=== PATIENT | male | born 1960 | race Caucasian/White ===

== ENCOUNTER 2017-03-15 10:39 | Observation (INO) | payer BC ==
[~2017-03-15] VITALS: Ht 170.2 cm; Wt 80.4 kg
[2017-03-15] VITALS (13 sets, daily range): BP systolic 92–115; BP diastolic 44–72
[2017-03-15] MEDS ORDERED: NITROGLYCERIN SUBLINGUAL 0.4 MG BOTTLE OF 25. SL PRN ×2 (11:00→12:45)
[2017-03-15] MEDS ORDERED: RANI150T2 PO (11:09)
[2017-03-15] MEDS ORDERED: ASPI325T8 PO (11:09)
[2017-03-15] MEDS ORDERED: LISI1TAB7 PO (11:09)
[2017-03-15] MEDS ORDERED: TAMS0.4C2 PO (11:09)
[2017-03-15] MEDS ORDERED: CHOL10003 PO (11:09)
[2017-03-15] MEDS ORDERED: MULT-658 PO (11:09)
--- NOTE | 2017-03-15 11:17 | RAD ---
One view of the Chest 03/15/2017 12:58 PM Indication: CP, dizziness, since this morning. Comparison: Chest radiograph March 11, 2006. Findings: There is no focal consolidation or infiltrate identified. There is no effusion or pneumothorax. prior median sternotomy noted. Heart size appears to be within normal limits.. No osseous abnormality is identified. Impression: No evidence of acute cardiopulmonary process.
--- NOTE | 2017-03-15 11:27 | ED.ADGEN ---
Past Medical History Past Medical History: CAD, High Cholesterol, Heart Disease, Hypertension, Other Additional Past Medical Histor: BPH Past Surgical History: Tonsillectomy, Other Additional Past Surgical Histo: "removal of thymus", cardiac cath with stent, knee and shoulder surgery Additional Information: 1 ppd x 50 years Alcohol Use: None Drug Use: None Adult General Chief Complaint Chief Complaint: CHEST PAIN HPI HPI Patient is a 56 year old man, history of hypertension, hypercholesterolemia, BPH, CAD status post stent placement in 2005, who smokes a pack of cigarettes a day for the past 50 years, who presents the emergency department with a complaint of chest tightness radiating to his jaw that began this morning. Associated with nausea, no shortness of breath, is a tightness across the left and central portion of his chest. Patient states that he woke up and was feeling "off". He states that he was washing his motorcycle, and began experiencing some chest tightness, states he was basically "ignoring it", however later in the morning around 10:00, it became worse, which prompted him to come to the ED for evaluation. He states that he was evaluated less than a year ago for similar symptoms, at that time he was told that he might need a catheterization, but it was not performed. He states he has not had a catheterization performed since his stent was placed. He has a family history of heart disease in his mother, and in his father, and a personal history of placement of 1 stent 11 years ago as stated. He states that he does take a full dose aspirin daily, has been taking all his medications as directed by his primary care provider Dr. Chavez. Denies any vomiting, states he was feeling nauseous with chest pain, no belching, no weakness, numbness or tingling, no back pain, no abdominal pain, no headache, no injuries, no swelling of the extremities, no rashes, no recent travel or surgery, no history of DVT or PE in himself or family members. Review of Systems Review of Systems Constitutional: Denies fever or chills. [] Eyes: Denies change in visual acuity. [] HENT: Denies nasal congestion or sore throat. [] Respiratory: Denies cough or shortness of breath. [] Cardiovascular: Complaining of left and central chest pain and pressure since this morning. GI: Nausea, Denies abdominal pain, vomiting, bloody stools or diarrhea. [] : Denies dysuria. [] Musculoskeletal: Denies back pain or joint pain. [] Integument: Denies rash. [] Neurologic: Denies headache, focal weakness or sensory changes. [] Endocrine: Denies polyuria or polydipsia. [] Lymphatic: Denies swollen glands. [] Psychiatric: Denies depression or anxiety. [] Current Medications Current Medications Current Medications Medications (Trade) Dose Ordered Sig/Eddie Start Time Stop Time Status Last Admin Dose Admin Fentanyl Citrate (Fentanyl 2ml Vial) 25 mcg PRN Q15MIN PRN 03/15/17 11:00 03/16/17 10:59 03/15/17 13:28 25 MCG Nitroglycerin (Nitrostat) 0.4 mg PRN Q5MIN PRN 03/15/17 11:00 03/16/17 10:59 03/15/17 11:27 0.4 MG Allergies Allergies Allergies Coded Allergies Type Severity Reaction Last Updated Verified codeine Allergy Intermediate 03/15/17 Yes Physical Exam Physical Exam Constitutional: Well developed, well nourished, no acute distress, non-toxic appearance. [] HENT: Normocephalic, atraumatic, bilateral external ears normal, oropharynx moist, no oral exudates, nose normal. [] Eyes: PERRLA, EOMI, conjunctiva normal, no discharge. [] Neck: Normal range of motion, no tenderness, supple, no stridor. [] Cardiovascular:Heart rate regular rhythm, no murmur, S1, S2, no rubs or gallops. No chest wall crepitus or tenderness, unable to reproduce symptoms with palpation. [] Lungs & Thorax: Bilateral breath sounds clear to auscultation, no wheezing, rhonchi, rales. No lesions. Abdomen: Bowel sounds normal, soft, no tenderness, no rebound, rigidity, no guarding, no masses, no pulsatile masses. [] Skin: Warm, dry, no erythema, no rash. [] Back: No tenderness, no CVA tenderness. [] Extremities: No tenderness, no cyanosis, no clubbing, ROM intact, no edema. Negative Homans sign. [] Neurologic: Alert and oriented X 3, normal motor function, normal sensory function, no focal deficits noted. [] Psychologic: Affect normal, judgement normal, mood normal. [] Current Patient Data Vital Signs Vital Signs Date Time Temp Pulse Resp B/P (MAP) Pulse Ox O2 Delivery O2 Flow Rate FiO2 03/15/17 11:27 75 111/67 03/15/17 10:51 98.4 20 96 Room Air 98.4 Lab Values Laboratory Tests Test 03/15/17 11:20 White Blood Count 11.1 x10^3/uL (4.0-11.0) H Red Blood Count 4.74 x10^6/uL (4.30-5.70) Hemoglobin 14.9 g/dL (13.0-17.5) Hematocrit 43.3 % (39.0-53.0) Mean Corpuscular Volume 91 fL (79-100) Mean Corpuscular Hemoglobin 32 pg (25-35) Mean Corpuscular Hemoglobin Concent 35 g/dL (31-37) Red Cell Distribution Width 12.7 % (11.5-14.5) Platelet Count 191 x10^3/uL (140-400) Neutrophils (%) (Auto) 61 % (31-73) Lymphocytes (%) (Auto) 27 % (24-48) Monocytes (%) (Auto) 6 % (0-9) Eosinophils (%) (Auto) 5 % (0-3) H Basophils (%) (Auto) 1 % (0-3) Neutrophils # (Auto) 6.8 x10^3uL (1.8-7.7) Lymphocytes # (Auto) 3.0 x10^3/uL (1.0-4.8) Monocytes # (Auto) 0.7 x10^3/uL (0.0-1.1) Eosinophils # (Auto) 0.5 x10^3/uL (0.0-0.7) Basophils # (Auto) 0.1 x10^3/uL (0.0-0.2) Prothrombin Time 13.0 SEC (11.7-14.0) Prothrombin Time INR 1.0 (0.8-1.1) PTT 30 SEC (24-38) Urine Collection Type Void Urine Color Yellow Urine Clarity Clear Urine pH 6.0 Urine Specific [place] 1.015 Urine Protein Negative mg/dL (NEG-TRACE) Urine Glucose (UA) Negative mg/dL (NEG) Urine Ketones (Stick) Negative mg/dL (NEG) Urine Blood Negative (NEG) Urine Nitrite Negative (NEG) Urine Bilirubin Negative (NEG) Urine Urobilinogen Dipstick 0.2 mg/dL (0.2 mg/dL) Urine Leukocyte Esterase Negative (NEG) Urine RBC 1-2 /HPF (0-2) Urine WBC Occ /HPF (0-4) Urine Squamous Epithelial Cells Occ /LPF Urine Bacteria 0 /HPF (0-FEW) Urine Mucus Slight /LPF Sodium Level 141 mmol/L (136-145) Potassium Level 4.2 mmol/L (3.5-5.1) Chloride Level 106 mmol/L (98-107) Carbon Dioxide Level 25 mmol/L (21-32) Anion Gap 10 (6-14) Blood Urea Nitrogen 19 mg/dL (8-26) Creatinine 1.0 mg/dL (0.7-1.3) Estimated GFR (Cockcroft-Gault) 77.6 Glucose Level 104 mg/dL (70-99) H Calcium Level 8.7 mg/dL (8.5-10.1) Total Bilirubin 0.3 mg/dL (0.2-1.0) Direct Bilirubin 0.1 mg/dL (0.0-0.2) Aspartate Amino Transferase (AST) 21 U/L (15-37) Alanine Aminotransferase (ALT) 24 U/L (16-63) Alkaline Phosphatase 96 U/L (46-116) Troponin I Quantitative < 0.017 ng/mL (0.000-0.055) SI-Ljr-G-Type Natriuretic Peptide 12 pg/mL (0-124) Total Protein 6.8 g/dL (6.4-8.2) Albumin 4.4 g/dL (3.4-5.0) Lipase 342 U/L (73-393) Urine Opiates Screen Neg (NEG) Urine Methadone Screen Neg (NEG) Urine Barbiturates Neg (NEG) Urine Phencyclidine Screen Neg (NEG) Urine Amphetamine/Methamphetamine Neg (NEG) Urine Benzodiazepines Screen Neg (NEG) Urine Cocaine Screen Neg (NEG) Urine Cannabinoids Screen Neg (NEG) Urine Ethyl Alcohol Neg (NEG) Laboratory Tests 03/15/17 11:20 Laboratory Tests 03/15/17 11:20 EKG EKG EC: Sinus rhythm, heart rate 81 beats/minute, upright axis, QTC of 400, [place] 124, QRS of 76, contour abnormalities noted in the anterior septal leads, contour abnormalities also noted in lead 2, no prior for comparison. Abnormal ECG, does not meet STEMI criteria. As interpreted by me. [] Radiology/Procedures Radiology/Procedures [][facility] [address] [place] [address] IMAGING REPORT Signed PATIENT: CLIVE OTOOLE ACCOUNT: [id number] : 1960 LOCATION: ER AGE: 56 SEX: M EXAM STATUS: PRE ER ORD. PHYSICIAN: SARAH HARO DO REASON: CP, dizziness, since this morning. PROCEDURE: PORTABLE CHEST 1V One view of the Chest 03/15/2017 12:58 PM Indication: CP, dizziness, since this morning. Comparison: Chest radiograph March 11, 2006. Findings: There is no focal consolidation or infiltrate identified. There is no effusion or pneumothorax. prior median sternotomy noted. Heart size appears to be within normal limits.. No osseous abnormality is identified. Impression: No evidence of acute cardiopulmonary process. DICTATED and SIGNED BY: CHAD WILLIS MD DATE: 03/15/17 1113 CC: SARAH HARO DO ~ Course & Med Decision Making Course & Med Decision Making Pertinent Labs and Imaging studies reviewed. (See chart for details) Patient resting comfortably at this time, has taken a 325 mg aspirin at home, nitroglycerin and fentanyl available to him. X-ray was unremarkable, laboratory studies revealed a normal troponin, ECG reveals contour normality is in the anterior and septal leads, also in inferior leads, but no prior for available for comparison. I did discuss these findings with patient, he is agreeable with admission to the hospital for additional evaluation for his complaints, and is been some time since his last cardiac evaluation. Findings as above discussed with Dr. Chavez, the patient's primary care provider, patient accepted his service as a full admission to the cardiac telemetry floor. Patient was evaluated in the ED by Dr. Lemon of cardiology, patient at this time has begun to reexperience symptoms, chest pain, with radiation to the jaw, he also states additional information, that he had a cardiac arrest prior to his previous catheterization in 2005, which she did not initially relate to me, after discussion and evaluation, Dr. Lemon will take the patient to the [facility] for additional evaluation. Patient remained stable in the ED, prepared for the [employer] with Dr. Lemon. Bridge orders entered per discussion. Dragon Disclaimer Dragon Disclaimer This electronic medical record was generated, in whole or in part, using a voice recognition dictation system. Departure Impression: Primary Impression: Chest pain Disposition: ADMITTED INPATIENT Admitting Physician: Raleigh Chavez Condition: IMPROVED SARAH HARO DO Mar 15, 2017 11:27
[2017-03-15 11:31] LABS: BASO # 0.1 x10^3/uL (0.0-0.2); BASO % 1 % (0-3); EOS % 5 % (0-3); HEMATOCRIT 43.3 % (39.0-53.0); HEMOGLOBIN 14.9 g/dL (13.0-17.5); LYMPH % 27 % (24-48); MEAN CORPUSCULAR HEMOGLOBIN 32 pg (25-35); MEAN CORPUSCULAR HGB CONC 35 g/dL (31-37); MEAN CORPUSCULAR VOLUME 91 fL (79-100); MONO % 6 % (0-9); NEUT % 61 % (31-73); PLATELET COUNT 191 x10^3/uL (140-400); RED BLOOD COUNT 4.74 x10^6/uL (4.30-5.70); RED CELL DISTRIBUTION WIDTH 12.7 % (11.5-14.5); WHITE BLOOD COUNT 11.1 x10^3/uL (4.0-11.0)
[2017-03-15 11:32] LABS: BILIRUBIN,URINE NEGATIVE (NEG); GLUCOSE,URINE NEGATIVE (NEG); NITRITE,URINE NEGATIVE (NEG); PROTEIN,URINE NEGATIVE (NEG-TRACE); UROBILINOGEN,URINE 0.2 mg/dL (0.2 mg/dL)
--- NOTE | 2017-03-15 11:33 | EKG ---
[facility] [address] [place] [address] Test Date: 2017-03-15 Test Time: 10:45:14 Pat Name: CLIVE OTOOLE Department: Room: Gender: M Court Usher: : 1960 Requested By: SARAH HARO Order Number: [id number] Reading MD: Shyla Brewer Measurements Intervals [place] Rate: 81 P: 47 LA: 124 QRS: 26 QRSD: 76 T: 28 QT: 344 QTc: 400 Interpretive Statements SINUS RHYTHM ATRIAL PREMATURE COMPLEX(ES) LOW LIMB LEAD VOLTAGE QRS(T) CONTOUR ABNORMALITY CONSISTENT WITH ANTEROSEPTAL INFARCT PROBABLY OLD Electronically Signed On 03-18-2017 21:22:50 CDT by Shyla Brewer
[2017-03-15 11:36] LABS: BARBITURATES NEG (NEG); BENZODIAZEPINES NEG (NEG); CANNABINOIDS NEG (NEG); COCAINE NEG (NEG); METHADONE NEG (NEG); OPIATES NEG (NEG); PHENCYCLIDINE NEG (NEG)
[2017-03-15 11:43] LABS: BACTERIA,URINE 0 /HPF (0-FEW); CALCIUM 8.7 mg/dL (8.5-10.1); GFR 77.6; POTASSIUM 4.2 mmol/L (3.5-5.1); SQUAMOUS EPITHELIAL CELL,UR OCC /LPF; WBC,URINE OCC /HPF (0-4)
[2017-03-15 11:48] LABS: ALBUMIN 4.4 g/dL (3.4-5.0); DIRECT BILIRUBIN 0.1 mg/dL (0.0-0.2); TOTAL BILIRUBIN 0.3 mg/dL (0.2-1.0); TOTAL PROTEIN 6.8 g/dL (6.4-8.2)
[2017-03-15] MEDS: fentaNYL PF VIAL 100 MCG/2 ML VIAL IV PRN ×2 (12:04→13:28)
[2017-03-15] MEDS ORDERED: ACETAMINOPHEN 325 MG TABLET. PO PRN (12:45)
[2017-03-15] MEDS ORDERED: ONDANSETRON PF 4 MG/2 ML VIAL. IV PRN (12:45)
[2017-03-15] MEDS ORDERED: fentaNYL PF VIAL 100 MCG/2 ML VIAL IV PRN (12:45)
[2017-03-15] MEDS: IV 1/2 NORMAL SALINE 1,000 ML IV SCH (13:23)
--- NOTE | 2017-03-15 13:32 | ACF ---
Admit Criteria Forms Admit Criteria Forms Admit Criteria Forms CARDIOLOGY GRG Clinical Indications for Admission to Inpatient Care ( Place 'X' for any and all applicable criteria): Hospital admission is needed for appropriate care of the patient because of ANY ONE of the following (1): [ ] I. Hemodynamic instability as indicated by ALL of the following (1)(2)(3) (4)(5) [ ]a) Vital signs or other findings not as expected for chronic patient condition or baseline [ ]b) Instability indicated by ANY ONE of the following: [ ]i) Hypotension [ ]ii) Symptomatic Tachycardia unresponsive to treatment ( e.g., analgesia, fluids, sedation as indicated) [ ]iii) Inadequate perfusion indicated by ANY ONE of the following: [ ] 1) Lactic acidosis (> 2 mmol/L) [ ] 2) New abnormal capillary refill (> 3 seconds) [ ] 3) Reduced urine output [ ] 4) New altered mental status [ ]iv) Orthostatic vital sign changes unresponsive to treatment (e.g., fluids) [ ]v) IV inotropic or vasopressor medication required to maintain adequate blood pressure or perfusion [ ] II. Severe heart failure as indicated by ANY ONE of the following(17)(18) [ ]a) Respiratory distress [ ]b) Hypotension [ ]c) Anasarca (refractory to outpatient therapy) [ ]d) Cardiac arrhythmias of immediate concern [ ]e) Myocardial ischemia [ ] III. Cardiac arrhythmias or findings of immediate concern indicated by ANY ONE of the following (19)(20): [ ] a) Heart rhythms that are inherently dangerous or unstable indicated by ANY ONE of the following (21)(22)(23): [ ] i) Resuscitated ventricular fibrillation or cardiac arrest [ ] ii) Ventricular escape rhythm [ ] iii) Sustained ventricular tachycardia (30 seconds or more of ventricular rhythm at greater than 100 beats per minute) [ ] iv) Nonsustained ventricular tachycardia and ANY ONE of the following: [ ] 1) Suspected cardiac ischemia as cause or consequence of ventricular tachycardia [ ] 2) In setting of acute myocarditis [ ] b) Unstable cardiac conduction defects indicated by ANY ONE of the following(23)(24)(25) [ ] i) Type II second-degree atrioventricular block [ ]ii) Third-degree atrioventricular block [ ]iii) New-onset left bundle branch block with suspected myocardial ischemia [ ]c) Any heart rhythm and ANY ONE of the following (21)(22)(26)(27) (28) [ ] i) Continuous long-term ECG monitoring needed (e.g., initiation of drug requiring monitoring for more than 24 hours) [ ] ii) Patient has automatic implanted cardioverter defibrillator that is repeatedly firing, malfunctioning, or in need of immediate adjustment of settings beyond the scope of ambulatory or observation care [ ]d) Heart rhythms of concern due to ANY ONE of the following: [ ] i) Hypotension [ ] ii) Respiratory distress [ ] iii) Association with other significant symptoms (e.g., bradycardia with syncope or ongoing dizziness, supraventricular tachycardia with chest pain (14)(15)(17) [ ] IV. Monitoring for cardiac contusion beyond the scope of observation care needed [A](30)(31)(32) [ ] V. Surgical or device complication (e.g., valve replacement complication , pacemaker dysfunction) (35)(41)(44)(45)(46) [ ] . Inpatient palliative care needed. [B](49) Also use Inpatient Palliative Care Criteria [ ] VII. Nonbacterial thrombotic (marantic) endocarditis (36)(43)(47)(48) [X ] VIII. Cardiology condition, symptom, or finding for which emergency and observation care has failed or are not considered appropriate. [ ] IX. Acute valvular disease requiring inpatient as indicated by ANY ONE of the following (41) [ ]a) Acute valvular regurgitation (42) [ ]b) Noninfectious valvulitis (43) [ ]c) Obstructive valve thrombosis [ ]d) Paravalvular leak [ ]e) Other significant valvular disorder remaining after emergency or observation level of care (as appropriate) [ ]X. Pericardial disease requiring inpatient treatment as indicated by ANY ONE of the following (33)(34)(35)(36)(37) [ ]a) Suspected tamponade (38)(39)(40) [ ]b) Hemopericardium [ ]c) Other significant pericardial disorder remaining after emergency or observation level of care (as appropriate) [ ] XI. Cardiac ischemia beyond scope of emergency and observation care. [ ] XII. Hypertension requiring inpatient treatment as indicated by ANY ONE of the following (6)(7)(8) [ ]a) SBP greater than 220 mm Hg or DBP greater than 120 mmHg despite treatment [ ]b) SBP greater than 140 mm Hg or DBP greater than 100 mm Hg with evidence of acute end organ damage as indicated by ANY ONE of the following [ ] i) Encephalopathy [ ] ii) Acute renal failure as indicated by new onset of ANY ONE of the following (9)(10)(11)(12)(13) [ ]1) 3-fold rise in serum creatinine from baseline [ ]2) Serum creatinine greater than 4 mg/dL ( 354 micromoles/L) with acute rise greater than 0.5 mg/dL (44.2 micromoles/L) [ ]3) Reduction of more than 75% in estimated glomerular filtration rate from baseline [ ]4) Estimated glomerular filtration rate less than 35 mL/min/1.73m2 (0.59 mL/sec/1.73m2) in child up to 18 years of age [ ]5) Cessation of urine output indicated by ALL of the following [ ]A. Adequate volume status [ ]B. Inadequate urine output as indicated by ANY ONE of the following [ ]a. Urine output less than 0.3 mL/kg/hr for 24 hours [ ]b. Anuria (urine output less than 0.1 mL/kg/hr) for 12 hours [ ] iii) Aortic dissection [ ] iv) Myocardial Ischemia [ ] v) Left ventricular heart failure [ ]vi) Retinal Hemorrhage [ ]vii) Other significant finding [ ]c) Hypertension in child requiring inpatient treatment as indicated by ALL of the following(14)(15)(16) [ ] i) Outpatient treatment not effective, not available, or not appropriate [ ]ii) SBP or DBP greater than 95th percentile for age [ ]iii) Evidence of acute end organ damage as indicated by ANY ONE of the following [ ]1) Altered mental status [ ]2) Acute renal failure as indicated by new onset of ANY ONE of the following(9)(10)(11)(12)(13) [ ]A. 3-fold rise in serum creatinine from baseline [ ]B. Serum creatinine greater than 4 mg/dL (354 micromoles/L) with acute rise greater than 0.5 mg/dL (44.2 micromoles/L) [ ]C. Reduction of more than 75% in estimated glomerular filtration rate from baseline [ ]D. Estimated glomerular filtration rate less than 35 mL/min/1.73m2 (0.59 mL/sec/1.73m2) in child up to 18 years of age [ ]E. Cessation of urine output indicated by ALL of the following [ ]a. Adequate volume status [ ]b. Inadequate urine output as indicated by ANY ONE of the following [ ]i) Urine output less than 0.3 mL/kg/hr for 24 hours [ ]ii) Anuria ( urine output less than 0.1 mL/kg/hr) for 12 hours [ ]3) Severe headache [ ]4) Visual disturbance [ ]5) Retinal hemorrhage [ ]6) Other significant finding [ ]XIII. Complications of transplanted heart indicated by ANY ONE of the following(61): [ ]a) Acute graft rejection requiring inpatient management (eg, intravenous immunosuppression)(62)(63) [ ]b) Acute graft heart failure indicated by ANY ONE of the following(64): [ ]i) Hemodynamic instability [ ]ii) Cardiac arrhythmias of immediate concern [ ]iii) Pulmonary edema that is very severe (eg, mechanical ventilation needed, imminent or likely, need for 100% oxygen to keep oxygen saturation above 90%) [ ]iv) Pulmonary edema that is persistent as indicated by ALL of the following: [ ]1) New need for oxygen therapy to keep oxygen saturation above 90% (or increased FiO2 need from baseline) [ ]2) Has not improved sufficiently with emergency department or observation care IV diuretics or other heart failure treatments[E] [ ]v) Altered mental status that is severe or persistent [ ]vi) Increased creatinine (new on laboratory test) with reduction of more than 50% in estimated glomerular filtration rate from baseline [ ]vii) Progressively (ongoing) rising creatinine (known from past laboratory test) with reduction of more than 25% in estimated glomerular filtration rate from baseline [ ]viii) Acute renal failure [ ]ix) Acute peripheral ischemia (eg, examination shows pulseless, cool, mottled, or cyanotic extremity) [ ]x) Pulmonary artery catheter monitoring needed [ ]xi) Other sign or symptom of heart failure requiring inpatient treatment (ie, too severe or not responsive to outpatient and observation care treatment) [ ]c) Infection requiring inpatient management (eg, Hemodynamic instability, need for intravenous antimicrobial treatment)(66)(67)(68)(69)(70) [ ]d) Cardiac allograft vasculopathy requiring inpatient management ( eg evidence of cardiac ischemia)(71) [ ]e) Other complication of transplanted heart (eg, stroke, severe pulmonary hypertension, severe valvular dysfunction) requiring inpatient management(72) The original [facility] content created by [facility] has been revised. The portions of the content which have been revised are identified through the use of italic text or in bold, and [facility] has neither reviewed nor approved the modified material. All other unmodified content is copyright [facility]. Please see references footnoted in the original [facility] edition 2016 OLIVERIO HEREDIA Mar 15, 2017 13:32
[2017-03-15] MEDS ORDERED: IOHEXOL 350 MG/ML 100 ML VIAL. ONE ×2 (13:59→14:36)
[2017-03-15] MEDS ORDERED: LIDOCAINE 2% 20 ML VIAL. ONE (13:59)
[2017-03-15] MEDS ORDERED: fentaNYL PF VIAL 100 MCG/2 ML VIAL ONE (14:27)
[2017-03-15] MEDS ORDERED: MIDAZOLAM HCL/PF 2 MG/2 ML VIAL. ONE (14:28)
[2017-03-15] MEDS ORDERED: fentaNYL PF VIAL 100 MCG/2 ML VIAL IV ONE (14:45)
[2017-03-15] MEDS ORDERED: MIDAZOLAM HCL/PF 2 MG/2 ML VIAL. IV ONE (14:45)
[2017-03-15] MEDS ORDERED: LIDOCAINE 2% 20 ML VIAL. IJ ONE (14:45)
[2017-03-15] MEDS ORDERED: IOHEXOL 350 MG/ML 100 ML VIAL. IART ONE (14:45)
[2017-03-15] MEDS ORDERED: CONTRAST GIVEN MC PRN (15:00)
[2017-03-15] MEDS ORDERED: NICOTINE 21MG PATCH. TD PRN (18:45)
--- NOTE | 2017-03-15 19:11 | CARD ---
APPROVED REPORT Procedure(s) performed: Left Heart Catheterization MODERATE SEDATION: 31 MINUTES HISTORY previous AK: coronary artery disease, tobacco history() : The patient is a current smoker, previous P CI (The PCI date was 09/06/2011), hypertension, dyslipidemia, family history of premature CAD. INDICATION The indication(s) include : unstable angina . CASE TECHNIQUE The patient was brought emergently into the cardiac catheterization lab. A timeout was performed conf irming the patient's name, date of , procedure, and site of procedure. All necessary parties wer e wearing the appropriate personal protective equipment and radiation monitoring devices. After expla ining the risks and benefits of the procedure, informed consent was obtained.(See nursing notes for m edications administered). The right groin was sterilely prepped and draped. The right femoral groin w as infiltrated with 2% Lidocaine subcutaneous anesthesia. During this case, Fluoroscopy and Iso-osmol ar contrast were used for imaging. A sheath was inserted into the right femoral artery without diffic ulty. Coronary angiography was performed using coronary diagnostic catheters. The left coronary syste m was accessed and visualized with a Diagnostic catheter. The right coronary system was accessed and visualized with a Diagnostic catheter. The left ventricle was accessed and visualized with a Diagnost ic catheter. Left ventricular/Aortic Valve gradient assessed on pullback. Left ventriculogram was per formed in VERDUGO projection. Pre-demployment femoral angiogram was performed . Closure device was deploy ed with a Angioseal without any complications. The patient tolerated the procedure well and there wer e no complications associated with the procedure. Coronary Angiography The patient's coronary anatomy is co-dominant. The left main coronary artery is a large size vessel free of disease. The left main bifurcates to the left anterior descending and circumflex. The left anterior descending artery is a large size vessel with stenosis. There is a 40% stenosis in the mid segment. proximal to the stent, the stent is open The first diagonal branch is a small size v essel free of disease. The second diagonal branch is a small size vessel free of disease. The third d iagonal branch is a small size vessel free of disease. The circumflex artery is a large size vessel free of disease. The first obtuse marginal branch is a m edium size vessel free of disease. The second obtuse marginal branch is a small size vessel free of d isease. The third obtuse marginal branch is a small size vessel free of disease. The left posterior d escending artery is a medium size vessel free of disease. The right coronary artery is a large size vessel with intimal irregularities. There is a 40% stenosis in the mid segment. The right posterolateral branch is a small size vessel free of disease. Left Ventriculography The left ventricle is normal in size with normal contractility. The left ventricular ejection fractio n is estimated to be 60%. The left ventricular end diastolic pressure is 20 mmHg. There was no gradie nt across the aortic valve upon pullback. Conclusion This pt does not have any significant obstructive coronary artery disease and the stent is open. Consider GI work up.
--- NOTE | 2017-03-15 19:31 | PDOC2 ---
CONSULT Date of Consult Date of Consult DATE: 03/15/17 TIME: 19:18 Reason for Consult Reason for Consult: Chest pain Identification/Chief Complaint Chief Complaint Chest pain Problems: History of Present Illness Reason for Visit: Pt is a 56 y o gentleman that has a Hx of CAD and a stent to the LAD that is a smoker. The pt refers that he has had 2 episodes of cardiac arrest in the past, evaluated and treated in the Hospital but he does not know a lot about the situation. He comes in after an episode of chest pain with neck tightness and he feels like his teeth are "floating". No palpitations, no significant dyspnea. EKG: RSR, no acute ST abnormality Enzymes: first set negative Pt was still having ongoing chest pains at the time that I saw him in the ER. Past Medical History Cardiovascular: CAD, HTN Pulmonary: COPD Current Problem List Problem List Problems Medical Problems: (1) Chest pain Status: Acute Current Medications Current Medications Current Medications Nitroglycerin (Nitrostat) 0.4 mg PRN Q5MIN PRN SL CP RATING > 1/10 Last administered on 03/15/17 11:27; Start 03/15/17 at 11:00; Stop 03/16/17 at 10:59 Fentanyl Citrate (Fentanyl 2ml Vial) 25 mcg PRN Q15MIN PRN IV PAIN GREATER THAN 3/10 Last administered on 03/15/17 13:28; Start 03/15/17 at 11:00; Stop at 10:59 Ondansetron HCl (Zofran) 4 mg PRN Q8HRS PRN IV NAUSEA/VOMITING; Start 03/15/17 at 12:45; Stop 03/16/17 at 12:44 Fentanyl Citrate (Fentanyl 2ml Vial) 50 mcg PRN Q2HR PRN IV PAIN; Start at 12:45; Stop 03/16/17 at 12:44 Acetaminophen (Tylenol) 650 mg PRN Q4HRS PRN PO FEVER; Start 03/15/17 at 12:45 ; Stop 03/16/17 at 12:44 Nitroglycerin (Nitrostat) 0.4 mg PRN Q5MIN PRN SL CHEST PAIN; Start 03/15/17 at 12:45; Stop 03/16/17 at 12:44 Sodium Chloride 1,000 ml @ 80 mls/hr [id number] IV Last administered on 13:23; Start 03/15/17 at 13:15 Iohexol (Omnipaque 350 Mg/ml) 100 ml STK-MED ONCE .ROUTE ; Start 03/15/17 at 13: 59; Stop 03/15/17 at 14:00; Status DC Heparin Sodium/ Sodium Chloride 500 ml @ As Directed STK-MED ONCE .ROUTE ; Start 03/15/17 at 13:59; Stop 03/15/17 at 14:00; Status DC Lidocaine HCl 20 ml STK-MED ONCE .ROUTE ; Start 03/15/17 at 13:59; Stop at 14:00; Status DC Fentanyl Citrate (Fentanyl 2ml Vial) 100 mcg STK-MED ONCE .ROUTE ; Start at 14:27; Stop 03/15/17 at 14:28; Status DC Midazolam HCl (Versed) 2 mg STK-MED ONCE .ROUTE ; Start 03/15/17 at 14:28; Stop 03/15/17 at 14:29; Status DC Heparin Sodium/ Sodium Chloride 1,000 unit 1X ONCE IART Last administered on 14:53; Start 03/15/17 at 14:45; Stop 03/15/17 at 14:46; Status DC Midazolam HCl (Versed) 2 mg 1X ONCE IV Last administered on 03/15/17 14:54; Start 03/15/17 at 14:45; Stop 03/15/17 at 14:46; Status DC Fentanyl Citrate (Fentanyl 2ml Vial) 100 mcg 1X ONCE IV Last administered on 14:54; Start 03/15/17 at 14:45; Stop 03/15/17 at 14:46; Status DC Iohexol (Omnipaque 350 Mg/ml) 100 ml 1X ONCE IART Last administered on 14:53; Start 03/15/17 at 14:45; Stop 03/15/17 at 14:46; Status DC Lidocaine HCl 20 ml 1X ONCE IJ Last administered on 03/15/17 14:53; Start 06/22 at 14:45; Stop 03/15/17 at 14:46; Status DC Iohexol (Omnipaque 350 Mg/ml) 100 ml STK-MED ONCE .ROUTE ; Start 03/15/17 at 14: 36; Stop 03/15/17 at 14:37; Status DC Info (Do NOT chart on this entry -- for MONITORING) 1 each PRN DAILY PRN MC SEE COMMENTS; Start 03/15/17 at 15:00; Stop 03/17/17 at 14:59 Nicotine (Nicoderm Cq 21mg) 1 patch PRN DAILY PRN TD SMOKING CESSATION; Start 03/15/17 at 18:45 Aspirin (Dung Aspirin) 325 mg DAILYWBKFT PO ; Start 03/16/17 at 08:00 Vitamin D (Vitamin D3) 1,000 unit DAILY PO ; Start 03/16/17 at 09:00 Tamsulosin HCl (Flomax) 0.4 mg DAILY PO ; Start 03/16/17 at 09:00 Lisinopril (Prinivil) 20 mg DAILY PO ; Start 03/16/17 at 09:00 Multivitamins (Thera M Plus) 1 tab DAILY PO ; Start 03/16/17 at 09:00 Famotidine (Pepcid) 20 mg BID PO ; Start 03/15/17 at 21:00 Multi-Ingredient Mouthwash/Gargle (Gi Cocktail Single Dose) 15 ml PRN Q4HRS PRN SWSW CHEST PAIN; Start 03/15/17 at 19:15 Active Scripts Active Reported Ranitidine Hcl 150 Mg Tablet 1 Tab PO BID Lisinopril-Hctz 20-25 Mg Tab (Lisinopril/Hydrochlorothiazide) 1 Each Tablet 1 Tab PO DAILY Tamsulosin Hcl 0.4 Mg Cap.er.24h 1 Cap PO DAILY Aspirin 325 Mg Tablet 1 Tab PO DAILY Centrum Silver Tablet (Multivits-Min/Fa/Lycopene/Lut) 1 Each Tablet 1 Each PO DAILY Vitamin D3 (Cholecalciferol (Vitamin D3)) 1,000 Unit Tablet 1 Tab PO DAILY Allergies Allergies: Coded Allergies: codeine (Verified Allergy, Intermediate, 03/15/17) Physical Exam General: Alert, Oriented X3, Cooperative HEENT: Atraumatic, PERRLA Lungs: Clear to auscultation Heart: Regular rate, Normal S1, Normal S2 Abdomen: Normal bowel sounds, Soft Extremities: No edema Psych/Mental Status: Mental status NL Vitals VITALS Vital Signs Date Time Temp Pulse Resp B/P (MAP) Pulse Ox O2 Delivery O2 Flow Rate FiO2 7/10/17 17:13 58 102/66 (78) 03/15/17 15:37 98 Room Air 03/15/17 15:15 97.4 20 97.4 Labs Labs Laboratory Tests Test 03/15/17 11:20 03/15/17 17:20 White Blood Count 11.1 x10^3/uL (4.0-11.0) Red Blood Count 4.74 x10^6/uL (4.30-5.70) Hemoglobin 14.9 g/dL (13.0-17.5) Hematocrit 43.3 % (39.0-53.0) Mean Corpuscular Volume 91 fL (79-100) Mean Corpuscular Hemoglobin 32 pg (25-35) Mean Corpuscular Hemoglobin Concent 35 g/dL (31-37) Red Cell Distribution Width 12.7 % (11.5-14.5) Platelet Count 191 x10^3/uL (140-400) Neutrophils (%) (Auto) 61 % (31-73) Lymphocytes (%) (Auto) 27 % (24-48) Monocytes (%) (Auto) 6 % (0-9) Eosinophils (%) (Auto) 5 % (0-3) Basophils (%) (Auto) 1 % (0-3) Neutrophils # (Auto) 6.8 x10^3uL (1.8-7.7) Lymphocytes # (Auto) 3.0 x10^3/uL (1.0-4.8) Monocytes # (Auto) 0.7 x10^3/uL (0.0-1.1) Eosinophils # (Auto) 0.5 x10^3/uL (0.0-0.7) Basophils # (Auto) 0.1 x10^3/uL (0.0-0.2) Prothrombin Time 13.0 SEC (11.7-14.0) Prothromb Time International Ratio 1.0 (0.8-1.1) Activated Partial Thromboplast Time 30 SEC (24-38) Urine Collection Type Void Urine Color Yellow Urine Clarity Clear Urine pH 6.0 Urine Specific [place] 1.015 Urine Protein Negative mg/dL (NEG-TRACE) Urine Glucose (UA) Negative mg/dL (NEG) Urine Ketones (Stick) Negative mg/dL (NEG) Urine Blood Negative (NEG) Urine Nitrite Negative (NEG) Urine Bilirubin Negative (NEG) Urine Urobilinogen Dipstick 0.2 mg/dL (0.2 mg/dL) Urine Leukocyte Esterase Negative (NEG) Urine RBC 1-2 /HPF (0-2) Urine WBC Occ /HPF (0-4) Urine Squamous Epithelial Cells Occ /LPF Urine Bacteria 0 /HPF (0-FEW) Urine Mucus Slight /LPF Sodium Level 141 mmol/L (136-145) Potassium Level 4.2 mmol/L (3.5-5.1) Chloride Level 106 mmol/L (98-107) Carbon Dioxide Level 25 mmol/L (21-32) Anion Gap 10 (6-14) Blood Urea Nitrogen 19 mg/dL (8-26) Creatinine 1.0 mg/dL (0.7-1.3) Estimated GFR (Cockcroft-Gault) 77.6 Glucose Level 104 mg/dL (70-99) Calcium Level 8.7 mg/dL (8.5-10.1) Total Bilirubin 0.3 mg/dL (0.2-1.0) Direct Bilirubin 0.1 mg/dL (0.0-0.2) Aspartate Amino Transf (AST/SGOT) 21 U/L (15-37) Alanine Aminotransferase (ALT/SGPT) 24 U/L (16-63) Alkaline Phosphatase 96 U/L (46-116) Troponin I Quantitative < 0.017 ng/mL (0.000-0.055) < 0.017 ng/mL (0.000-0.055) KB-Czc-Y-Type Natriuretic Peptide 12 pg/mL (0-124) Total Protein 6.8 g/dL (6.4-8.2) Albumin 4.4 g/dL (3.4-5.0) Lipase 342 U/L (73-393) Urine Opiates Screen Neg (NEG) Urine Methadone Screen Neg (NEG) Urine Barbiturates Neg (NEG) Urine Phencyclidine Screen Neg (NEG) Urine Amphetamine/Methamphetamine Neg (NEG) Urine Benzodiazepines Screen Neg (NEG) Urine Cocaine Screen Neg (NEG) Urine Cannabinoids Screen Neg (NEG) Urine Ethyl Alcohol Neg (NEG) Laboratory Tests Test 03/15/17 11:20 03/15/17 17:20 White Blood Count 11.1 x10^3/uL (4.0-11.0) Red Blood Count 4.74 x10^6/uL (4.30-5.70) Hemoglobin 14.9 g/dL (13.0-17.5) Hematocrit 43.3 % (39.0-53.0) Mean Corpuscular Volume 91 fL (79-100) Mean Corpuscular Hemoglobin 32 pg (25-35) Mean Corpuscular Hemoglobin Concent 35 g/dL (31-37) Red Cell Distribution Width 12.7 % (11.5-14.5) Platelet Count 191 x10^3/uL (140-400) Neutrophils (%) (Auto) 61 % (31-73) Lymphocytes (%) (Auto) 27 % (24-48) Monocytes (%) (Auto) 6 % (0-9) Eosinophils (%) (Auto) 5 % (0-3) Basophils (%) (Auto) 1 % (0-3) Neutrophils # (Auto) 6.8 x10^3uL (1.8-7.7) Lymphocytes # (Auto) 3.0 x10^3/uL (1.0-4.8) Monocytes # (Auto) 0.7 x10^3/uL (0.0-1.1) Eosinophils # (Auto) 0.5 x10^3/uL (0.0-0.7) Basophils # (Auto) 0.1 x10^3/uL (0.0-0.2) Prothrombin Time 13.0 SEC (11.7-14.0) Prothromb Time International Ratio 1.0 (0.8-1.1) Activated Partial Thromboplast Time 30 SEC (24-38) Urine Collection Type Void Urine Color Yellow Urine Clarity Clear Urine pH 6.0 Urine Specific [place] 1.015 Urine Protein Negative mg/dL (NEG-TRACE) Urine Glucose (UA) Negative mg/dL (NEG) Urine Ketones (Stick) Negative mg/dL (NEG) Urine Blood Negative (NEG) Urine Nitrite Negative (NEG) Urine Bilirubin Negative (NEG) Urine Urobilinogen Dipstick 0.2 mg/dL (0.2 mg/dL) Urine Leukocyte Esterase Negative (NEG) Urine RBC 1-2 /HPF (0-2) Urine WBC Occ /HPF (0-4) Urine Squamous Epithelial Cells Occ /LPF Urine Bacteria 0 /HPF (0-FEW) Urine Mucus Slight /LPF Sodium Level 141 mmol/L (136-145) Potassium Level 4.2 mmol/L (3.5-5.1) Chloride Level 106 mmol/L (98-107) Carbon Dioxide Level 25 mmol/L (21-32) Anion Gap 10 (6-14) Blood Urea Nitrogen 19 mg/dL (8-26) Creatinine 1.0 mg/dL (0.7-1.3) Estimated GFR (Cockcroft-Gault) 77.6 Glucose Level 104 mg/dL (70-99) Calcium Level 8.7 mg/dL (8.5-10.1) Total Bilirubin 0.3 mg/dL (0.2-1.0) Direct Bilirubin 0.1 mg/dL (0.0-0.2) Aspartate Amino Transf (AST/SGOT) 21 U/L (15-37) Alanine Aminotransferase (ALT/SGPT) 24 U/L (16-63) Alkaline Phosphatase 96 U/L (46-116) Troponin I Quantitative < 0.017 ng/mL (0.000-0.055) < 0.017 ng/mL (0.000-0.055) ZV-Dol-L-Type Natriuretic Peptide 12 pg/mL (0-124) Total Protein 6.8 g/dL (6.4-8.2) Albumin 4.4 g/dL (3.4-5.0) Lipase 342 U/L (73-393) Urine Opiates Screen Neg (NEG) Urine Methadone Screen Neg (NEG) Urine Barbiturates Neg (NEG) Urine Phencyclidine Screen Neg (NEG) Urine Amphetamine/Methamphetamine Neg (NEG) Urine Benzodiazepines Screen Neg (NEG) Urine Cocaine Screen Neg (NEG) Urine Cannabinoids Screen Neg (NEG) Urine Ethyl Alcohol Neg (NEG) Assessment/Plan Assessment/Plan This pt with the Hx of CAD and a stent to the LAD is having ongoing chest pain. EKG and enzymes are normal. In view of his history, risk factors and symptoms this is suspicious for unstable angina. I discussed the situation, options, risks and the pt chose to go to the laboratory chemist for an emergency cath-poss. Agree with this approach. Will take to the laboratory chemist now Thank you for asking me to participate in the care of this pt. MENA MCINTOSH MD Mar 15, 2017 19:30
--- NOTE | 2017-03-15 19:31 | PDOC ---
MODERATE SEDATION ASSESSMENT RISKS/ALTERNATIVES Risks/Alternatives Risks and alternatives of this type of sedation and procedure discussed with: RISK/ALTERNATIVES: Patient H & P ON CHART H & P H & P on chart and reviewed for co-morbid conditions and appropriate labs. H&P ON CHART: Yes STATUS PREG STATUS ASSESSED: Yes MEDS/ALLERGIES REVIEWED Meds/Allergies Reviewed Medications and Allergies including time and route of recently administered narcotics and sedatives. MEDS/ALLERGIES REVIEWED: Yes ASA RATING ASA RATING: II AIRWAY ASSESSMENT Airway Assessment Airway patency, oral function limitations, presence of caps, crowns, dentures, partials, and ability to extend neck assessed. AIRWAY ASSESSMENT: Yes MALLAMPATI SCORE MALLAMPATI SCORE: II PRE-SEDATION ASSESSMENT PRE-SEDATION ASSESSMENT: Yes MENA MCINTOSH MD Mar 15, 2017 19:31
[2017-03-15] MEDS: LIDO:MAALOX:DONNATAL 1:1:1 15 ML SINGLE DOSE SWSW PRN ×2 (19:34→23:52)
[2017-03-15] MEDS: FAMOTIDINE 20 MG TABLET. PO SCH (20:49)
[2017-03-16] MEDS: IV 1/2 NORMAL SALINE 1,000 ML IV SCH (01:45)
[2017-03-16 02:50] VITALS: BP 104/65
[2017-03-16 05:16] LABS: BASO % 0 % (0-3); EOS % 6 % (0-3); HEMATOCRIT 40.9 % (39.0-53.0); HEMOGLOBIN 14.3 g/dL (13.0-17.5); LYMPH # 2.7 x10^3/uL (1.0-4.8); LYMPH % 35 % (24-48); MEAN CORPUSCULAR HEMOGLOBIN 32 pg (25-35); MEAN CORPUSCULAR HGB CONC 35 g/dL (31-37); MEAN CORPUSCULAR VOLUME 90 fL (79-100); MONO % 8 % (0-9); NEUT % 51 % (31-73); PLATELET COUNT 170 x10^3/uL (140-400); RED BLOOD COUNT 4.53 x10^6/uL (4.30-5.70); WHITE BLOOD COUNT 7.6 x10^3/uL (4.0-11.0)
[2017-03-16 05:59] LABS: ALBUMIN 3.6 g/dL (3.4-5.0); ALBUMIN/GLOBULIN RATIO 1.6 (1.0-1.7); CALCIUM 8.6 mg/dL (8.5-10.1); GFR 77.6; POTASSIUM 4.1 mmol/L (3.5-5.1); TOTAL BILIRUBIN 0.3 mg/dL (0.2-1.0); TOTAL PROTEIN 5.9 g/dL (6.4-8.2)
[2017-03-16 07:45] VITALS: BP 108/68
[2017-03-16] MEDS ORDERED: ASPIRIN 325 MG TABLET PO SCH (08:00)
[2017-03-16] MEDS ORDERED: LISINOPRIL 20 MG TABLET PO SCH (09:00)
[2017-03-16] MEDS ORDERED: CHOLECALCIFEROL (VITAMIN D3) 1,000 UNIT TABLET PO SCH (09:00)
[2017-03-16] MEDS ORDERED: MULTIVITAMIN with MINERAL TABLET. PO SCH (09:00)
[2017-03-16] MEDS ORDERED: TAMSULOSIN 0.4 MG CAP.ER.24H. PO SCH (09:00)
--- NOTE | 2017-03-16 09:43 | PDOC ---
PROGRESS NOTES Subjective Subjective Mr Dumont did well overnight. He still complains of chest tightness. He can breathe with ease. He has a sinus rhythm. Overnight the patient received 2 GI cocktails which helped with his pain. Objective Objective Vital Signs Date Time Temp Pulse Resp B/P (MAP) Pulse Ox O2 Delivery O2 Flow Rate FiO2 03/16/17 07:45 97.5 68 18 108/68 (81) 98 Room Air 97.5 Intake and Output 03/16/17 07:00 Intake Total 720 ml Output Total 100 ml Balance 620 ml Intake Oral 720 ml Output Urine Total 100 ml # Voids 1 Physical Exam Heart: Regular rate (and rhythm), Normal S1, Normal S2 Extremities: No edema, Normal pulses (2/4 b/l radial) General: Alert, No acute distress Lungs: Clear to auscultation (b/l), Normal air movement Assessment Assessment Mr Dumont had a negative heart cath, likely his chest pain is GI related. GI has been consulted on patient Problems Medical Problems: (1) Chest pain Status: Acute Comment Review of Relevant I have reviewed the following items emeli (where applicable) has been applied. Labs Laboratory Tests Test 03/15/17 11:20 03/15/17 17:20 03/15/17 23:10 03/16/17 04:30 White Blood Count 11.1 x10^3/uL (4.0-11.0) 7.6 x10^3/uL (4.0-11.0) Red Blood Count 4.74 x10^6/uL (4.30-5.70) 4.53 x10^6/uL (4.30-5.70) Hemoglobin 14.9 g/dL (13.0-17.5) 14.3 g/dL (13.0-17.5) Hematocrit 43.3 % (39.0-53.0) 40.9 % (39.0-53.0) Mean Corpuscular Volume 91 fL (79-100) 90 fL (79-100) Mean Corpuscular Hemoglobin 32 pg (25-35) 32 pg (25-35) Mean Corpuscular Hemoglobin Concent 35 g/dL (31-37) 35 g/dL (31-37) Red Cell Distribution Width 12.7 % (11.5-14.5) 13.0 % (11.5-14.5) Platelet Count 191 x10^3/uL (140-400) 170 x10^3/uL (140-400) Neutrophils (%) (Auto) 61 % (31-73) 51 % (31-73) Lymphocytes (%) (Auto) 27 % (24-48) 35 % (24-48) Monocytes (%) (Auto) 6 % (0-9) 8 % (0-9) Eosinophils (%) (Auto) 5 % (0-3) 6 % (0-3) Basophils (%) (Auto) 1 % (0-3) 0 % (0-3) Neutrophils # (Auto) 6.8 x10^3uL (1.8-7.7) 3.9 x10^3uL (1.8-7.7) Lymphocytes # (Auto) 3.0 x10^3/uL (1.0-4.8) 2.7 x10^3/uL (1.0-4.8) Monocytes # (Auto) 0.7 x10^3/uL (0.0-1.1) 0.6 x10^3/uL (0.0-1.1) Eosinophils # (Auto) 0.5 x10^3/uL (0.0-0.7) 0.4 x10^3/uL (0.0-0.7) Basophils # (Auto) 0.1 x10^3/uL (0.0-0.2) 0.0 x10^3/uL (0.0-0.2) Prothrombin Time 13.0 SEC (11.7-14.0) Prothromb Time International Ratio 1.0 (0.8-1.1) Activated Partial Thromboplast Time 30 SEC (24-38) Urine Collection Type Void Urine Color Yellow Urine Clarity Clear Urine pH 6.0 Urine Specific Gregory 1.015 Urine Protein Negative mg/dL (NEG-TRACE) Urine Glucose (UA) Negative mg/dL (NEG) Urine Ketones (Stick) Negative mg/dL (NEG) Urine Blood Negative (NEG) Urine Nitrite Negative (NEG) Urine Bilirubin Negative (NEG) Urine Urobilinogen Dipstick 0.2 mg/dL (0.2 mg/dL) Urine Leukocyte Esterase Negative (NEG) Urine RBC 1-2 /HPF (0-2) Urine WBC Occ /HPF (0-4) Urine Squamous Epithelial Cells Occ /LPF Urine Bacteria 0 /HPF (0-FEW) Urine Mucus Slight /LPF Sodium Level 141 mmol/L (136-145) 141 mmol/L (136-145) Potassium Level 4.2 mmol/L (3.5-5.1) 4.1 mmol/L (3.5-5.1) Chloride Level 106 mmol/L (98-107) 104 mmol/L (98-107) Carbon Dioxide Level 25 mmol/L (21-32) 27 mmol/L (21-32) Anion Gap 10 (6-14) 10 (6-14) Blood Urea Nitrogen 19 mg/dL (8-26) 14 mg/dL (8-26) Creatinine 1.0 mg/dL (0.7-1.3) 1.0 mg/dL (0.7-1.3) Estimated GFR (Cockcroft-Gault) 77.6 77.6 Glucose Level 104 mg/dL (70-99) 87 mg/dL (70-99) Calcium Level 8.7 mg/dL (8.5-10.1) 8.6 mg/dL (8.5-10.1) Total Bilirubin 0.3 mg/dL (0.2-1.0) 0.3 mg/dL (0.2-1.0) Direct Bilirubin 0.1 mg/dL (0.0-0.2) Aspartate Amino Transf (AST/SGOT) 21 U/L (15-37) 17 U/L (15-37) Alanine Aminotransferase (ALT/SGPT) 24 U/L (16-63) 19 U/L (16-63) Alkaline Phosphatase 96 U/L (46-116) 79 U/L (46-116) Troponin I Quantitative < 0.017 ng/mL (0.000-0.055) < 0.017 ng/mL (0.000-0.055) < 0.017 ng/mL (0.000-0.055) OY-Tmw-W-Type Natriuretic Peptide 12 pg/mL (0-124) Total Protein 6.8 g/dL (6.4-8.2) 5.9 g/dL (6.4-8.2) Albumin 4.4 g/dL (3.4-5.0) 3.6 g/dL (3.4-5.0) Lipase 342 U/L (73-393) Urine Opiates Screen Neg (NEG) Urine Methadone Screen Neg (NEG) Urine Barbiturates Neg (NEG) Urine Phencyclidine Screen Neg (NEG) Urine Amphetamine/Methamphetamine Neg (NEG) Urine Benzodiazepines Screen Neg (NEG) Urine Cocaine Screen Neg (NEG) Urine Cannabinoids Screen Neg (NEG) Urine Ethyl Alcohol Neg (NEG) BUN/Creatinine Ratio 14 (6-20) Albumin/Globulin Ratio 1.6 (1.0-1.7) Thyroid Stimulating Hormone (TSH) 2.177 uIU/mL (0.358-3.74) Laboratory Tests Test 03/15/17 11:20 03/15/17 17:20 03/15/17 23:10 03/16/17 04:30 White Blood Count 11.1 x10^3/uL (4.0-11.0) 7.6 x10^3/uL (4.0-11.0) Red Blood Count 4.74 x10^6/uL (4.30-5.70) 4.53 x10^6/uL (4.30-5.70) Hemoglobin 14.9 g/dL (13.0-17.5) 14.3 g/dL (13.0-17.5) Hematocrit 43.3 % (39.0-53.0) 40.9 % (39.0-53.0) Mean Corpuscular Volume 91 fL (79-100) 90 fL (79-100) Mean Corpuscular Hemoglobin 32 pg (25-35) 32 pg (25-35) Mean Corpuscular Hemoglobin Concent 35 g/dL (31-37) 35 g/dL (31-37) Red Cell Distribution Width 12.7 % (11.5-14.5) 13.0 % (11.5-14.5) Platelet Count 191 x10^3/uL (140-400) 170 x10^3/uL (140-400) Neutrophils (%) (Auto) 61 % (31-73) 51 % (31-73) Lymphocytes (%) (Auto) 27 % (24-48) 35 % (24-48) Monocytes (%) (Auto) 6 % (0-9) 8 % (0-9) Eosinophils (%) (Auto) 5 % (0-3) 6 % (0-3) Basophils (%) (Auto) 1 % (0-3) 0 % (0-3) Neutrophils # (Auto) 6.8 x10^3uL (1.8-7.7) 3.9 x10^3uL (1.8-7.7) Lymphocytes # (Auto) 3.0 x10^3/uL (1.0-4.8) 2.7 x10^3/uL (1.0-4.8) Monocytes # (Auto) 0.7 x10^3/uL (0.0-1.1) 0.6 x10^3/uL (0.0-1.1) Eosinophils # (Auto) 0.5 x10^3/uL (0.0-0.7) 0.4 x10^3/uL (0.0-0.7) Basophils # (Auto) 0.1 x10^3/uL (0.0-0.2) 0.0 x10^3/uL (0.0-0.2) Prothrombin Time 13.0 SEC (11.7-14.0) Prothromb Time International Ratio 1.0 (0.8-1.1) Activated Partial Thromboplast Time 30 SEC (24-38) Urine Collection Type Void Urine Color Yellow Urine Clarity Clear Urine pH 6.0 Urine Specific [place] 1.015 Urine Protein Negative mg/dL (NEG-TRACE) Urine Glucose (UA) Negative mg/dL (NEG) Urine Ketones (Stick) Negative mg/dL (NEG) Urine Blood Negative (NEG) Urine Nitrite Negative (NEG) Urine Bilirubin Negative (NEG) Urine Urobilinogen Dipstick 0.2 mg/dL (0.2 mg/dL) Urine Leukocyte Esterase Negative (NEG) Urine RBC 1-2 /HPF (0-2) Urine WBC Occ /HPF (0-4) Urine Squamous Epithelial Cells Occ /LPF Urine Bacteria 0 /HPF (0-FEW) Urine Mucus Slight /LPF Sodium Level 141 mmol/L (136-145) 141 mmol/L (136-145) Potassium Level 4.2 mmol/L (3.5-5.1) 4.1 mmol/L (3.5-5.1) Chloride Level 106 mmol/L (98-107) 104 mmol/L (98-107) Carbon Dioxide Level 25 mmol/L (21-32) 27 mmol/L (21-32) Anion Gap 10 (6-14) 10 (6-14) Blood Urea Nitrogen 19 mg/dL (8-26) 14 mg/dL (8-26) Creatinine 1.0 mg/dL (0.7-1.3) 1.0 mg/dL (0.7-1.3) Estimated GFR (Cockcroft-Gault) 77.6 77.6 Glucose Level 104 mg/dL (70-99) 87 mg/dL (70-99) Calcium Level 8.7 mg/dL (8.5-10.1) 8.6 mg/dL (8.5-10.1) Total Bilirubin 0.3 mg/dL (0.2-1.0) 0.3 mg/dL (0.2-1.0) Direct Bilirubin 0.1 mg/dL (0.0-0.2) Aspartate Amino Transf (AST/SGOT) 21 U/L (15-37) 17 U/L (15-37) Alanine Aminotransferase (ALT/SGPT) 24 U/L (16-63) 19 U/L (16-63) Alkaline Phosphatase 96 U/L (46-116) 79 U/L (46-116) Troponin I Quantitative < 0.017 ng/mL (0.000-0.055) < 0.017 ng/mL (0.000-0.055) < 0.017 ng/mL (0.000-0.055) SB-Mmi-H-Type Natriuretic Peptide 12 pg/mL (0-124) Total Protein 6.8 g/dL (6.4-8.2) 5.9 g/dL (6.4-8.2) Albumin 4.4 g/dL (3.4-5.0) 3.6 g/dL (3.4-5.0) Lipase 342 U/L (73-393) Urine Opiates Screen Neg (NEG) Urine Methadone Screen Neg (NEG) Urine Barbiturates Neg (NEG) Urine Phencyclidine Screen Neg (NEG) Urine Amphetamine/Methamphetamine Neg (NEG) Urine Benzodiazepines Screen Neg (NEG) Urine Cocaine Screen Neg (NEG) Urine Cannabinoids Screen Neg (NEG) Urine Ethyl Alcohol Neg (NEG) BUN/Creatinine Ratio 14 (6-20) Albumin/Globulin Ratio 1.6 (1.0-1.7) Thyroid Stimulating Hormone (TSH) 2.177 uIU/mL (0.358-3.74) Medications Current Medications Nitroglycerin (Nitrostat) 0.4 mg PRN Q5MIN PRN SL CP RATING > 1/10 Last administered on 03/15/17 11:27; Start 03/15/17 at 11:00; Stop 03/16/17 at 10:59 Fentanyl Citrate (Fentanyl 2ml Vial) 25 mcg PRN Q15MIN PRN IV PAIN GREATER THAN 3/10 Last administered on 03/15/17 13:28; Start 03/15/17 at 11:00; Stop at 10:59 Ondansetron HCl (Zofran) 4 mg PRN Q8HRS PRN IV NAUSEA/VOMITING; Start 03/15/17 at 12:45; Stop 03/16/17 at 12:44 Fentanyl Citrate (Fentanyl 2ml Vial) 50 mcg PRN Q2HR PRN IV PAIN; Start at 12:45; Stop 03/16/17 at 12:44 Acetaminophen (Tylenol) 650 mg PRN Q4HRS PRN PO FEVER; Start 03/15/17 at 12:45 ; Stop 03/16/17 at 12:44 Nitroglycerin (Nitrostat) 0.4 mg PRN Q5MIN PRN SL CHEST PAIN; Start 03/15/17 at 12:45; Stop 03/16/17 at 12:44 Sodium Chloride 1,000 ml @ 80 mls/hr [id number] IV Last administered on 13:23; Start 03/15/17 at 13:15 Iohexol (Omnipaque 350 Mg/ml) 100 ml STK-MED ONCE .ROUTE ; Start 03/15/17 at 13: 59; Stop 03/15/17 at 14:00; Status DC Heparin Sodium/ Sodium Chloride 500 ml @ As Directed STK-MED ONCE .ROUTE ; Start 03/15/17 at 13:59; Stop 03/15/17 at 14:00; Status DC Lidocaine HCl 20 ml STK-MED ONCE .ROUTE ; Start 03/15/17 at 13:59; Stop at 14:00; Status DC Fentanyl Citrate (Fentanyl 2ml Vial) 100 mcg STK-MED ONCE .ROUTE ; Start at 14:27; Stop 03/15/17 at 14:28; Status DC Midazolam HCl (Versed) 2 mg STK-MED ONCE .ROUTE ; Start 03/15/17 at 14:28; Stop 03/15/17 at 14:29; Status DC Heparin Sodium/ Sodium Chloride 1,000 unit 1X ONCE IART Last administered on 14:53; Start 03/15/17 at 14:45; Stop 03/15/17 at 14:46; Status DC Midazolam HCl (Versed) 2 mg 1X ONCE IV Last administered on 03/15/17 14:54; Start 03/15/17 at 14:45; Stop 03/15/17 at 14:46; Status DC Fentanyl Citrate (Fentanyl 2ml Vial) 100 mcg 1X ONCE IV Last administered on 14:54; Start 03/15/17 at 14:45; Stop 03/15/17 at 14:46; Status DC Iohexol (Omnipaque 350 Mg/ml) 100 ml 1X ONCE IART Last administered on 14:53; Start 03/15/17 at 14:45; Stop 03/15/17 at 14:46; Status DC Lidocaine HCl 20 ml 1X ONCE IJ Last administered on 03/15/17 14:53; Start 06/22 at 14:45; Stop 03/15/17 at 14:46; Status DC Iohexol (Omnipaque 350 Mg/ml) 100 ml STK-MED ONCE .ROUTE ; Start 03/15/17 at 14: 36; Stop 03/15/17 at 14:37; Status DC Info (Do NOT chart on this entry -- for MONITORING) 1 each PRN DAILY PRN MC SEE COMMENTS; Start 03/15/17 at 15:00; Stop 03/17/17 at 14:59 Nicotine (Nicoderm Cq 21mg) 1 patch PRN DAILY PRN TD SMOKING CESSATION Last administered on 03/15/17 20:59; Start 03/15/17 at 18:45 Aspirin (Dung Aspirin) 325 mg DAILYWBKFT PO ; Start 03/16/17 at 08:00 Vitamin D (Vitamin D3) 1,000 unit DAILY PO ; Start 03/16/17 at 09:00 Tamsulosin HCl (Flomax) 0.4 mg DAILY PO ; Start 03/16/17 at 09:00 Lisinopril (Prinivil) 20 mg DAILY PO ; Start 03/16/17 at 09:00 Multivitamins (Thera M Plus) 1 tab DAILY PO ; Start 03/16/17 at 09:00 Famotidine (Pepcid) 20 mg BID PO Last administered on 03/15/17 20:49; Start at 21:00 Multi-Ingredient Mouthwash/Gargle (Gi Cocktail Single Dose) 15 ml PRN Q4HRS PRN SWSW CHEST PAIN Last administered on 03/15/17 23:52; Start 03/15/17 at 19: 15 Active Scripts Active Reported Ranitidine Hcl 150 Mg Tablet 1 Tab PO BID Lisinopril-Hctz 20-25 Mg Tab (Lisinopril/Hydrochlorothiazide) 1 Each Tablet 1 Tab PO DAILY Tamsulosin Hcl 0.4 Mg Cap.er.24h 1 Cap PO DAILY Aspirin 325 Mg Tablet 1 Tab PO DAILY Centrum Silver Tablet (Multivits-Min/Fa/Lycopene/Lut) 1 Each Tablet 1 Each PO DAILY Vitamin D3 (Cholecalciferol (Vitamin D3)) 1,000 Unit Tablet 1 Tab PO DAILY Vitals/I & O Vital Sign - Last 24 Hours 03/15/17 03/15/17 03/15/17 03/15/17 10:51 11:27 12:04 12:08 Temp 98.4 98.4 Pulse 92 75 96 Resp 20 26 21 B/P (MAP) 133/83 (100) 111/67 110/76 (87) Pulse Ox 96 97 96 O2 Delivery Room Air Room Air Room Air 03/15/17 03/15/17 03/15/17 03/15/17 12:56 13:28 13:30 14:02 Pulse 83 73 62 Resp 27 17 30 21 B/P (MAP) 93/65 (74) 98/65 (76) 112/62 (79) Pulse Ox 96 98 97 96 O2 Delivery Room Air Room Air 03/15/17 03/15/17 03/15/17 03/15/17 14:03 14:46 14:54 15:13 Pulse 68 54 Resp 32 16 16 B/P (MAP) 105/65 (78) Pulse Ox 97 96 98 O2 Delivery Room Air 03/15/17 03/15/17 03/15/17 03/15/17 15:15 15:28 15:37 15:43 Temp 97.4 97.4 Pulse 60 58 62 Resp 20 B/P (MAP) 105/65 (78) 109/69 (82) 92/44 (60) Pulse Ox 98 98 O2 Delivery Room Air Room Air 03/15/17 03/15/17 03/15/17 03/15/17 15:58 16:13 16:43 17:13 Pulse 71 64 74 58 B/P (MAP) 101/65 (77) 108/72 (84) 94/64 (74) 102/66 (78) 03/15/17 03/15/17 03/15/17 03/15/17 19:15 19:25 20:15 21:15 Temp 97.9 97.9 Pulse 83 70 64 Resp 18 B/P (MAP) 108/66 (80) 98/56 (70) 109/66 (80) Pulse Ox 97 O2 Delivery Room Air Room Air 03/15/17 03/16/17 03/16/17 23:00 02:50 07:45 Temp 98.5 97.6 97.5 98.5 97.6 97.5 Pulse 61 59 68 Resp 18 18 18 B/P (MAP) 115/63 (80) 104/65 (78) 108/68 (81) Pulse Ox 98 97 98 O2 Delivery Room Air Room Air Room Air Intake and Output 03/15/17 03/15/17 03/16/17 15:00 23:00 07:00 Intake Total 120 ml 600 ml Output Total 100 ml Balance -100 ml 120 ml 600 ml MENA MCINTOSH MD Mar 16, 2017 09:43
--- NOTE | 2017-03-16 09:45 | PDOC2 ---
GI CONSULT Reason For Consult: Chest discomfort, GERD HPI: HPI: 56 y/o male admitted w/ chest pain radiating to his neck/teeth and h/o CAD, had cardiac cath that was unrevealing. Had some nausea as well. Additional h/o acid reflux for >20 years, currently on ranitidine BID (has taken this x 5 years ). Tried Prilosec briefly in the past, ineffective, also has used Maalox and Pepcid previously. Perhaps had EGD years ago. Usually only eats 1 meal daily; if he eats more than this, has significant reflux. Also, if he lays down fewer than 4 hours after eating, will also have significant reflux/choking. Note takes Meloxicam QD + ASA 325mg QD. No dysphagia, diarrhea, constipation, hematemesis, hematochezia, melena. Did have some lower abd discomfort yesterday that is resolved. No previous colonoscopy. Some relief from GI cocktail. Kept NPO this morning for possible EGD. PMH: PMH: CAD w/ stent, HTN, COPD, tonsillectomy, thymectomy, bilateral shoulder arthroscopies, left knee arthroscopy FH: Family History: Other (mother possibly had "ulcers") Social History: Smoke: 1 pack per day ALCOHOL: none Drugs: None ROS: GEN: Denies fevers, chills, sweats HEENT: Denies blurred vision, sore throat CV: +chest pain RESP: Denies shortness of air, cough GI: Per HPI : Denies hematuria, dysuria ENDO: Denies weight changes NEURO: Denies confusion, dizziness MSK: +joint pains SKIN: Denies jaundice, pruritus Vitals: Vitals: Vital Signs Date Time Temp Pulse Resp B/P (MAP) Pulse Ox O2 Delivery O2 Flow Rate FiO2 03/16/17 08:00 Room Air 03/16/17 07:45 97.5 68 18 108/68 (81) 98 97.5 Labs: Labs: Laboratory Tests Test 03/15/17 11:20 03/15/17 17:20 03/15/17 23:10 03/16/17 04:30 White Blood Count 11.1 x10^3/uL (4.0-11.0) 7.6 x10^3/uL (4.0-11.0) Red Blood Count 4.74 x10^6/uL (4.30-5.70) 4.53 x10^6/uL (4.30-5.70) Hemoglobin 14.9 g/dL (13.0-17.5) 14.3 g/dL (13.0-17.5) Hematocrit 43.3 % (39.0-53.0) 40.9 % (39.0-53.0) Mean Corpuscular Volume 91 fL (79-100) 90 fL (79-100) Mean Corpuscular Hemoglobin 32 pg (25-35) 32 pg (25-35) Mean Corpuscular Hemoglobin Concent 35 g/dL (31-37) 35 g/dL (31-37) Red Cell Distribution Width 12.7 % (11.5-14.5) 13.0 % (11.5-14.5) Platelet Count 191 x10^3/uL (140-400) 170 x10^3/uL (140-400) Neutrophils (%) (Auto) 61 % (31-73) 51 % (31-73) Lymphocytes (%) (Auto) 27 % (24-48) 35 % (24-48) Monocytes (%) (Auto) 6 % (0-9) 8 % (0-9) Eosinophils (%) (Auto) 5 % (0-3) 6 % (0-3) Basophils (%) (Auto) 1 % (0-3) 0 % (0-3) Neutrophils # (Auto) 6.8 x10^3uL (1.8-7.7) 3.9 x10^3uL (1.8-7.7) Lymphocytes # (Auto) 3.0 x10^3/uL (1.0-4.8) 2.7 x10^3/uL (1.0-4.8) Monocytes # (Auto) 0.7 x10^3/uL (0.0-1.1) 0.6 x10^3/uL (0.0-1.1) Eosinophils # (Auto) 0.5 x10^3/uL (0.0-0.7) 0.4 x10^3/uL (0.0-0.7) Basophils # (Auto) 0.1 x10^3/uL (0.0-0.2) 0.0 x10^3/uL (0.0-0.2) Prothrombin Time 13.0 SEC (11.7-14.0) Prothromb Time International Ratio 1.0 (0.8-1.1) Activated Partial Thromboplast Time 30 SEC (24-38) Urine Collection Type Void Urine Color Yellow Urine Clarity Clear Urine pH 6.0 Urine Specific [place] 1.015 Urine Protein Negative mg/dL (NEG-TRACE) Urine Glucose (UA) Negative mg/dL (NEG) Urine Ketones (Stick) Negative mg/dL (NEG) Urine Blood Negative (NEG) Urine Nitrite Negative (NEG) Urine Bilirubin Negative (NEG) Urine Urobilinogen Dipstick 0.2 mg/dL (0.2 mg/dL) Urine Leukocyte Esterase Negative (NEG) Urine RBC 1-2 /HPF (0-2) Urine WBC Occ /HPF (0-4) Urine Squamous Epithelial Cells Occ /LPF Urine Bacteria 0 /HPF (0-FEW) Urine Mucus Slight /LPF Sodium Level 141 mmol/L (136-145) 141 mmol/L (136-145) Potassium Level 4.2 mmol/L (3.5-5.1) 4.1 mmol/L (3.5-5.1) Chloride Level 106 mmol/L (98-107) 104 mmol/L (98-107) Carbon Dioxide Level 25 mmol/L (21-32) 27 mmol/L (21-32) Anion Gap 10 (6-14) 10 (6-14) Blood Urea Nitrogen 19 mg/dL (8-26) 14 mg/dL (8-26) Creatinine 1.0 mg/dL (0.7-1.3) 1.0 mg/dL (0.7-1.3) Estimated GFR (Cockcroft-Gault) 77.6 77.6 Glucose Level 104 mg/dL (70-99) 87 mg/dL (70-99) Calcium Level 8.7 mg/dL (8.5-10.1) 8.6 mg/dL (8.5-10.1) Total Bilirubin 0.3 mg/dL (0.2-1.0) 0.3 mg/dL (0.2-1.0) Direct Bilirubin 0.1 mg/dL (0.0-0.2) Aspartate Amino Transf (AST/SGOT) 21 U/L (15-37) 17 U/L (15-37) Alanine Aminotransferase (ALT/SGPT) 24 U/L (16-63) 19 U/L (16-63) Alkaline Phosphatase 96 U/L (46-116) 79 U/L (46-116) Troponin I Quantitative < 0.017 ng/mL (0.000-0.055) < 0.017 ng/mL (0.000-0.055) < 0.017 ng/mL (0.000-0.055) WM-Bjk-W-Type Natriuretic Peptide 12 pg/mL (0-124) Total Protein 6.8 g/dL (6.4-8.2) 5.9 g/dL (6.4-8.2) Albumin 4.4 g/dL (3.4-5.0) 3.6 g/dL (3.4-5.0) Lipase 342 U/L (73-393) Urine Opiates Screen Neg (NEG) Urine Methadone Screen Neg (NEG) Urine Barbiturates Neg (NEG) Urine Phencyclidine Screen Neg (NEG) Urine Amphetamine/Methamphetamine Neg (NEG) Urine Benzodiazepines Screen Neg (NEG) Urine Cocaine Screen Neg (NEG) Urine Cannabinoids Screen Neg (NEG) Urine Ethyl Alcohol Neg (NEG) BUN/Creatinine Ratio 14 (6-20) Albumin/Globulin Ratio 1.6 (1.0-1.7) Thyroid Stimulating Hormone (TSH) 2.177 uIU/mL (0.358-3.74) Allergies: Coded Allergies: codeine (Verified Allergy, Intermediate, 03/15/17) Medications: Current Medications Medications (Trade) Dose Ordered Sig/Eddie Route PRN Reason Start Time Stop Time Status Last Admin Dose Admin Nitroglycerin (Nitrostat) 0.4 mg PRN Q5MIN PRN SL CP RATING > 1/10 03/15/17 11:00 03/16/17 10:59 03/15/17 11:27 Fentanyl Citrate (Fentanyl 2ml Vial) 25 mcg PRN Q15MIN PRN IV PAIN GREATER THAN 3/10 03/15/17 11:00 03/16/17 10:59 03/15/17 13:28 Sodium Chloride 1,000 ml @ 80 mls/hr [id number] IV 03/15/17 13:15 03/15/17 13:23 Heparin Sodium/ Sodium Chloride 1,000 unit 1X ONCE IART 03/15/17 14:45 03/15/17 14:46 DC 03/15/17 14:53 Midazolam HCl (Versed) 2 mg 1X ONCE IV 03/15/17 14:45 03/15/17 14:46 DC 03/15/17 14:54 Fentanyl Citrate (Fentanyl 2ml Vial) 100 mcg 1X ONCE IV 03/15/17 14:45 03/15/17 14:46 DC 03/15/17 14:54 Iohexol (Omnipaque 350 Mg/ml) 100 ml 1X ONCE IART 03/15/17 14:45 03/15/17 14:46 DC 03/15/17 14:53 Lidocaine HCl 20 ml 1X ONCE IJ 03/15/17 14:45 03/15/17 14:46 DC 03/15/17 14:53 Nicotine (Nicoderm Cq 21mg) 1 patch PRN DAILY PRN TD SMOKING CESSATION 03/15/17 18:45 03/15/17 20:59 Famotidine (Pepcid) 20 mg BID PO 03/15/17 21:00 03/15/17 20:49 Multi-Ingredient Mouthwash/Gargle (Gi Cocktail Single Dose) 15 ml PRN Q4HRS PRN SWSW CHEST PAIN 03/15/17 19:15 03/15/17 23:52 Imaging: Imaging: CXR Impression: No evidence of acute cardiopulmonary process. Cardiac Cath Conclusion This pt does not have any significant obstructive coronary artery disease and the stent is open. Consider GI work up. PE: GEN: NAD HEENT: Atraumatic, PERRLA LUNGS: CTAB HEART: RRR, no murmurs ABD: NABS, S/ND/NT, no masses EXTREMITY: No edema SKIN: No rashes, no jaundice NEURO/PSYCH: A & O 3 A/P: A/P: Non-cardiac chest pain Acid reflux -20 year history -symptoms significant, limits diet and lifestyle -currently H2 lori BID NSAID use CRC screen -no previous colonoscopy -- Outpt EGD recommended, along w/ screening colonoscopy. Start PPI, ADAT. DEANNA JARAMILLO Mar 16, 2017 09:45
[2017-03-16] MEDS: FAMOTIDINE 20 MG TABLET. PO SCH (10:14)
[2017-03-16] MEDS ORDERED: IBUPROFEN 400 MG TABLET. PO PRN (11:00)
[2017-03-16 11:20] VITALS: BP 121/86
[2017-03-16] MEDS ORDERED: PANT40TA5 PO (12:58)
[2017-03-16] MEDS ORDERED: BENZONATATE 100 MG CAPSULE. PO SCH (14:00)
[2017-03-16] MEDS ORDERED: PANTOPRAZOLE 40 MG TABLET.DR. PO SCH (16:30)
--- NOTE | 2017-03-22 17:00 | PDOC3 ---
DATE OF ADMISSION Date of Admission 03/15/17 DATE OF DISCHARGE Discharge Date 03/16/17 PROBLEM LIST Problems: (1) Chest pain CONSULTS Consults Dr. Lemon MEDICATIONS Medications Medications reviewed and reconciled for discharge. PAST MEDICAL HISTORY PMH Past Medical History: CAD, High Cholesterol, Heart Disease, Hypertension, Other Additional Past Medical Histor: BPH Past Surgical History: Tonsillectomy, Other Additional Past Surgical Histo: "removal of thymus", cardiac cath with stent, knee and shoulder surgery Additional Information: 1 ppd x 50 years Alcohol Use: None Drug Use: None SOCIAL HISTORY 1 ppd x 50 years Alcohol Use: None Drug Use: None ALLERGIES Allergies Allergies Coded Allergies Type Severity Reaction Last Updated Verified codeine Allergy Intermediate 03/15/17 Yes MEDICATIONS Meds Medications reviewed. REVIEW OF SYSTEMS ROS A 14 point ROS was completed with the following noted as positive: Other systems reviewed and negative. PHYSICAL EXAM Objective Alert and oriented x 3 Card RRR lungs clear abd soft + BS ext w/o edema Neuro intact [facility] NOTE [facility] Note Patient is a 56 year old man, history of hypertension, hypercholesterolemia, BPH, CAD status post stent placement in 2005, who smokes a pack of cigarettes a day for the past 50 years, who presents the emergency department with a complaint of chest tightness radiating to his jaw that began this morning. Associated with nausea, no shortness of breath, is a tightness across the left and central portion of his chest. Patient states that he woke up and was feeling "off". He states that he was washing his motorcycle, and began experiencing some chest tightness, states he was basically "ignoring it", however later in the morning around 10:00, it became worse, which prompted him to come to the ED for evaluation. He states that he was evaluated less than a year ago for similar symptoms, at that time he was told that he might need a catheterization, but it was not performed. He states he has not had a catheterization performed since his stent was placed. He has a family history of heart disease in his mother, and in his father, and a personal history of placement of 1 stent 11 years ago as stated. He states that he does take a full dose aspirin daily, has been taking all his medications as directed by his primary care provider Dr. Chavez. Denies any vomiting, states he was feeling nauseous with chest pain, no belching, no weakness, numbness or tingling, no back pain, no abdominal pain, no headache, no injuries, no swelling of the extremities, no rashes, no recent travel or surgery, no history of DVT or PE in himself or family members.Patient underwent cardiac cath without complication no new finding or significant CAD was seen. Patient returned to baseline and was d/c'd to home. recc to F/U with PCP 1-2 weeks FOLLOW UP F/U 1-2 weeks DISPOSITION Dispo home with self care Problem Qualifiers (1) Chest pain: Chest pain type: precordial pain Qualified Codes: R07.2 - Precordial pain SIERRA CHAVEZ MD Mar 22, 2017 17:00
== END 2017-03-16 13:49 | disposition home or self-care (01) ==
LOC: ER 10:39 → INTOOBSV 11:50 → ED HOLD 11:50 → 2 SOUTH 15:04
PROVIDERS: ADMIT Family Medicine; ATTEND Family Medicine
DX: I25.119 Atherosclerotic heart disease of native coronary artery with unspecified angina pectoris (principal); E78.00 Pure hypercholesterolemia, unspecified; I10 Essential (primary) hypertension; E78.5 Hyperlipidemia, unspecified; N40.0 Benign prostatic hyperplasia without lower urinary tract symptoms; K21.9 Gastro-esophageal reflux disease without esophagitis; I25.2 Old myocardial infarction; J44.9 Chronic obstructive pulmonary disease, unspecified; F17.210 Nicotine dependence, cigarettes, uncomplicated; Z95.5 Presence of coronary angioplasty implant and graft; Z79.899 Other long term (current) drug therapy; Z82.49 Family history of ischemic heart disease and other diseases of the circulatory system
CPT/HCPCS: 36415; 71010; 80048; 80053; 80076; 81001; 83690; 83880; 84443; 84484; 85027; 85610; 85730; 93005; 93458; 96374; 96375; 96376; 99285; A6539; C1769; C1771; C1892; G0269; G0378; G0481; J1644; J2001; J2250; J3010; Q9967; 99152; 99153; G0379

== ENCOUNTER → 2017-04-09 | Day surgery (SDC) | payer BC ==
[~2017-04-09] MED LIST: ASPI325T8 PO; CHOL10003 PO; IV RINGERS,LACTATED 1000ML 1,000 ML IV SCH; LIDOCAINE 1% 1 ML SYRINGE. ID PRN; LIDOCAINE 2% PF Vial for OR 5 ML VIAL. ONE; LISI1TAB7 PO; MELO15TA23 PO; MORPHINE SULFATE 2 MG/ML DISP.SYRIN. IV PRN; MULT-658 PO; ONDANSETRON PF 4 MG/2 ML VIAL. IV PRN; PANT40TA5 PO; PROCHLORPERAZINE 10 MG/2 ML VIAL. IV PRN; PROPOFOL 40 ML IV ONE; RANI150T2 PO; TAMS0.4C2 PO; fentaNYL PF VIAL 100 MCG/2 ML VIAL IV PRN
[2017-04-09 10:33] VITALS: BP 115/77
--- NOTE | 2017-04-12 13:52 | PATHOLOGY ---
PATHOLOGY REPORT * * * * * * * * FINAL DIAGNOSIS: A. Esophageal biopsies, distal esophagus: - Segments of hyperplastic squamous esophageal mucosa consistent with reflux esophagitis. B. Colorectal biopsies, rectal polyp: - Hyperplastic polyp. (JPM:donna; 04/12/2017) COMMENT: Sections of the distal esophageal biopsy reveal segments of focally tangentially oriented, hyperplastic squamous esophageal mucosa. The findings are consistent with reflux esophagitis. There is no evidence of Bosch's change, dysplasia or malignancy. Sections of the rectal biopsy reveal a hyperplastic polyp. There are no adenomatous changes or evidence of malignancy. (JPM:donna; 04/12/2017) REPORT ELECTRONICALLY SIGNED BY: Homer Roa M.D. DATE/TIME: 04/12/2017 13:51 * * * * * * * * GROSS PATHOLOGY: A. Received in formalin labeled "Jaxson Dumont, distal esophageal biopsies," are multiple segments of klein soft tissue measuring from 0.1 up to 0.3 cm in maximum dimension. The specimen is submitted entirely in cassette A1. B. Received in formalin labeled "Jaxson Dumont, rectal polyp," are two segments of klein soft tissue measuring 0.2 and 0.3 cm in maximum dimension. The specimen is submitted entirely in cassette B1. (JPM; 04/09/17) INITIAL CPT CODE(S): A; 11369 B; 23000 Professional services performed [place] [address] Technical services performed by [facility] at [address] [place] [address], [facility] [address] [address]. SPECIMEN(S) RECEIVED: A.Distal esophagus biopsy B.Rectal polyp CLINICAL HISTORY: Abdominal pain PATIENT: JAXSON DUMONT /AGE: 11 1960 (Age: 56) PATIENT #: [id number] ALT CASE #: SPECIMEN COLLECTION DATE: 04/09/2017 SPECIMEN RECEIVED DATE: 04/09/2017 [facility] - [address] [place] [address] - PHONE: [phone] * * * END OF REPORT * * *
== END | disposition home or self-care (01) ==
LOC: ENDOS 07:47
PROVIDERS: ATTEND Internal Medicine Gastroenterology
DX: Z12.11 Encounter for screening for malignant neoplasm of colon (principal); K62.1 Rectal polyp; K64.0 First degree hemorrhoids; K21.0 Gastro-esophageal reflux disease with esophagitis; E78.00 Pure hypercholesterolemia, unspecified; I25.10 Atherosclerotic heart disease of native coronary artery without angina pectoris; I10 Essential (primary) hypertension; K21.9 Gastro-esophageal reflux disease without esophagitis; M19.90 Unspecified osteoarthritis, unspecified site; Z87.39 Personal history of other diseases of the musculoskeletal system and connective tissue; Z86.39 Personal history of other endocrine, nutritional and metabolic disease; Z72.0 Tobacco use; Z88.6 Allergy status to analgesic agent
CPT/HCPCS: 43239; 45380; 88305; J2001; J2704

== ENCOUNTER → 2017-04-23 | Outpatient (CLI) | payer BC ==
[2017-04-09 10:33] VITALS: BP 115/77
[~2017-04-23] VITALS: Ht 170.2 cm; Wt 77.1 kg
[~2017-04-23] MED LIST changes: -IV RINGERS,LACTATED 1000ML 1,000 ML IV SCH; -LIDOCAINE 1% 1 ML SYRINGE. ID PRN; -LIDOCAINE 2% PF Vial for OR 5 ML VIAL. ONE; -MORPHINE SULFATE 2 MG/ML DISP.SYRIN. IV PRN; -ONDANSETRON PF 4 MG/2 ML VIAL. IV PRN; -PROCHLORPERAZINE 10 MG/2 ML VIAL. IV PRN; -PROPOFOL 40 ML IV ONE; +SINCALIDE 1.54 MCG in IV NORMAL SALINE 50ML 30 ML IV ONE; -fentaNYL PF VIAL 100 MCG/2 ML VIAL IV PRN
--- NOTE | 2017-04-23 08:56 | RAD ---
Limited ultrasound abdomen 04/23/2017 at 0828 hours Indication: Epigastric pain Comparison: None available Technique: Sonographic imaging of the abdomen was performed utilizing grayscale and color Doppler. Findings: The liver is homogenous in echotexture without evidence for a focal mass lesion. Liver measures 13.9 cm in length, within normal limits. There is hepatopedal flow in the portal venous system. There is no intrahepatic or extra hepatic biliary ductal dilatation. The common bile duct measures 3 mm, within normal limits. Gallbladder is normal without evidence for gallstones, gallbladder wall thickening or pericholecystic fluid. No free fluid is identified in the right upper quadrant. IVC is normal. Right kidney measures 11.2 x 4.4 x 4.2 cm. No renal calculi, hydronephrosis or contour deforming renal mass. Pancreas is poorly visualized and obscured by bowel gas. Impression: 1. No evidence for cholelithiasis. 2. No significant sonographic abnormality identified.
--- NOTE | 2017-04-23 12:29 | RAD ---
Radionuclide hepatobiliary scan with gallbladder ejection fraction, 04/23/2017: History: Abdominal pain Following IV injection of 5.5 mCi of technetium 99m Choletec there was prompt uptake of the radionuclide from the blood stream by the liver. Activity is present in the gallbladder and bile ducts at 20 minutes. Small bowel activity develops at 30 minutes. Additional images the gallbladder was performed following IV injection of 1.5 mcg of cholecystokinin. The gallbladder ejection fraction was calculated at 25%. 30-50% is considered to be the borderline low range. IMPRESSION: 1. No evidence of cystic duct or common bile duct obstruction. 2. Decreased gallbladder ejection fraction of 25%.
== END | disposition home or self-care (01) ==
LOC: US 07:57
PROVIDERS: ATTEND Internal Medicine Gastroenterology
DX: R10.13 Epigastric pain (principal)
CPT/HCPCS: 76705; 78226; 96374; 96375; A9537; J2805

== ENCOUNTER → 2017-05-07 | Outpatient (CLI) | payer BC ==
[2017-04-09 10:33] VITALS: BP 115/77
[~2017-05-07] MED LIST changes: +IOHEXOL 240 MG/ML 50ML VIAL. PO ONE; +IOHEXOL 300 MG/ML 75 ML VIAL IV ONE; -SINCALIDE 1.54 MCG in IV NORMAL SALINE 50ML 30 ML IV ONE
--- NOTE | 2017-05-07 09:52 | RAD ---
Exam performed: CT scan of the abdomen and pelvis with contrast Clinical Indication:Lower abdominal pain for 2 months Date of Service:05/07/17 comparison: None available Technique: Contiguous helical acquisitions are obtained from the lung bases to the pelvis during intravenous administration of [75 cc of Omnipaque 300]. In addition oral contrast was also given. Sagittal and coronal reformatted images were obtained and reviewed. CT abdomen findings: The lung bases appear essentially clear. Calcified nodules in the right lung base Visualized heart is normal. The liver, spleen ,gall bladder and pancreas appears unremarkable. Both adrenal glands and bilateral kidneys appear normal with symmetric excretion of contrast via both kidneys. The small bowel loops appear nondilated and unremarkable. There is no retroperitoneal lymphadenopathy or mass lesions. No bowel related inflammatory stranding is noted. No obvious stranding is seen in the pericecal region. CT pelvis findings: The pelvic bowel loops are nondilated and unremarkable. There is scattered stool throughout the colon. Sigmoid diverticulosis. No inflammatory changes. The urinary bladder is partially decompressed and normal . No free or focal fluid collections or pelvic lymphadenopathy Interrogation of bone windows demonstrates no obvious bony abnormality. Sagittal and coronal reformatted images were obtained and reviewed which demonstrate no additional findings. Impression abdomen and pelvis : 1. No acute intra-abdominal or pelvic process is detected. 2. Scattered stool throughout the colon. Correlate clinically for constipation. 3. Sigmoid diverticulosis PQRS Compliance Statement: One or more of the following individualized dose reduction techniques were utilized for this examination: 1. Automated exposure control 2. Adjustment of the mA and/or kV according to patient size 3. Use of iterative reconstruction technique
== END | disposition home or self-care (01) ==
LOC: CT 07:58
PROVIDERS: ATTEND Internal Medicine Gastroenterology
DX: K57.30 Diverticulosis of large intestine without perforation or abscess without bleeding (principal); K59.00 Constipation, unspecified
CPT/HCPCS: 74177; Q9966; Q9967

== ENCOUNTER → 2017-05-21 | Outpatient (CLI) | payer BC ==
[2017-04-09 10:33] VITALS: BP 115/77
[~2017-05-21] MED LIST changes: +CRAN500C6 PO; -IOHEXOL 240 MG/ML 50ML VIAL. PO ONE; -IOHEXOL 300 MG/ML 75 ML VIAL IV ONE; +OXYC-323 PO; +SENN1TAB70 PO
[2017-05-21 14:10] LABS: BASO # 0.1 x10^3/uL (0.0-0.2); BASO % 1 % (0-3); EOS % 4 % (0-3); HEMATOCRIT 41.5 % (39.0-53.0); HEMOGLOBIN 14.2 g/dL (13.0-17.5); LYMPH # 3.3 x10^3/uL (1.0-4.8); LYMPH % 31 % (24-48); MEAN CORPUSCULAR HEMOGLOBIN 32 pg (25-35); MEAN CORPUSCULAR HGB CONC 34 g/dL (31-37); MEAN CORPUSCULAR VOLUME 92 fL (79-100); MONO % 6 % (0-9); NEUT % 58 % (31-73); PLATELET COUNT 221 x10^3/uL (140-400); RED BLOOD COUNT 4.49 x10^6/uL (4.30-5.70); RED CELL DISTRIBUTION WIDTH 13.4 % (11.5-14.5); WHITE BLOOD COUNT 10.8 x10^3/uL (4.0-11.0)
[2017-05-21 14:36] LABS: ALBUMIN 4.3 g/dL (3.4-5.0); CALCIUM 9.4 mg/dL (8.5-10.1); CREATININE 1.1 mg/dL (0.7-1.3); GFR 69.5; POTASSIUM 3.7 mmol/L (3.5-5.1); TOTAL BILIRUBIN 0.4 mg/dL (0.2-1.0)
== END | disposition home or self-care (01) ==
LOC: SURGPAT 13:30
PROVIDERS: ATTEND Surgery
DX: Z01.818 Encounter for other preprocedural examination (principal); Z90.49 Acquired absence of other specified parts of digestive tract
CPT/HCPCS: 36415; 80048; 82040; 82247; 85025

== ENCOUNTER 2017-05-28 08:59 | Day surgery (SDC) | payer BC ==
[~2017-05-28] VITALS: Ht 170.2 cm; Wt 78.9 kg
[~2017-05-28 08:59] MED LIST changes: +HYDROmorphone 2 MG/ML VIAL IV PRN; +IV RINGERS,LACTATED 1000ML 1,000 ML IV SCH; +LIDOCAINE 1% PF 2 ML VIAL. ID PRN; +MORPHINE SULFATE 4 MG/ML DISP.SYRIN. IV PRN; +ONDANSETRON PF 4 MG/2 ML VIAL. IV PRN; -OXYC-323 PO; -SENN1TAB70 PO; +fentaNYL PF VIAL 100 MCG/2 ML VIAL IV PRN
[2017-05-28] MEDS ORDERED: PROPOFOL 20 ML IV ONE (10:08)
[2017-05-28] MEDS ORDERED: LIDOCAINE 2% PF Vial for OR 5 ML VIAL. ONE (10:08)
[2017-05-28] MEDS ORDERED: DEXAMETHASONE SOD PHOS 20 MG/5 ML VIAL. ONE (10:09)
[2017-05-28] MEDS ORDERED: fentaNYL PF VIAL 250 MCG/5 ML VIAL ONE (10:09)
[2017-05-28] MEDS ORDERED: ONDANSETRON PF 4 MG/2 ML VIAL. ONE (10:09)
[2017-05-28] MEDS ORDERED: IOHEXOL 300 MG/ML 50 ML VIAL. ONE (10:11)
[2017-05-28] MEDS ORDERED: SURGICEL HEMOSTAT 4X8 EACH. ONE (10:11)
[2017-05-28] MEDS ORDERED: BUPIVACAINE-EPI 0.5%-1:200000 50 ML VIAL. ONE (10:11)
[2017-05-28] MEDS ORDERED: GLUCAGON,HUMAN RECOMBINANT 1 MG/ML VIAL. ONE (10:11)
[2017-05-28] MEDS ORDERED: NEOSTIGMINE METHYLSULFATE 5 MG/5 ML SYRINGE. ONE (11:18)
[2017-05-28] MEDS ORDERED: GLYCOPYRROLATE 1 MG/5 ML VIAL. ONE (11:18)
--- NOTE | 2017-05-28 11:40 | RAD ---
Intraoperative cholangiogram, 05/28/2017: History: Cholecystectomy 3 spot films from surgery are presented for review. Contrast has been injected into the cystic duct remnant. 13 seconds of fluoroscopy time was utilized. There is good flow of contrast into the duodenum at the ampulla. No filling defect is seen in the common duct to suggest a retained calculus. The visualized intrahepatic ducts are unremarkable. No contrast extravasation is seen. IMPRESSION: No significant abnormality is detected.
--- NOTE | 2017-05-28 11:45 | PDOC ---
BRIEF OPERATIVE NOTE Date: May 28, 2017 Pre-Op Diagnosis biliary dyskinesia Post-Op Diagnosis same Procedure Performed l/s aravind with carlos Surgeon Rodolfo Production Engineer Savannah OLGUIN Anesthesia Type: General Blood Loss 5cc IV Fluid 900cc Specimens Obtained GB Findings supple GB with omental adhesions, normal grams Complications none CHYNA LAMBERT MD May 28, 2017 11:45
--- NOTE | 2017-05-28 11:48 | DISCH ---
DISCHARGE INSTRUCTIONS Condition on Discharge Condition on Discharge: Stable Activity After Discharge Activity Instructions for Disc: Resume previous activity, Activity as tolerated , Avoid exertion Lifting Instructions after Dis: No heavy lifting Driving Instructions after Dis: Do not drive (3-4 days) Diet after Discharge Diet after Discharge: Regular Wound Incision Care Wound/Incision Care: Ice to area for comfort Other wound/incision instructi: charis shower Wednesday Follow-Up Follow up with: Rodolfo next week CHYNA LAMBERT MD May 28, 2017 11:48
[2017-05-28] MEDS ORDERED: fentaNYL PF VIAL 100 MCG/2 ML VIAL ONE (12:11)
[2017-05-28] MEDS ORDERED: PROCHLORPERAZINE 10 MG/2 ML VIAL. ONE (12:12)
[2017-05-28] MEDS: fentaNYL PF VIAL 100 MCG/2 ML VIAL IV PRN ×2 (12:15→12:32)
[2017-05-28] MEDS: PROCHLORPERAZINE 10 MG/2 ML VIAL. IV PRN ×2 (12:16→12:32)
[2017-05-28] MEDS ORDERED: SENN1TAB70 PO (12:56)
[2017-05-28] MEDS ORDERED: OXYC-323 PO (12:56)
[2017-05-28] MEDS ORDERED: oxyCODONE/APAP 5/325 1 TAB TABLET PO PRN (13:00)
[2017-05-28] MEDS ORDERED: KETOROLAC 30 MG/ML INJ. IV PRN (13:00)
[2017-05-28 13:55] VITALS: BP 135/88
--- NOTE | 2017-05-31 11:05 | PATHOLOGY ---
PATHOLOGY REPORT * * * * * * * * FINAL DIAGNOSIS: Gallbladder, "gallbladder and contents": - Chronic cholecystitis. (SHA:donna; 05/31/2017) REPORT ELECTRONICALLY SIGNED BY: Jac Zuniga M.D. DATE/TIME: 05/31/2017 11:05 * * * * * * * * GROSS PATHOLOGY: Received in formalin labeled "Jaxson Dumont, gallbladder sac with contents," is a 5.1 x 1.2 x 1.0 cm, intact gallbladder with yellow red serosal surfaces. Opening the gallbladder reveals dark yellow red, velvety mucosa and an average wall thickness of 0.4 cm. Calculi are not present and no masses are noted grossly. Siphoner sections from the body and fundus are submitted along with the proximal margin in cassette A1. (JPM; 05/28/17) INITIAL CPT CODE(S): A; 20041 Professional services performed [place] [facility] [place] [address] Technical services performed by [facility] at [address] [place] [address]. SPECIMEN(S) RECEIVED: A.Gallbladder sac with contents CLINICAL HISTORY: Biliary dyskinesia PATIENT: JAXSON DUMONT /AGE: 11 1960 (Age: 56) PATIENT #: [id number] ALT CASE #: SPECIMEN COLLECTION DATE: 05/28/2017 SPECIMEN RECEIVED DATE: 05/28/2017 [facility] - [address] [place] [address] - PHONE: [phone] * * * END OF REPORT * * *
--- NOTE | 2017-05-31 14:09 | OP ---
DATE OF SURGERY: 05/28/2017 PREOPERATIVE DIAGNOSIS: Biliary dyskinesia. POSTOPERATIVE DIAGNOSIS: Biliary dyskinesia. PROCEDURE: Laparoscopic cholecystectomy with cholangiogram. SURGEON: Chyna Lambert MD CELLO TEACHER: SHARIF Farmer. ANESTHESIA: General endotracheal. BLOOD LOSS: 5 mL. INTRAVENOUS FLUIDS: 900 mL. INDICATIONS: The patient is a 56-year-old with epigastric and right upper quadrant postprandial pain. He has a low ejection fraction on his PIPIDA scan. He is brought for cholecystectomy. OPERATIVE FINDINGS: The gallbladder was supple with some omental adhesions. Cholangiograms were normal. Visual inspection of the remainder of the abdomen failed to reveal obvious abnormalities. DESCRIPTION OF PROCEDURE: The patient brought to the operating suite, given a general endotracheal anesthetic and the abdomen prepped and draped in usual sterile fashion. An infraumbilical incision was infiltrated with local anesthetic, sharply incised and a 5 mm Visiport used to gain access into the abdominal cavity. Pneumoperitoneum was established. Camera inserted and inspection carried out with results as noted above. With the table in reverse Trendelenburg rolled to the left, the epigastric, midclavicular, and lateral ports were placed under direct vision. The gallbladder was retracted superolaterally and omental adhesions were carefully taken down from the gallbladder using blunt and cautery dissection, taking care to avoid injury to the adjacent bowel. The cystic duct and cystic artery were exposed. The duct was clipped on the gallbladder side. Cholangiograms were made. These were normal. In light of this, the catheter was removed. The cystic duct was clipped and divided, taking care to avoid injury or compromise the common duct. The cystic artery was clipped and divided and the gallbladder freed from the bed with cautery dissection and placed in an EndoCatch bag. Good hemostasis was present. Table returned to level. Gallbladder delivered through the epigastric incision. Epigastric incision closed with interrupted 0 Vicryl suture. Intra-abdominal pressure decreased to 6 cm of water. No bleeding from the epigastric closure or from the midclavicular or lateral port sites after their removal. Abdomen decompressed, camera slowly removed, no bleeding seen. Skin incisions closed with subcuticular 4-0 Monocryl. Steri-Strips and sterile dressings applied. The patient was awakened from his anesthetic and taken to the recovery room in satisfactory condition. CHYNA LAMBERT MD DR: Adri JOB#: [id number] / [id number]
== END 2017-05-28 14:11 | disposition home or self-care (01) ==
LOC: SURG 08:59
PROVIDERS: ATTEND Surgery
DX: K82.8 Other specified diseases of gallbladder (principal); I25.10 Atherosclerotic heart disease of native coronary artery without angina pectoris; E78.00 Pure hypercholesterolemia, unspecified; I10 Essential (primary) hypertension; K21.9 Gastro-esophageal reflux disease without esophagitis; M19.012 Primary osteoarthritis, left shoulder; M19.011 Primary osteoarthritis, right shoulder; M17.0 Bilateral primary osteoarthritis of knee; M19.042 Primary osteoarthritis, left hand; M19.041 Primary osteoarthritis, right hand; Z86.39 Personal history of other endocrine, nutritional and metabolic disease; Z87.39 Personal history of other diseases of the musculoskeletal system and connective tissue; Z72.0 Tobacco use; Z88.6 Allergy status to analgesic agent
CPT/HCPCS: 47563; 74300; J0690; J0780; J1100; J1885; J2405; J2704; J2710; J3010; J3490; J7030; Q9967; J1610; J2001

== ENCOUNTER → 2018-04-25 | Outpatient (CLI) | payer BC ==
[~2018-04-25] MED LIST changes: -HYDROmorphone 2 MG/ML VIAL IV PRN; -IV RINGERS,LACTATED 1000ML 1,000 ML IV SCH; -LIDOCAINE 1% PF 2 ML VIAL. ID PRN; -MORPHINE SULFATE 4 MG/ML DISP.SYRIN. IV PRN; -ONDANSETRON PF 4 MG/2 ML VIAL. IV PRN; +OXYC-323 PO; +SENN1TAB70 PO; -fentaNYL PF VIAL 100 MCG/2 ML VIAL IV PRN
[2018-04-25 17:03] LABS: CALCIUM 9.1 mg/dL (8.5-10.1); CREATININE 1.1 mg/dL (0.7-1.3); GFR 69.2; MAGNESIUM 2.1 mg/dL (1.8-2.4); POTASSIUM 3.9 mmol/L (3.5-5.1)
[2018-04-25 17:18] LABS: THYROID STIM HORMONE (TSH) 1.511 uIU/mL (0.358-3.74)
== END | disposition home or self-care (01) ==
LOC: LAB 16:17
PROVIDERS: ATTEND Nurse Practitioner Gerontology
DX: R42 Dizziness and giddiness (principal)
CPT/HCPCS: 36415; 80048; 83735; 84439; 84443

== ENCOUNTER → 2018-04-27 | Outpatient (CLI) | payer BC ==
--- NOTE | 2018-04-27 09:53 | RAD ---
EXAM: Carotid Doppler sonogram. HISTORY: Subclavian steal syndrome. TECHNIQUE: Ewing scale and color Doppler sonographic evaluation of the neck with spectral waveform analysis was performed and static images are submitted for review. FINDINGS: There is mild intimal thickening involving the common carotid arteries and carotid bulbs. The peak systolic velocity within the right common carotid artery is 88 cm/sec. The peak systolic velocity within the right internal carotid artery is 81 cm/sec and the end diastolic velocity within the right internal carotid artery is 30 cm/sec. The right ICA/CCA ratio is 0.91. The peak systolic velocity within the left common carotid artery is 87 cm/sec. The peak systolic velocity within the left internal carotid artery is 88 cm/sec and the end diastolic velocity within the left internal carotid artery is 33 cm/sec. The left ICA/CCA ratio is 1.15. There is normal antegrade flow within both vertebral arteries. The peak systolic velocities within the subclavian arteries measure 83 cm/s on the right and 65 cm/s on the left. IMPRESSION: No Doppler evidence of hemodynamically significant stenosis within the carotid or vertebral arteries. Specifically, no evidence of subclavian steal. PQRS Compliance Statement - Stenosis calculations for CT, MR and conventional angiography are based upon measurement of the distal ICA diameter in accordance with the NASCET methodology. Stenosis calculations for carotid ultrasound studies are derived from validated velocity criteria which are known to correlate with the NASCET methodology. Electronically signed by: Moriah Lawrence MD (04/27/2018 9:50 AM) [place] [id number]
== END | disposition home or self-care (01) ==
LOC: US 09:53
PROVIDERS: ATTEND Nurse Practitioner Gerontology
DX: R42 Dizziness and giddiness (principal); K21.9 Gastro-esophageal reflux disease without esophagitis; I25.10 Atherosclerotic heart disease of native coronary artery without angina pectoris; J44.9 Chronic obstructive pulmonary disease, unspecified; E78.5 Hyperlipidemia, unspecified; E78.00 Pure hypercholesterolemia, unspecified; M17.0 Bilateral primary osteoarthritis of knee; M19.012 Primary osteoarthritis, left shoulder; M19.011 Primary osteoarthritis, right shoulder; M19.041 Primary osteoarthritis, right hand; M19.042 Primary osteoarthritis, left hand; F17.200 Nicotine dependence, unspecified, uncomplicated; Z90.49 Acquired absence of other specified parts of digestive tract; Z87.39 Personal history of other diseases of the musculoskeletal system and connective tissue; Z86.39 Personal history of other endocrine, nutritional and metabolic disease; Z88.6 Allergy status to analgesic agent; Z82.49 Family history of ischemic heart disease and other diseases of the circulatory system; Z86.69 Personal history of other diseases of the nervous system and sense organs
CPT/HCPCS: 93880

== ENCOUNTER → 2018-06-20 | Outpatient (CLI) | payer BC ==
--- NOTE | 2018-06-20 09:30 | RAD ---
MRI Brain without contrast History: Nearly daily syncopal episodes for 2 months Technique: Multiplanar, multisequential noncontrast MR imaging was performed of the brain. Contrast: None Comparison: None Findings: There is no evidence of recent infarct or cytotoxic edema. The ventricles, sulci, and cisterns are within normal limits in size and configuration. There is no significant midline shift, intraaxial mass effect, or focal abnormal extra-axial fluid collection. There is a small 4 to 5 mm focus of signal abnormality of the posterior left parietal lobe centered in the subcortical white matter adjacent to the cortical surface, overall features of a small cavernous malformation. There are couple of tiny foci of T2 and FLAIR hyperintense signal of the periatrial white matter. There is preservation of the major intracranial flow-voids at the skull base. The mastoid air cells are aerated. The cerebellar tonsils are normal in location. There is no significant abnormality of the pineal gland or pituitary gland. There is mild bilateral ethmoid air cell and negligible left frontal sinus mucosal thickening. There is preserved marrow signal of the clivus. Impression: 1. There is no evidence of recent infarct or intracranial mass effect. 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 There are couple of other small foci of likely nonspecific gliosis of the periatrial white matter. Electronically signed by: Regan Amanda MD (06/20/2018 9:27 AM) [id number]
== END | disposition home or self-care (01) ==
LOC: MRI 07:32
PROVIDERS: ATTEND Family Medicine
DX: R42 Dizziness and giddiness (principal)
CPT/HCPCS: 70551

== ENCOUNTER → 2018-07-21 | Outpatient (CLI) | payer BC ==
[2018-07-21 12:33] LABS: BASO # 0.1 x10^3/uL (0.0-0.2); BASO % 1 % (0-3); EOS # 0.4 x10^3/uL (0.0-0.7); EOS % 4 % (0-3); HEMATOCRIT 45.4 % (39.0-53.0); HEMOGLOBIN 15.9 g/dL (13.0-17.5); LYMPH % 35 % (24-48); MEAN CORPUSCULAR HEMOGLOBIN 33 pg (25-35); MEAN CORPUSCULAR HGB CONC 35 g/dL (31-37); MEAN CORPUSCULAR VOLUME 93 fL (79-100); MONO # 0.7 x10^3/uL (0.0-1.1); MONO % 9 % (0-9); NEUT # 4.3 x10^3uL (1.8-7.7); NEUT % 51 % (31-73); PLATELET COUNT 209 x10^3/uL (140-400); RED BLOOD COUNT 4.88 x10^6/uL (4.30-5.70); RED CELL DISTRIBUTION WIDTH 13.8 % (11.5-14.5); WHITE BLOOD COUNT 8.5 x10^3/uL (4.0-11.0)
[2018-07-21 12:48] LABS: ALBUMIN 4.2 g/dL (3.4-5.0); ALBUMIN/GLOBULIN RATIO 1.3 (1.0-1.7); CALCIUM 9.2 mg/dL (8.5-10.1); CREATININE 1.2 mg/dL (0.7-1.3); GFR 62.6; POTASSIUM 4.6 mmol/L (3.5-5.1); TOTAL BILIRUBIN 0.3 mg/dL (0.2-1.0); TOTAL PROTEIN 7.4 g/dL (6.4-8.2)
[2018-07-21 12:49] LABS: BARBITURATES NEG (NEG); BENZODIAZEPINES NEG (NEG); CANNABINOIDS NEG (NEG); COCAINE NEG (NEG); METHADONE NEG (NEG); OPIATES NEG (NEG); PHENCYCLIDINE NEG (NEG)
[2018-07-21 12:54] LABS: AMPHETAMINE/METHAMPHETAMINE NEG (NEG)
--- NOTE | 2018-07-21 12:58 | EKG ---
[facility] [address] [place] [address] Test Date: 2018-07-21 Test Time: 12:56:27 Pat Name: CLIVE OTOOLE Department: Room: Gender: M Cna Instructor: ROCK : 1960 Requested By: LUCIUS HEAD Order Number: [id number] Reading MD: Rocky Gordillo Measurements Intervals Kaiser Rate: 67 P: 53 OK: 126 QRS: 44 QRSD: 72 T: 27 QT: 376 QTc: 400 Interpretive Statements SINUS RHYTHM LOW LIMB LEAD VOLTAGE QRS(T) CONTOUR ABNORMALITY CONSISTENT WITH ANTEROSEPTAL INFARCT PROBABLY OLD ABNORMAL ECG Electronically Signed On 07-22-2018 14:28:18 MANAGER LAN by Rocky Gordillo
== END | disposition home or self-care (01) ==
LOC: LAB 12:09
PROVIDERS: ATTEND Psychiatry & Neurology Neurology
DX: R51 Headache (principal); R55 Syncope and collapse
CPT/HCPCS: 36415; 80053; 80307; 85025; 85651; 93005

== ENCOUNTER → 2018-07-29 | Outpatient (CLI) | payer BC ==
[~2018-07-29] MED LIST changes: -OXYC-323 PO; +OXYC1TAB15 PO
--- NOTE | 2018-10-19 13:02 | EEG ---
DATE OF SERVICE: 07/29/2018 ELECTROENCEPHALOGRAM NUMBER: [id number]. OBJECTIVE: This is a 57-year-old male patient with history of seizure or syncopal like episodes. EEG was requested to help rule out seizure. METHODS: Twenty electrodes were applied according to the international 10-20 electrode placement system. EKG monitoring, hyperventilation, intermittent photic stimulation, monopolar and bipolar montages are routinely utilized. The record was obtained on a digital system with video monitoring. FINDINGS: 1. Background: The patient was recorded in the awake and drowsy states. No actual sleep state was recorded. The overall background amplitude is 10-20 microvolts. A posterior dominant rhythm of 8-9 Hz is observed. 2. Abnormalities: No specific epileptiform discharge or electrographic seizure is seen. No focal or diffuse slowing. 3. Activation: Hyperventilation was performed with fair efforts and normal response. Intermittent photic stimulation was performed with photic driving. No specific epileptiform discharge or electrographic seizure induced by hyperventilation or intermittent photic stimulation. IMPRESSION: This electroencephalogram is a normal study for the awake and drowsy states. No actual sleep state was recorded. No focal, lateralizing, specific epileptiform discharge, or electrographic seizure is seen. LUCIUS HEAD MD DR: LEO/velasquez JOB#: [id number] / [id number]
== END | disposition home or self-care (01) ==
LOC: RT 10:00
PROVIDERS: ATTEND Psychiatry & Neurology Neurology
DX: R56.9 Unspecified convulsions (principal)
CPT/HCPCS: 95816

== ENCOUNTER → 2018-08-16 | Outpatient (CLI) | payer BC ==
[2018-08-16 13:46] LABS: CREATININE 1.3 mg/dL (0.7-1.3); GFR 56.9
== END | disposition home or self-care (01) ==
LOC: LAB 13:09
PROVIDERS: ATTEND Psychiatry & Neurology Neurology
DX: D18.01 Hemangioma of skin and subcutaneous tissue (principal)
CPT/HCPCS: 36415; 82565; 84520; 85651

== ENCOUNTER → 2018-08-17 | Outpatient (CLI) | payer BC ==
[~2018-08-17] MED LIST changes: +IOHEXOL 300 MG/ML 100ML VIAL. IV ONE
--- NOTE | 2018-08-17 16:46 | RAD ---
PQRS Compliance Statement: One or more of the following individualized dose reduction techniques were utilized for this examination: 1. Automated exposure control 2. Adjustment of the mA and/or kV according to patient size 3. Use of iterative reconstruction technique CT ANGIOGRAPHY HEAD Clinical Indication: DIZZY FALL CAVERNOUS MALFORMATION Comparison: MR brain without contrast, June 20, 2018. Technique: Helical CT imaging from the skull base to the skull vertex is performed before and after 60 cc of Omnipaque [address] angiogram protocol. 3-D MIP reconstructions of the cervical carotid arteries and venetie ira of [place] are performed. PQRS Compliance Statement - Stenosis calculations for CT, MR and conventional angiography are based upon measurement of the distal ICA diameter in accordance with the NASCET methodology. Stenosis calculations for carotid ultrasound studies are derived from validated velocity criteria which are known to correlate with the NASCET methodology. Findings: Noncontrast CT head is negative other than redemonstrated congenital or old posttraumatic medial deviation of the right lamina papyracea. There is no CT correlate for the tiny cavernous malformation noted on MR. The vertebral arteries are relatively codominant. The basilar artery is patent. There is persistent origin of the right posterior cerebral artery. The left posterior cerebral artery is intact. There is a small caliber left posterior communicating artery. Mild atherosclerotic calcification of the cavernous internal carotid arteries without significant stenosis. The right A1 segment is very small caliber. The right anterior cerebral artery fills from anterior communicating artery. The left PINA is patent. The middle cerebral arteries are patent. No intracranial aneurysm or vascular malformation is identified. IMPRESSION: Normal variant CTA head findings. Electronically signed by: Justice Pedersen MD (08/17/2018 4:42 PM) [id number]
== END | disposition home or self-care (01) ==
LOC: CT 09:01
PROVIDERS: ATTEND Psychiatry & Neurology Neurology
DX: D18.01 Hemangioma of skin and subcutaneous tissue (principal); Q28.3 Other malformations of cerebral vessels
CPT/HCPCS: 70496; Q9967

== ENCOUNTER → 2019-06-19 | Outpatient (CLI) | payer BC ==
[~2019-06-19] MED LIST changes: -IOHEXOL 300 MG/ML 100ML VIAL. IV ONE; +LISI1TAB20 PO; -LISI1TAB7 PO; -PANT40TA5 PO; +PANT40TA77 PO
--- NOTE | 2019-06-19 17:31 | RAD ---
LUMBAR SPINE 2-3V History: Acute left-sided low back pain Comparison: None. Findings: 3 views of the lumbar spine are submitted. There is very minimal grade 1 anterior spondylolisthesis L5-S1, bilateral L5 spondylolysis. Lumbar vertebral body stature is overall maintained. There is mild degenerative disc disease L2-3 and L3-4, minimal spondylosis. There is moderate degenerative disc disease greater posteriorly L5-S1. Impression: 1. There is minimal grade 1 anterior spondylolisthesis L5-S1 due to L5 spondylolysis. 2. There is degenerative disc disease greatest at L5-S1 and to lesser degree at L3-4 and L2-3. Electronically signed by: Regan Amanda MD (06/19/2019 5:28 PM) [id number]
== END | disposition home or self-care (01) ==
LOC: RAD 10:53
PROVIDERS: ATTEND Family Medicine
DX: M43.17 Spondylolisthesis, lumbosacral region (principal); M51.37 Other intervertebral disc degeneration, lumbosacral region; M47.816 Spondylosis without myelopathy or radiculopathy, lumbar region
CPT/HCPCS: 72100

== ENCOUNTER → 2019-07-12 | Outpatient (CLI) | payer BC ==
--- NOTE | 2019-07-12 15:15 | KCIC ---
MRI of the lumbar spine without contrast 07/12/2019 CLINICAL HISTORY: Acute low back pain with left leg numbness since early June. TECHNIQUE: Unenhanced T1-weighted and T2-weighted sagittal and axial and inversion recovery sagittal images of the lumbar spine were obtained. FINDINGS: Comparison is made to radiographs of the lumbar spine dated 06/19/2019. Minimal S-shaped curvature of the thoracolumbar spine is seen. Degenerative signal changes are seen involving the L2-3, L3-4 and L5-S1 discs. Degenerative signal changes are seen within the marrow surrounding these discs. The conus medullaris is within normal limits in morphology, position, and signal characteristics. At the L1-2 disc space there is a mild generalized disc bulge. Degenerative changes are seen involving the facet joints bilaterally. These findings do not result in significant central spinal canal or neural foraminal stenosis. At the L2-3 disc space there is a mild to moderate generalized disc bulge. Superimposed on this disc bulge is a left paracentral/lateral disc protrusion. This measures 4 mm in AP diameter. Degenerative changes are seen involving the facet joints bilaterally. There is mild ligamentum flavum hypertrophy bilaterally. There is prominence of the posterior epidural fat. These findings do not result in significant central spinal canal stenosis. No neural foraminal stenosis is seen. At the L3-4 disc space there is a mild generalized disc bulge. Degenerative changes are seen involving the facet joints bilaterally. There are small facet joint effusions bilaterally. There is mild ligamentum flavum hypertrophy bilaterally. Superimposed on the disc bulge is a left lateral focal disc protrusion. This measures 3 mm in AP diameter. These findings when combined do not result in significant central spinal canal stenosis. Mild left neural foraminal stenosis is seen. The right neural foramen is patent. At the L4-5 disc space there is a minimal generalized disc bulge. Degenerative changes are seen involving the facet joints bilaterally. There is mild ligamentum flavum hypertrophy bilaterally. Small facet joint effusions are seen bilaterally. These findings when combined do not result in significant central spinal canal or neural foraminal stenosis. At the L5-S1 disc space there is a mild to moderate generalized disc bulge. This is eccentric to the right. Degenerative changes are seen involving the facet joints bilaterally. These findings do not result in significant central spinal canal or neural foraminal stenosis. IMPRESSION: The changes of degenerative disc disease are seen involving the lumbar spine. These findings do not result in significant central spinal canal stenosis at any level. Mild left neural foraminal stenosis is seen at L3-4. Electronically signed by: Kev Anand MD (07/12/2019 3:12 PM) [id number]
== END | disposition home or self-care (01) ==
LOC: KCIC MRI 12:41
PROVIDERS: ATTEND Family Medicine
DX: M51.36 Other intervertebral disc degeneration, lumbar region (principal); M51.26 Other intervertebral disc displacement, lumbar region; M48.061 Spinal stenosis, lumbar region without neurogenic claudication; M89.38 Hypertrophy of bone, other site
CPT/HCPCS: 72148

== ENCOUNTER → 2019-07-19 | Outpatient (CLI) | payer BC ==
[2019-07-19 11:05] LABS: BASO # 0.1 x10^3/uL (0.0-0.2); BASO % 1 % (0-3); EOS # 0.3 x10^3/uL (0.0-0.7); EOS % 3 % (0-3); HEMATOCRIT 49.8 % (39.0-53.0); LYMPH # 3.3 x10^3/uL (1.0-4.8); LYMPH % 28 % (24-48); MEAN CORPUSCULAR HEMOGLOBIN 32 pg (25-35); MEAN CORPUSCULAR HGB CONC 34 g/dL (31-37); MEAN CORPUSCULAR VOLUME 93 fL (79-100); MONO # 0.8 x10^3/uL (0.0-1.1); MONO % 7 % (0-9); NEUT % 61 % (31-73); PLATELET COUNT 281 x10^3/uL (140-400); RED BLOOD COUNT 5.34 x10^6/uL (4.30-5.70); RED CELL DISTRIBUTION WIDTH 13.4 % (11.5-14.5); WHITE BLOOD COUNT 11.5 x10^3/uL (4.0-11.0)
[2019-07-19 11:38] LABS: ALBUMIN 4.6 g/dL (3.4-5.0); ALBUMIN/GLOBULIN RATIO 1.3 (1.0-1.7); CALCIUM 9.9 mg/dL (8.5-10.1); CREATININE 1.2 mg/dL (0.7-1.3); GFR 62.4; POTASSIUM 4.2 mmol/L (3.5-5.1); TOTAL BILIRUBIN 0.5 mg/dL (0.2-1.0); TOTAL PROTEIN 8.1 g/dL (6.4-8.2)
[2019-07-19 11:44] LABS: CHOLESTEROL/HDL RATIO 4.1
== END | disposition home or self-care (01) ==
LOC: LAB 10:47
PROVIDERS: ATTEND Family Medicine
DX: Z13.9 Encounter for screening, unspecified (principal); M54.5 Low back pain; N40.0 Benign prostatic hyperplasia without lower urinary tract symptoms; I10 Essential (primary) hypertension
CPT/HCPCS: 36415; 80053; 80061; 84153; 85025; G0103

== ENCOUNTER → 2019-08-02 | Outpatient (CLI) | payer BC ==
[~2019-08-02] MED LIST changes: +IOHEXOL 180 MG/ML 10 ML VIAL. ONE; +methylPREDNISolone ACETATE 40 MG/ML VIAL. ONE; +methylPREDNISolone ACETATE 80 MG/ML VIAL. ONE
--- NOTE | 2019-08-02 12:20 | PAIN ---
DATE OF SERVICE: 08/02/2019 INITIAL CONSULTATION FOR PAIN CLINIC CHIEF COMPLAINT: Low back and left lower extremity pain. HISTORY OF PRESENT ILLNESS: This is a 59-year-old male who presents with history of pain for about 2 months now. We came on without any specific injury or accident. Woke up one morning, the pain was in the low back radiating to the left posterior gluteus, lateral thigh, lateral anterior thigh, anterior medial thigh, medial knee on the left side in the groin occasionally. The patient reports he take a lot of fairly long car ride to the [facility] and back several weeks before this and he did have some pain in the same region, but it resolved when he got back home and then on 06/07, the pain began when he was awoken from sleep and has not gone away. The patient did try physical therapy earlier this month, which was not helpful and has actually made the numbness go down into his lower leg medially as well. The patient reports it is now tingling and numb described as constant, sharp in the back, stabbing, throbbing, shooting into the left lower extremity. No pain on the right side, also burning quality in the back itself. The patient reports a disability rating from 0-10, 10 being the worst, as a 7 with family home responsibilities, 8 with recreation and social activity, 9 with occupation, 1 with sexual behavior, 7 with self-care and 9 with life support activities, especially sleeping. It wakes him from sleep at least 4-6 times a night. Reports it did not affect his bowel or bladder control, but does affect his ability to walk. His left leg is fatiguing very significantly. He has noticed he has been standing more and putting more weight on his right side, which is causing his knee and his hip to hurt on the right side as well. The patient has been taking hydrocodone, which has not decreased the pain. He described as recently 2 days ago. PAST MEDICAL HISTORY: Significant for hearing loss, hypertension, cigarette smoking for 52 years, 1 pack a day, arthritis. PREVIOUS SURGERY: Includes a left knee surgery, cardiac stents, bilateral shoulder surgeries, laparoscopic cholecystectomy and tonsillectomy. The patient did have MRI scan of the lumbar spine showing degenerative disk disease throughout the lumbar spine with mild left neural foraminal stenosis at L3-L4 with a superimposed left lateral focal disk protrusion measuring 3 mm with mild left neural foraminal stenosis. CURRENT MEDICATIONS: Include methocarbamol, Lortab, Prilosec, cranberry, vitamin D, multivitamins daily, baby aspirin, Mobic, Tegretol, lisinopril, and metoprolol. ALLERGIES: THE PATIENT IS ALLERGIC TO CODEINE. FAMILY HISTORY: Significant for no major medical problems or conditions that he lists. SOCIAL HISTORY: The patient does not drink alcohol. Smokes 1 pack a day, continues to smoke. He is and lives with his spouse, does not use any illegal, illicit or recreational drugs. Lives locally in [place]. REVIEW OF SYSTEMS: The patient's review of systems is positive for those items mentioned in history of present illness. All systems reviewed and otherwise negative. It is complete, full and well documented on the patient's chart. PHYSICAL EXAMINATION: VITAL SIGNS: The patient's blood pressure 132/95, pulse 83, respirations 16, temperature 98.4 degrees Fahrenheit, height is 5 feet 7 inches and weight is 169 pounds. GENERAL: The patient is awake, alert, oriented, appropriate, very pleasant demeanor. HEENT: Shows normocephalic, atraumatic. Extraocular movements are intact and symmetrical. Oral cavity shows mucous membranes moist and pink. Dentition is intact. NECK: Shows anterior throat supple without palpable lymphadenopathy noted. Swallow reflex is symmetrical. CHEST: Shows normal on inspection. Breath sounds clear bilaterally. HEART: Shows S1, S2 clear. No murmurs auscultated. ABDOMEN: Soft, nontender, nondistended. No palpable organomegaly is noted. No rebound or guarding demonstrated. BACK: Shows spine grossly in the midline. Normal appearing thoracic kyphosis and minor flattening of lumbar lordotic curvature. Lumbar paraspinous muscle shows symmetrical on inspection, on palpation shows some moderate tenderness diffusely bilaterally going diffusely without radiation. EXTREMITIES: The patient's lower extremities show deep tendon reflexes at 2+ in the patellar, 1+ tendo-calcaneus tendons. Motor exam is strong with 5/5 dorsiflexion, extension, quadriceps and hamstring flexion. Straight leg raise noted to be mildly positive on the left at about 35-40 degrees with pain in the lateral and anterior thigh, decreased with knee flexion, right side is negative. Gaenslen's and Angel's maneuvers are negative bilaterally as well. Lower extremities are warm and dry to touch, equal in color and appearance. The patient is able to walk without significant difficulty. Does appear to favor the left lower extremity mildly, not using any assistive devices to ambulate. SKIN: Shows warm and dry, good turgor. No edema. No sores, rashes or bruising throughout. IMPRESSION: 1. This is a 59-year-old male with approximate 2-month history of increasing pain, low back, left lower extremity in a radicular fashion. 2. MRI scan of lumbar spine as noted 3. Hypertension. 4. Arthritis. 5. Cigarette smoking. PLAN: Options were discussed with the patient including conservative medical managements, physical therapies and interventional techniques. He would like to pursue interventional techniques. We discussed a lumbar epidural steroid injection using description as well as anatomical models to describe the procedure. Risks were then discussed including, but not limited to bleeding, infection, possibility of epidural hematoma, subsequent neurological compromise, dural puncture, headaches, spinal cord and/or nerve damage, side effects of steroid medication and poor results regarding pain control. The patient understands and wished to proceed. The patient will return to clinic in approximately 2 weeks for followup. He was counseled on return appointment, activity level and side effects to be aware of. DIAGNOSES: Lumbar radiculopathy with lumbar degenerative disk disease. PROCEDURE: Lumbar epidural steroid injection, translaminar approach at L3-L4 level using C-arm fluoroscopic guidance under sterile prep and drape using local anesthetic. MEDICATION INJECTED: A total of 120 mg Depo-Medrol plus 10 mL of preservative-free normal saline and 2 mL of contrast. CONDITION AT DISCHARGE: Stable. The patient tolerated the procedure well, had no complications. CHARLIE DAVALOS MD DR: REBECCA/velasquez JOB#: [id number] / [id number]
== END | disposition home or self-care (01) ==
LOC: PNCL 10:33
PROVIDERS: ATTEND Anesthesiology
DX: M51.16 Intervertebral disc disorders with radiculopathy, lumbar region (principal); M19.90 Unspecified osteoarthritis, unspecified site; I10 Essential (primary) hypertension; F17.210 Nicotine dependence, cigarettes, uncomplicated; Z98.890 Other specified postprocedural states; Z95.5 Presence of coronary angioplasty implant and graft; Z90.49 Acquired absence of other specified parts of digestive tract; Z79.899 Other long term (current) drug therapy
CPT/HCPCS: 62323; J1030; J1040; Q9965

== ENCOUNTER → 2019-08-16 | Outpatient (CLI) | payer BC ==
--- NOTE | 2019-08-16 13:33 | PAIN ---
DATE OF SERVICE: 08/16/2019 PROGRESS NOTE FOR PAIN CLINIC DIAGNOSES: Lumbar radiculopathy with lumbar degenerative disk disease. HISTORY OF PRESENT ILLNESS: The patient is a 59-year-old male who returns for followup, status post lumbar epidural steroid injection x 1. The patient reports about 50% improvement, but only for a few days following the injection. The patient reports the pain returned fairly quickly in the low back, left lower extremity, posterior gluteus, posterolateral thigh, anterior thigh, medial thigh, medial groin and medial knee on the left side. The patient reports some numbness in the legs as well. Describes it as aching, sharp, dull, shooting with tingling, burning, stabbing somewhat constant over the last few days. He reports it is a 9 on a scale of 10 at its worst in the past week, 7 on average, 5 at its least and is a 7 today. The patient reports no new motor or sensory deficits, no new bowel or bladder incontinence. For the first few days, he was increasing his sleep much greater, doing distance walking, greater distances, able to do work and household activities with much greater ease and comfort, but again the pain returning close to baseline. PHYSICAL EXAMINATION: VITAL SIGNS: The patient's blood pressure is 141/90, pulse 75, respirations 16, temperature 98.3 degrees Fahrenheit, weight is 166 pounds. GENERAL: The patient is awake, alert, oriented, appropriate, very pleasant demeanor. HEENT: Shows normocephalic, atraumatic. Extraocular movements are intact and symmetrical. Oral cavity: Mucous membranes moist and pink. Dentition is intact. NECK: Shows anterior throat supple without palpable lymphadenopathy noted. Swallow reflex symmetrical. CHEST: Shows normal on inspection. Breath sounds clear to auscultation bilaterally. HEART: Shows S1, S2 clear. No murmurs auscultated. ABDOMEN: Soft, nontender, nondistended. BACK: Shows spine grossly in the midline. Normal appearing thoracic kyphosis and lumbar lordotic curvature. Lumbar paraspinous muscle shows symmetrical on inspection, on palpation shows some moderate tenderness diffusely, but only diffusely without significant radiation. EXTREMITIES: The patient's lower extremities show deep tendon reflexes 2+ in the patellar, 1+ tendo-calcaneus tendons. Motor exam is strong with 5/5 dorsiflexion, extension, quadriceps and hamstring flexion symmetrical. Peripheral pulses are 1+ posterior tibia. No peripheral edema is noted. Options were discussed with the patient. The patient's old chart was reviewed as his current medication regimen updated and review of systems updated today as well. We will proceed with a second in the series of lumbar epidural steroid injection today with fluoroscopic guidance. Risks were again discussed including, but not limited to bleeding, infection, possibility of epidural hematoma, subsequent neurological compromise, dural puncture, headaches, spinal cord and/or nerve damage, side effects of steroid medication and poor results regarding pain control. The patient understands and wished to proceed. The patient will return to clinic in approximately 2 weeks for followup. He was counseled on return appointment, activity level and side effects to be aware of. DIAGNOSES: Lumbar radiculopathy with lumbar degenerative disk disease. PROCEDURE: Lumbar epidural steroid injection, translaminar approach at L3-L4 level using C-arm fluoroscopic guidance under sterile prep and drape using local anesthetic. MEDICATION INJECTED: A total of 120 mg of Depo-Medrol plus 10 mL of preservative-free normal saline and 2 mL of contrast. CONDITION AT DISCHARGE: Stable. The patient tolerated the procedure well, had no complications. CHARLIE DAVALOS MD DR: REBECCA/velasquez JOB#: [id number] / [id number]
== END ==
LOC: PNCL 11:09
PROVIDERS: ATTEND Anesthesiology
DX: M51.16 Intervertebral disc disorders with radiculopathy, lumbar region (principal)
CPT/HCPCS: 62323; J1030; J1040; Q9965

== ENCOUNTER → 2019-08-31 | Outpatient (CLI) | payer BC ==
[~2019-08-31] MED LIST changes: +ASPI-630 PO
--- NOTE | 2019-08-31 15:08 | PAIN ---
DATE OF SERVICE: 08/31/2019 PROGRESS NOTE FOR PAIN CLINIC DIAGNOSIS: Lumbar radiculopathy with lumbar degenerative disk disease. HISTORY OF PRESENT ILLNESS: The patient is a 51-year-old male who returns for followup status post lumbar epidural steroid injection x 2, most recently 08/16/2019. The patient reports he did fairly well, but only about 20% improvement after the second injection. First injection, he did very well with about 50% improvement with pain returning now in the low back, left lower extremity, mostly in the lateral anterior thigh, anterior medial thigh, medial lower leg, medial knee and calf on the left side only. The patient reports it is aching, sharp, dull, tight, shooting in the leg, aching in the back, tingling and burning in the legs, stabbing in the back, radiating in the leg, constant, becoming more severe and more unbearable at times, on and off in intensity, worse with walking, standing, better with sitting or lying down. The patient reports it is getting back to baseline now. The patient reports his pain is a 9 on a scale of 10 at its worst in the past week, 8 on average, 8 at its least and is an 8 today. The patient reports there are spasms in the back too which were not significantly painful, but is noticing some muscle contraction in the low back with walking or standing or sitting in a car, driving more than about 10 minutes. The patient reports it awakens him from sleep about every 2 hours over the past week or so. Prior to that was not having as many nights with difficulty sleeping, but still significant pain reported. The patient reports no new motor or sensory deficits, no new bowel or bladder incontinence or other complaints. PHYSICAL EXAMINATION: VITAL SIGNS: The patient's blood pressure is 136/91, pulse 77, respirations 16, temperature 98.4 degrees Fahrenheit, height is 5 feet 7 inches and weight is 171 pounds. GENERAL: The patient is awake, alert, oriented, appropriate, very pleasant demeanor. HEENT: Head shows normocephalic, atraumatic. Extraocular movements are intact and symmetrical. Oral cavity shows mucous membranes moist and pink. Dentition is intact. NECK: Shows anterior throat supple without palpable lymphadenopathy noted. Swallow reflex symmetrical. CHEST: Shows normal on inspection. Breath sounds are clear bilaterally. HEART: Shows S1, S2 clear. No murmurs auscultated. ABDOMEN: Soft, nontender, nondistended. BACK: Shows spine grossly in the midline. Normal appearing thoracic kyphosis and minor flattening of lumbar lordotic curvature. Lumbar paraspinous muscle shows symmetrical on inspection, with palpation is firm bilaterally, but only diffusely without significant radiation. EXTREMITIES: The patient's lower extremities show deep tendon reflexes at 2+ in the patellar, 1+ tendo-calcaneus tendons. Motor exam is strong with 5/5 dorsiflexion, extension, quadriceps and hamstring flexion symmetrical. Peripheral pulses are 1+ posterior tibia. No peripheral edema is noted bilaterally. Options were discussed with the patient. The patient's old chart was reviewed as his current medication regimen updated. Current review of systems updated today as well. We will proceed with a third in the series of lumbar epidural steroid injection today with fluoroscopic guidance. Risks were again discussed including, but not limited to bleeding, infection, possibility of epidural hematoma, subsequent neurological compromise, dural puncture, headaches, spinal cord and/or nerve damage, side effects of steroid medication and poor results regarding pain control. The patient understands and wished to proceed. The patient will return to clinic in approximately 2 weeks for followup. He was counseled on return appointment, activity level and side effects to be aware of. DIAGNOSIS: Lumbar radiculopathy with lumbar degenerative disk disease. PROCEDURE: Lumbar epidural steroid injection, translaminar approach L3-L4 level using C-arm fluoroscopic guidance under sterile prep and drape using local anesthetic. MEDICATION INJECTED: A total of 120 mg Depo-Medrol plus 10 mL of preservative-free normal saline and 2 mL of contrast. CONDITION AT DISCHARGE: Stable. The patient tolerated procedure well, had no complications. CHARLIE DAVALOS MD DR: REBECCA/velasquez JOB#: [id number] / [id number]
== END ==
LOC: PNCL 09:33
PROVIDERS: ATTEND Anesthesiology
DX: M51.16 Intervertebral disc disorders with radiculopathy, lumbar region (principal)
CPT/HCPCS: 62323; J1030; J1040; Q9965

== ENCOUNTER → 2019-10-16 | Outpatient (CLI) | payer BC ==
[~2019-10-16] MED LIST changes: +IOHEXOL 180 MG/ML 10 ML VIAL. IT ONE; -IOHEXOL 180 MG/ML 10 ML VIAL. ONE; +LIDOCAINE 1% Multi-Dose 20 ML VIAL. ID ONE; -methylPREDNISolone ACETATE 40 MG/ML VIAL. ONE; -methylPREDNISolone ACETATE 80 MG/ML VIAL. ONE
--- NOTE | 2019-10-16 15:52 | KCIC ---
Lumbar Myelogram History: Lumbar radiculopathy, left leg pain for 4 months Technique: Patient was informed of the risks of the procedure to include pain, infection, bleeding, seizures, nerve root injury, and allergic reaction to the contrast. All questions were answered. Patient signed a written consent form for a lumbar myelogram. The patient was placed in a prone oblique position on the fluoroscopy table. External site of the lower back was prepped and draped in the usual sterile fashion. Betadine was utilized for cleansing solution. 1% lidocaine was utilized for local anesthesia at the anticipated site of puncture right L3-4 interlaminar space. A 19-gauge guiding needle was advanced into the soft tissues. Through the guiding needle, a 25 gauge Laura needle was advanced until there was return of cerebral spinal fluid. Approximately 15 cc Omnipaque 180 were then injected during fluoroscopic visualization. The needles were removed. Fluoroscopic spot images including standing images were acquired of the lumbar spine. The patient was then transferred to the CT department for CT examination of the lumbar spine. There were no immediate complications. Fluoroscopy time: 57 seconds, 12 images Findings: There is no evidence of myelographic block. There is grade 1 anterior spondylolisthesis L5-S1 very slightly decreased with extension. There is bilateral L5 spondylolysis. There are small anterior extradural defects at L3-4 and L2-3. There is scattered atherosclerotic calcification of the abdominal aorta. There is spondylosis greatest at L2-3 and L3-4. There is moderate to severe L5-S1 degenerative disc disease, minimally at L2-3 and L3-4. Impression: 1. There is grade 1 anterior spondylolisthesis at L5-S1, very slightly decreased with extension. There is L5 spondylolysis. 2. There is degenerative disc disease greatest at L5-S1. Electronically signed by: Regan Amanda MD (10/16/2019 3:20 PM) [facility]
--- NOTE | 2019-10-16 15:52 | KCIC ---
CT lumbar spine exam History: Lumbar radiculopathy, left lateral leg pain for 4 months Technique: CT imaging was performed of the lumbar spine after injection for lumbar myelogram. Multiplanar reconstruction images are submitted. Exposure: One or more of the following individualized dose reduction techniques were utilized for this examination: 1. Automated exposure control 2. Adjustment of the mA and/or kV according to patient size 3. Use of iterative reconstruction technique. Comparison: July 12, 2019 MRI lumbar spine exam Findings: Lumbar vertebral body stature is maintained. Conus terminates at the mid aspect of L1. There is moderate to severe degenerative disc disease greater posteriorly at L5-S1, minimally at L2-3 and L3-4. There is grade 1 anterior spondylolisthesis at L5-S1 due to bilateral L5 spondylolysis. There is mild scattered plaque of the abdominal aorta and iliac arteries. There is mild sclerosis adjacent to superior T12 Schmorl's node not fully included. There is very mild dextroscoliosis centered near L3-4. T12-L1: Spinal canal and neural foramina are adequate. There is moderate facet degenerative change. L1-L2: There is moderate facet hypertrophic change. Neural foramina and spinal canal are adequate. L2-L3: There is moderate facet hypertrophic change. There is minimal bulge slightly indenting the ventral thecal sac greater in the far left lateral recess, spinal canal not significantly narrowed. Neural foramina are adequate. L3-L4: There is moderate facet hypertrophic change. There is minimal disc osteophyte complex greater in the inferior left neural foramen. Spinal canal and right neural foramen are adequate. There is mild narrowing of the inferior left neural foramen, disc osteophyte complex near the undersurface of exiting left L3 nerve root extending to the proximal extraforaminal region without significant displacement. L4-L5: There is moderate facet hypertrophic change bilaterally. Spinal canal is adequate. Neural foramina are adequate. L5-S1: There is prominence of epidural fat in the lateral recesses bilaterally, preserved central subarachnoid space. There is partial uncovering of the posterior aspect of the disc due to spondylolisthesis with minimal superimposed bulge. Spinal canal is adequate, there is fairly severe narrowing of the right neural foramen greater distally in part by disc osteophyte complex contacting the exiting right L5 nerve root in the distal neural foramen and proximal extraforaminal region. There is mild to moderate narrowing of the left neural foramen, light contact of the undersurface exiting left L5 nerve root. Impression: 1. There is no significant lumbar spinal stenosis. There is fairly severe narrowing of the right L5-S1 neural foramen with contact of the exiting right L5 nerve root, mild to moderate narrowing on the left at L5-S1 and to a lesser degree at L3-4 as described. 2. There is grade 1 anterior spondylolisthesis at L5-S1 due to bilateral L5 spondylolysis. 3. There is degenerative disc disease greatest at L5-S1 and to lesser degree L3-4 and L2-3. There is mild spondylosis. Electronically signed by: Regan Amanda MD (10/16/2019 3:20 PM) [facility]
== END | disposition home or self-care (01) ==
LOC: KCIC 08:57
PROVIDERS: ATTEND Neurological Surgery
DX: M43.17 Spondylolisthesis, lumbosacral region (principal); M47.26 Other spondylosis with radiculopathy, lumbar region; M51.17 Intervertebral disc disorders with radiculopathy, lumbosacral region; M43.15 Spondylolisthesis, thoracolumbar region; M48.07 Spinal stenosis, lumbosacral region; M25.78 Osteophyte, vertebrae; I70.0 Atherosclerosis of aorta
CPT/HCPCS: 72132; 72265; Q9965

== ENCOUNTER → 2019-11-06 | Outpatient (CLI) | payer BC ==
[~2019-11-06] MED LIST changes: +ALBU2.5V8 INH; +AMLO5TAB10 PO; +ATOR20TA58 PO; +HYDR-2765 PO; -IOHEXOL 180 MG/ML 10 ML VIAL. IT ONE; -LIDOCAINE 1% Multi-Dose 20 ML VIAL. ID ONE; +OMEP20TA8 PO
[2019-11-06 15:14] LABS: BASO % 0 % (0-3); EOS # 0.3 x10^3/uL (0.0-0.7); EOS % 3 % (0-3); HEMATOCRIT 45.2 % (39.0-53.0); HEMOGLOBIN 15.4 g/dL (13.0-17.5); LYMPH # 2.7 x10^3/uL (1.0-4.8); LYMPH % 23 % (24-48); MEAN CORPUSCULAR HEMOGLOBIN 32 pg (25-35); MEAN CORPUSCULAR HGB CONC 34 g/dL (31-37); MEAN CORPUSCULAR VOLUME 93 fL (79-100); MONO # 0.7 x10^3/uL (0.0-1.1); MONO % 6 % (0-9); NEUT # 7.9 x10^3/uL (1.8-7.7); NEUT % 68 % (31-73); PLATELET COUNT 244 x10^3/uL (140-400); RED BLOOD COUNT 4.87 x10^6/uL (4.30-5.70); RED CELL DISTRIBUTION WIDTH 13.6 % (11.5-14.5); WHITE BLOOD COUNT 11.7 x10^3/uL (4.0-11.0)
[2019-11-06 15:37] LABS: ALBUMIN 4.6 g/dL (3.4-5.0); ALBUMIN/GLOBULIN RATIO 1.6 (1.0-1.7); CALCIUM 9.7 mg/dL (8.5-10.1); CREATININE 1.2 mg/dL (0.7-1.3); GFR 62.2; POTASSIUM 3.8 mmol/L (3.5-5.1); TOTAL BILIRUBIN 0.7 mg/dL (0.2-1.0); TOTAL PROTEIN 7.4 g/dL (6.4-8.2)
== END | disposition home or self-care (01) ==
LOC: SURGPAT 14:00
PROVIDERS: ATTEND Neurological Surgery
DX: Z01.818 Encounter for other preprocedural examination (principal); M43.16 Spondylolisthesis, lumbar region; M54.16 Radiculopathy, lumbar region
CPT/HCPCS: 36415; 80053; 82306; 85025; 85610; 85730; 87641

== ENCOUNTER 2019-11-13 07:45 | Inpatient (IN) | payer BC ==
--- NOTE | 2019-11-10 15:34 | HP ---
ADMIT DATE: 11/13/2019 PREOPERATIVE HISTORY AND PHYSICAL HISTORY OF PRESENT ILLNESS: The patient is a pleasant 59-year-old who has difficulty with left-sided back pain, left hip pain and buttock pain as well as lateral thigh and leg pain. The problem started in 06/2019. He rates his pain as a 9/10. Standing and sitting increased his pain. He has tried physical therapy without help. He underwent epidural steroid injections. He said the first injection helped him. I studied him with lumbar flexion-extension myelogram. PAST MEDICAL HISTORY: Arthritis, chest pain, heart trouble/disease, hypertension and tonsillitis. PAST SURGICAL HISTORY: Cardiac stent in 2006, left knee surgery in 2013, left and right shoulder surgery in 2016. FAMILY HISTORY: Heart problems and disease, hypertension, [place] at an early age, migraine. SOCIAL HISTORY: Employed by [employer]. . Denies exercise. Denies substance abuse. He smokes 1-pack per day and has for 52 years. He drinks alcohol 1-2 times per year. He drinks greater than 10 cups of coffee per day. ALLERGIES: TO CODEINE. CURRENT MEDICATIONS: Ranitidine, meloxicam, lisinopril, aspirin, Men's One daily, cranberry, vitamin D3 and Lortab. REVIEW OF SYSTEMS: A 12-point review of systems was obtained and is noncontributory except for that mentioned above. PHYSICAL EXAMINATION: NEUROSURGERY EXAMINATION: GENERAL APPEARANCE: Alert, pleasant, no acute distress. HEAD: Normocephalic and atraumatic. SKIN: Warm and dry. MUSCULOSKELETAL: Lumbar paraspinal muscle bulk is normal, restricted range of motion of the lumbar spine, [id number] tenderness of the lower lumbar spine with palpation, normal range of motion of the lower extremities bilaterally. EXTREMITIES: No clubbing, cyanosis or edema. NEUROLOGIC: Alert and oriented x 3, normal recent and remote memory, strength 5/5 in bilateral lower extremities. Sensory is intact to light touch with the lower extremities bilaterally except for decrease in the left lateral thigh. Reflexes are present and symmetric in the bilateral lower extremities. Positive straight leg raising on the left, relieved by Lasegue maneuver. Negative straight leg raising on the right. Normal gait. IMAGING: I reviewed a lumbar myelogram and post-myelogram CT scan. On that study, the principal abnormality is at L5-S1 where there is a grade 1 anterolisthesis with impression on flexion and extension films. There is bilateral neural foraminal narrowing. On the left side, there is disk bulging and contacts with the left L5 root. Then, right side appears to be foraminal disk osteophyte complex at L2-L3 far left lateral. There is a disk bulging, but I did not see any neural foraminal narrowing and significance. At L3-L4, there is mild narrowing of the left neural foramen. ASSESSMENT/ PLAN: I believe the problems at L5-S1 are responsible for his radiculopathy, which is an L5 pattern. I believe the L5 root is being compressed on the left-sided neural foramen and this is being exacerbated by spondylolisthesis and motion related to spondylosis. To addresses problems would require a wide foraminal decompression at L5-S1 on the left, which would destabilize the spine. He will require in addition to the decompression, posterior instrumentation and posterolateral fusion. I did discuss this with him including the technique, risks, and expected postoperative course. He understands. He would like to go ahead. We will make the arrangements. DARRYN COLLINS MD DR: DAYDAY/velasquez JOB#: [id number] / [id number]
[~2019-11-13] VITALS: Ht 170.2 cm; Wt 81.2 kg
[2019-11-13] VITALS (10 sets, daily range): BP systolic 101–128; BP diastolic 54–82
[~2019-11-13 07:45] MED LIST changes: +BUPIVACAINE-EPI 0.5%-1:200000 MPF 30 ML VIAL. ONE; +GELATIN SPONGE SIZE 100. ONE; +IV RINGERS,LACTATED 1000ML 1,000 ML IV SCH; +KETOROLAC 60 MG/2 ML VIAL. ONE; +LIDOCAINE 1% PF 2 ML VIAL. ID PRN; +ONDANSETRON PF 4 MG/2 ML VIAL. IV PRN; +PROCHLORPERAZINE 10 MG/2 ML VIAL. IV PRN; +THROMBIN TOPICAL 20,000 UNIT SPRAY.SYRN KIT TP ONE; +fentaNYL PF VIAL 100 MCG/2 ML VIAL IV PRN
[2019-11-13] MEDS ORDERED: BACITRACIN 50,000 UNIT in IV NORMAL SALINE 1000ML BAG 1,000 ML IRR ONE (08:00)
[2019-11-13] MEDS ORDERED: VANCOMYCIN 1GM IVPB FOR OMNI 250 ML IV PRN (08:00)
--- NOTE | 2019-11-13 08:57 | NUR ---
PT WAS TX AND COMPLETED 5 DAY ABX PROTOCOL FOR MRSA.
--- NOTE | 2019-11-13 09:34 | RAD ---
EXAM: Lumbar spine CT without contrast. HISTORY: Herniated disc. Radiculopathy. TECHNIQUE: Computed tomographic images of the lumbar spine were obtained without contrast. Multiplanar reformatting was performed. *One or more of the following individualized dose reduction techniques were utilized for this examination: 1. Automated exposure control. 2. Adjustment of the mA and/or kV according to patient size. 3. Use of iterative reconstruction technique. COMPARISON: 10/16/2019. FINDINGS: There is grade 1 anterolisthesis of L5 on S1 measuring 5 mm. There are associated pars in particular is defects at this level. There is 2 mm retrolisthesis of L4 on L5. There is mild anterior predominant endplate remodeling throughout the lumbar spine. There is no fracture. There is no suspicious lytic or sclerotic osseous lesion. There is degenerative spurring and subchondral sclerosis involving the left greater than right sacroiliac joints. There is calcified atherosclerotic plaque within the aorta and iliac bifurcation. At L1-L2, there is anterior predominant endplate remodeling. There is no stenosis. At L2-L3, there is a disc bulge and anterior predominant endplate remodeling. There is no stenosis. At L3-L4, there is a left foraminal disc protrusion and osteophyte complex superimposed on a disc bulge and endplate remodeling. There is mild left foraminal stenosis with abutment of the exiting left L3 nerve root. At L4-L5, there is a disc bulge and anterior predominant endplate remodeling. There is no stenosis. At L5-S1, there is a shallow right foraminal to extra foraminal disc protrusion and osteophyte complex superimposed on a disc bulge. There is grade 1 anterolisthesis with pars defects. There is moderate to severe right and mild left foraminal stenosis with abutment of the exiting right greater than left L5 nerve roots. IMPRESSION: 1. Degenerative change involving the lumbar spine, described in detail above. This is associated with mild left foraminal stenosis and abutment of the exiting left L3 nerve root at L3-L4 and moderate to severe right and mild left foraminal stenosis with abutment of the exiting right greater than left L5 nerve roots at L5-S1. This is not significantly changed compared to the prior study dated 10/16/2019. 2. Grade 1 anterolisthesis with pars defects at L5-S1, also stable in appearance. Electronically signed by: Moriah Lawrence MD (11/13/2019 9:32 AM) [id number]
[2019-11-13] MEDS ORDERED: ROCURONIUM 50 MG/5 ML VIAL. ONE (09:57)
[2019-11-13] MEDS ORDERED: PROPOFOL 50 ML IV ONE ×3 (10:00→13:32)
[2019-11-13] MEDS ORDERED: REMIFENTANIL 2 MG VIAL. IV ONE ×2 (10:00→13:25)
[2019-11-13] MEDS ORDERED: LIDOCAINE 2% PF 5 ML VIAL. ONE (10:06)
[2019-11-13] MEDS ORDERED: PHENYLEPHRINE 10 MG/ML VIAL. ONE ×2 (10:06→10:10)
[2019-11-13] MEDS ORDERED: PROPOFOL 20 ML IV ONE (10:06)
[2019-11-13] MEDS ORDERED: ONDANSETRON PF 4 MG/2 ML VIAL. ONE (10:07)
[2019-11-13] MEDS ORDERED: DEXAMETHASONE SOD PHOS 20 MG/5 ML VIAL. ONE (10:07)
[2019-11-13] MEDS ORDERED: DESFLURANE > 120 MINUTES IH ONE (10:24)
[2019-11-13] MEDS ORDERED: GLYCOPYRROLATE 1 MG/5 ML VIAL. ONE (10:56)
[2019-11-13] MEDS ORDERED: ePHEDrine PF IN SALINE 50 MG/10 ML SYRINGE. IV ONE (11:20)
[2019-11-13] MEDS ORDERED: 0.9 % SODIUM CHLORIDE 20 ML VIAL. IJ ONE ×2 (13:26→13:27)
[2019-11-13] MEDS ORDERED: CALCIUM CARBONATE 500 MG TAB.CHEW PO PRN (13:45)
[2019-11-13] MEDS ORDERED: 0.9 % SODIUM CHLORIDE 10 ML DISP.SYRIN. IV PRN (13:45)
[2019-11-13] MEDS ORDERED: ONDANSETRON PF 4 MG/2 ML VIAL. IVP PRN (13:45)
[2019-11-13] MEDS ORDERED: ACETAMINOPHEN 325 MG TABLET. PO PRN (13:45)
[2019-11-13] MEDS ORDERED: MAG HYDROX/ALUMINUM HYD/SIMETH 30 ML ORAL.SUSP PO PRN (13:45)
[2019-11-13] MEDS ORDERED: MAGNESIUM HYDROXIDE 2,400 MG/30 ML ORAL.SUSP. PO PRN (13:45)
[2019-11-13] MEDS ORDERED: diphenhydrAMINE HCL 25 MG CAPSULE PO PRN (13:45)
[2019-11-13] MEDS ORDERED: oxyCODONE/APAP 5/325 1 TAB TABLET PO PRN (13:45)
[2019-11-13] MEDS ORDERED: ALBUTEROL SULFATE 2.5 MG/3 ML NEBU. NEB PRN (13:45)
[2019-11-13] MEDS ORDERED: KETOROLAC 30 MG/ML VIAL. ONE (14:57)
[2019-11-13] MEDS ORDERED: fentaNYL PF VIAL 100 MCG/2 ML VIAL ONE (14:58)
[2019-11-13] MEDS ORDERED: ceFAZolin SODIUM IV Push 1 GM VIAL. IVP SCH (15:00)
[2019-11-13] MEDS ORDERED: IPRATRPIUM/ALBUTEROL 0.5/2.5MG 3 ML NEBU. ONE (15:31)
[2019-11-13] MEDS ORDERED: IPRATRPIUM/ALBUTEROL 0.5/2.5MG 3 ML NEBU. NEB ONE (15:45)
[2019-11-13] MEDS ORDERED: DEXAMETHASONE SOD PHOS 20 MG/5 ML VIAL. IV ONE (16:15)
[2019-11-13] MEDS: oxyCODONE/APAP 5/325 1 TAB TABLET PO PRN (17:56)
[2019-11-13] MEDS: POTASSIUM CL 20MEQ D5-0.45NACL 1,000 ML IV SCH ×2 (17:57→22:33)
--- NOTE | 2019-11-13 18:19 | NUR ---
Patient arrived around 1700 from PACU in a bed. Family at bedside. He was on oxygen at 2L upon admission but shortly after got up and went to the restroom and got dressed. When rechecked he was 98% on room air and kept on room air. IV infusing properly in right hand. Dressings to lower back with small amount of bloody drainage present. Pain rated at a 7 but patient states a 7-8 is comfortable to him. He reports numbness in his left upper thigh which was there prior and the doctor is aware. LSO order faxed to [facility] and called to notify as well. Will continue to monitor.
[2019-11-13] MEDS: ceFAZolin SODIUM IV Push 1 GM VIAL. IVP SCH (19:00)
[2019-11-13] MEDS: fentaNYL PF VIAL 100 MCG/2 ML VIAL IVP PRN (20:11)
[2019-11-13] MEDS: METHOCARBAMOL 750 MG TABLET PO SCH (21:19)
[2019-11-13] MEDS: DOCUSATE SODIUM 100 MG CAPSULE. PO SCH (21:19)
[2019-11-14] MEDS: fentaNYL PF VIAL 100 MCG/2 ML VIAL IVP PRN ×2 (00:45→11:53)
[2019-11-14] MEDS: oxyCODONE/APAP 5/325 1 TAB TABLET PO PRN ×2 (02:05→06:23)
[2019-11-14 03:00] VITALS: BP 157/58
[2019-11-14] MEDS: ceFAZolin SODIUM IV Push 1 GM VIAL. IVP SCH ×2 (03:38→11:50)
[2019-11-14 07:00] VITALS: BP 124/67
[2019-11-14] MEDS ORDERED: PANTOPRAZOLE 40 MG TABLET.DR. PO SCH (07:30)
[2019-11-14] MEDS: DOCUSATE SODIUM 100 MG CAPSULE. PO SCH (08:36)
[2019-11-14 08:38] VITALS: BP 124/67
[2019-11-14] MEDS: METHOCARBAMOL 750 MG TABLET PO SCH (08:38)
[2019-11-14] MEDS ORDERED: ASPIRIN CHEWABLE 81 MG TABLET. PO SCH (09:00)
[2019-11-14] MEDS ORDERED: MULTIVITAMIN with MINERAL TABLET. PO SCH (09:00)
[2019-11-14] MEDS ORDERED: CRANBERRY EXTRACT 4200 MG PO SCH (09:00)
[2019-11-14] MEDS ORDERED: CHOLECALCIFEROL (VITAMIN D3) 1,000 UNIT TABLET PO SCH (09:00)
[2019-11-14] MEDS ORDERED: hydroCHLOROthiazide 25 MG TABLET PO SCH (09:00)
[2019-11-14] MEDS ORDERED: ATORVASTATIN CALCIUM 20 MG TABLET PO SCH (09:00)
[2019-11-14] MEDS ORDERED: LISINOPRIL 20 MG TABLET PO SCH (09:00)
[2019-11-14] MEDS ORDERED: amLODIPine BESYLATE 5 MG TABLET PO SCH (09:00)
--- NOTE | 2019-11-14 09:14 | NUR ---
SW following. Discussed with RN, pt is from home with . RN advised no SW needs at this time. SW will continue to follow.
[2019-11-14] MEDS ORDERED: DOCU-153 PO (12:20)
[2019-11-14] MEDS ORDERED: OXYC1TAB15 PO (12:20)
[2019-11-14] MEDS ORDERED: METH750T2 PO (12:20)
--- NOTE | 2019-11-14 12:21 | DISCH ---
DISCHARGE INSTRUCTIONS Condition on Discharge Condition on Discharge: Stable Activity After Discharge Activity Instructions for Disc: Activity as tolerated, Avoid exertion Other activity instructions: no driving for a week Bathing Instructions: Shower-keep dressing dry Lifting Instructions after Dis: No heavy lifting, No pulling or pushing, Do not lift >10 pounds Driving Instructions after Dis: Do not drive Diet after Discharge Diet after Discharge: Regular Additional Diet Restrictions: resume home diet Wound Incision Care Wound/Incision Care: Ice to area for comfort Other wound/incision instructi: may remove dressing in 48 hours if dry, leave steri strips on, no soaking Contacting the DRDavid after DC Call your doctor for: Concerns you may have Follow-Up Follow up with: Dr. Collins's nurse in 2 weeks [phone] DARRYN COLLINS MD Nov 14, 2019 12:21
--- NOTE | 2019-11-14 12:23 | PDOC ---
PROGRESS NOTES Subjective Subjective pod #1 Ambulating in [place] and room left lateral thigh pain Objective Objective Vital Signs Date Time Temp Pulse Resp B/P (MAP) Pulse Ox O2 Delivery O2 Flow Rate FiO2 11/14/19 11:53 Room Air 11/14/19 08:38 63 124/67 11/14/19 07:30 100 11/14/19 07:00 98.4 18 98.4 11/13/19 17:00 2.0 Intake and Output 11/14/19 07:00 Intake Total 1000 ml Output Total 500 ml Balance 500 ml IV Total 1000 ml Output Urine Total 400 ml Estimated Blood Loss 100 ml # Voids 2 Physical Exam General: Alert, Oriented X3, Cooperative, No acute distress MUSCULOSKELETAL: Other (VAZQUEZ) Neuro: Normal speech, Other Skin: Other (dressing dry , inact, flat. has been reinforced) Plan Plan of Care dc home f/u 2 weeks d/w RN Comment Review of Relevant I have reviewed the following items emeli (where applicable) has been applied. Medications Current Medications Ondansetron HCl (Zofran) 4 mg PRN Q6HRS PRN IV NAUSEA/VOMITING; Start 11/13/19 at 07:00; Stop 11/13/19 at 18:00; Status DC Fentanyl Citrate (Fentanyl 2ml Vial) 25 mcg PRN Q5MIN PRN IV MILD PAIN 1-3; Start 11/13/19 at 07:00; Stop 11/13/19 at 18:00; Status DC Fentanyl Citrate (Fentanyl 2ml Vial) 50 mcg PRN Q5MIN PRN IV MODERATE TO SEVERE PAIN; Start 11/13/19 at 07:00; Stop 11/13/19 at 18:00; Status DC Ringer's Solution 1,000 ml @ 30 mls/hr Q24H IV ; Start 11/13/19 at 07:00; Stop 11/13/19 at 18:59; Status DC Lidocaine HCl (Xylocaine-Mpf 1% 2ml Vial) 2 ml PRN 1X PRN ID PRIOR TO IV START; Start 11/13/19 at 07:00; Stop 11/13/19 at 18:00; Status DC Prochlorperazine Edisylate (Compazine) 5 mg PACU PRN PRN IV NAUSEA, MRX1; Start 11/13/19 at 07:00; Stop 11/13/19 at 18:00; Status DC Bacitracin 12959 unit/Sodium Chloride 1,000 ml @ 1,000 mls/hr 1X ONCE IRR Last administered on 11/13/19 11:31; Start 11/13/19 at 08:00; Stop 11/13/19 at 08:59; Status DC Vancomycin HCl 250 ml @ 250 mls/hr 1X PREOP PRN IV PRIOR TO SURGERY Last administered on 11/13/19at 10:35; Start 11/13/19 at 08:00; Stop 11/13/19 at 14:03; Status DC Gelatin (Gelfoam Size 100) 1 each STK-MED ONCE .ROUTE Last administered on 11/13/19 11:31; Start 11/13/19 at 07:27; Stop 11/13/19 at 07:27; Status DC Bupivacaine HCl/ Epinephrine Bitart (Sensorcain-Epi 0.5%-1:[id number] Mpf) 30 ml STK-MED ONCE .ROUTE Last administered on 11/13/19 11:31; Start 11/13/19 at 07:27; Stop 11/13/19 at 07:27; Status DC Ketorolac Tromethamine (Toradol Im) 60 mg STK-MED ONCE .ROUTE Last administered on 11/13/19 11:31; Start 11/13/19 at 07:27; Stop 11/13/19 at 07:27; Status DC Thrombin 20,000 unit STK-MED ONCE TP Last administered on 11/13/19 11:31; Start 11/13/19 at 07:27; Stop 11/13/19 at 07:28; Status DC Cefazolin Sodium/ Dextrose 50 ml @ 100 mls/hr 1X ONCE IV Last administered on 11/13/19at 11:25; Start 11/13/19 at 08:45; Stop 11/13/19 at 09:14; Status DC Rocuronium [place] (Zemuron) 50 mg STK-MED ONCE .ROUTE ; Start 11/13/19 at 09:57; Stop 11/13/19 at 09:58; Status DC Remifentanil HCl (Ultiva) 2 mg STK-MED ONCE IV ; Start 11/13/19 at 10:00; Stop 11/13/19 at 10:00; Status DC Propofol 50 ml @ As Directed STK-MED ONCE IV ; Start 11/13/19 at 10:00; Stop 11/13/19 at 10:00; Status DC Propofol 20 ml @ As Directed STK-MED ONCE IV ; Start 11/13/19 at 10:06; Stop 11/13/19 at 10:06; Status DC Lidocaine HCl (Lidocaine Pf 2% Vial) 5 ml STK-MED ONCE .ROUTE ; Start 11/13/19 at 10:06; Stop 11/13/19 at 10:06; Status DC Phenylephrine HCl (Td-Synephrine Inj) 10 mg STK-MED ONCE .ROUTE ; Start 11/13/19 at 10:06; Stop 11/13/19 at 10:07; Status DC Dexamethasone Sodium Phosphate (Decadron) 20 mg STK-MED ONCE .ROUTE ; Start 11/13/19 at 10:07; Stop 11/13/19 at 10:07; Status DC Ondansetron HCl (Zofran) 4 mg STK-MED ONCE .ROUTE ; Start 11/13/19 at 10:07; Stop 11/13/19 at 10:07; Status DC Phenylephrine HCl (Td-Synephrine Inj) 10 mg STK-MED ONCE .ROUTE ; Start 11/13/19 at 10:10; Stop 11/13/19 at 10:10; Status DC Desflurane (Suprane) 90 ml STK-MED ONCE IH ; Start 11/13/19 at 10:24; Stop 11/13/19 at 10:25; Status DC Glycopyrrolate (Robinul) 1 mg STK-MED ONCE .ROUTE ; Start 11/13/19 at 10:56; Stop 11/13/19 at 10:56; Status DC Ephedrine Sulfate (ePHEDrine PF IN SALINE SYRINGE) 50 mg STK-MED ONCE IV ; Start 11/13/19 at 11:20; Stop 11/13/19 at 11:20; Status DC Propofol 50 ml @ As Directed STK-MED ONCE IV ; Start 11/13/19 at 11:29; Stop 11/13/19 at 11:29; Status DC Remifentanil HCl (Ultiva) 2 mg STK-MED ONCE IV ; Start 11/13/19 at 13:25; Stop 11/13/19 at 13:26; Status DC Sodium Chloride (SODIUM CHLORIDE 20ml) 20 ml STK-MED ONCE IJ ; Start 11/13/19 at 13:26; Stop 11/13/19 at 13:26; Status DC Sodium Chloride (SODIUM CHLORIDE 20ml) 20 ml STK-MED ONCE IJ ; Start 11/13/19 at 13:27; Stop 11/13/19 at 13:28; Status DC Propofol 50 ml @ As Directed STK-MED ONCE IV ; Start 11/13/19 at 13:32; Stop 11/13/19 at 13:32; Status DC Albuterol Sulfate (Ventolin Neb Soln) 2.5 mg PRN Q6HRS PRN NEB SHORTNESS OF BREATH; Start 11/13/19 at 13:45 Amlodipine Besylate (Norvasc) 5 mg DAILY PO Last administered on 11/14/19at 08:37; Start 11/14/19 at 09:00 Aspirin (Children'S Aspirin) 81 mg DAILY PO Last administered on 11/14/19at 08:36; Start 11/14/19 at 09:00 Atorvastatin Calcium (Lipitor) 20 mg DAILY PO Last administered on 11/14/19at 08:38; Start 11/14/19 at 09:00 Vitamin D (Vitamin D3) 1,000 unit DAILY PO Last administered on 11/14/19at 08:38; Start 11/14/19 at 09:00 Non-Formulary Medication (Cranberry Extract (Cranberry)) 4,200 mg DAILY PO ; Start 11/14/19 at 09:00; Status UNV Lisinopril (Prinivil) 20 mg DAILY PO Last administered on 11/14/19at 08:38; Start 11/14/19 at 09:00 Multivitamins (Thera M Plus) 1 tab DAILY PO Last administered on 11/14/19at 08:38; Start 11/14/19 at 09:00 Pantoprazole Sodium (Protonix) 40 mg DAILYAC PO Last administered on 11/14/19at 07:17; Start 11/14/19 at 07:30 Acetaminophen (Tylenol) 650 mg PRN Q6HRS PRN PO MILD PAIN / TEMP; Start 11/13/19 at 13:45 Al Hydroxide/Mg Hydroxide (Mylanta Plus Xs) 30 ml PRN Q3HRS PRN PO HEARTBURN / GAS; Start 11/13/19 at 13:45 Calcium Carbonate/ Glycine (Tums) 500 mg PRN Q3HRS PRN PO INDIGESTION Last administered on 11/14/19at 07:17; Start 11/13/19 at 13:45 Diphenhydramine HCl (Benadryl) 25 mg PRN Q6HRS PRN PO ITCHING; Start 11/13/19 at 13:45 Sodium Chloride (Normal Saline Flush) 3 ml QSHIFT PRN IV AFTER MEDS AND BLOOD DRAWS; Start 11/13/19 at 13:45 Potassium Chloride/Dextrose/ Sod Cl 1,000 ml @ 75 mls/hr [id number] IV Last administered on 11/13/19at 17:57; Start 11/13/19 at 16:00 Oxycodone/ Acetaminophen (Percocet 5/325) 1 tab PRN Q4HRS PRN PO MILD PAIN, 1ST CHOICE; Start 11/13/19 at 13:45 Oxycodone/ Acetaminophen (Percocet 5/325) 2 tab PRN Q4HRS PRN PO MODERATE PAIN, SEVERE PAIN Last administered on 11/14/19at 06:23; Start 11/13/19 at 13:45 Methocarbamol (Robaxin) 750 mg TID PO Last administered on 11/14/19at 08:38; Start 11/13/19 at 21:00 Docusate Sodium (Colace) 100 mg BID PO Last administered on 11/14/19at 08:36; Start 11/13/19 at 21:00 Magnesium Hydroxide (Milk Of Magnesia) 2,400 mg PRN Q12HR PRN PO CONSTIPATION; Start 11/13/19 at 13:45 Ondansetron HCl (Zofran) 4 mg PRN Q6HRS PRN IVP NAUESA, 1ST CHOICE; Start 11/13/19 at 13:45 Cefazolin Sodium (Ancef) 1 gm Q8H IVP ; Start 11/13/19 at 15:00; Stop 11/13/19 at 17:55; Status DC Fentanyl Citrate (Fentanyl 2ml Vial) 50 mcg PRN Q2HR PRN IVP PAIN Last administered on 11/14/19at 11:53; Start 11/13/19 at 13:45 Hydrochlorothiazide (Hydrodiuril) 25 mg DAILY PO Last administered on 11/14/19at 08:38; Start 11/14/19 at 09:00 Ketorolac Tromethamine (Toradol 30mg Vial) 30 mg STK-MED ONCE .ROUTE ; Start 11/13/19 at 14:57; Stop 11/13/19 at 14:57; Status DC Fentanyl Citrate (Fentanyl 2ml Vial) 100 mcg STK-MED ONCE .ROUTE ; Start 11/13/19 at 14:58; Stop 11/13/19 at 14:59; Status DC Albuterol/ Ipratropium (Duoneb) 3 ml STK-MED ONCE .ROUTE ; Start 11/13/19 at 15:31; Stop 11/13/19 at 15:32; Status DC Albuterol/ Ipratropium (Duoneb) 3 ml 1X ONCE NEB Last administered on 11/13/19at 15:41; Start 11/13/19 at 15:45; Stop 11/13/19 at 15:46; Status DC Dexamethasone Sodium Phosphate (Decadron) 10 mg 1X ONCE IV ; Start 11/13/19 at 16:15; Stop 11/13/19 at 16:16; Status DC Cefazolin Sodium (Ancef) 1 gm Q8H IVP Last administered on 11/14/19at 11:50; Start 11/13/19 at 19:00; Stop 11/14/19 at 11:01; Status DC Active Scripts Active Reported Hydrocodone-Apap 7.5-325 (Hydrocodone Bit/Acetaminophen) 1 Tab Tablet 1 Tab PO PRN Q6HRS PRN Omeprazole 20 Mg Tablet.dr 20 Mg PO DAILY Atorvastatin Calcium 20 Mg Tablet 20 Mg PO DAILY Amlodipine Besylate 5 Mg Tablet 5 Mg PO DAILY Proair Hfa Inhaler (Albuterol Sulfate) 8.5 Gm Hfa.aer.ad 1 Puff INH PRN Q6HRS PRN Aspirin 81 Mg Tab.chew 1 Tab PO DAILY Cranberry (Cranberry Extract) 500 Mg Capsule 4,200 Mg PO DAILY Meloxicam 15 Mg Tablet 1 Tab PO DAILY Lisinopril-Hctz 20-25 Mg Tab (Lisinopril/Hydrochlorothiazide) 1 Each Tablet 1 Tab PO DAILY Centrum Silver Tablet (Multivits-Min/Fa/Lycopene/Lut) 1 Each Tablet 1 Each PO DAILY Vitamin D3 (Cholecalciferol (Vitamin D3)) 1,000 Unit Tablet 1 Tab PO DAILY Vitals/I & O Vital Sign - Last 24 Hours 11/13/19 11/13/19 11/13/19 11/13/19 15:25 15:25 15:35 15:45 Temp 99.1 99.1 99.1 99.1 99.1 99.1 Pulse 126 122 132 Resp 18 18 18 B/P (MAP) 74/64 87/62 73/56 Pulse Ox 98 98 100 O2 Delivery Simple Mask Mask Simple Mask Simple Mask O2 Flow Rate 10 10 10 10 11/13/19 11/13/19 11/13/19 11/13/19 16:00 16:15 16:22 16:30 Temp 99.1 99.1 99.1 99.1 99.1 99.1 Pulse 132 122 114 Resp 18 18 18 B/P (MAP) 93/73 91/68 101/71 Pulse Ox 99 94 93 O2 Delivery Room Air Room Air Room Air Room Air 11/13/19 11/13/19 11/13/19 11/13/19 16:45 17:00 17:15 17:30 Temp 99.1 97.9 97.9 97.9 99.1 97.9 97.9 97.9 Pulse 104 95 106 113 Resp 18 18 18 18 B/P (MAP) 106/65 105/69 (81) 126/54 (78) 117/72 (87) Pulse Ox 95 98 98 98 O2 Delivery Nasal Cannula Room Air Room Air Room Air O2 Flow Rate 2 2.0 11/13/19 11/13/19 11/13/19 11/13/19 17:30 17:45 17:56 18:00 Temp 98.1 98.1 98.1 98.1 Pulse 114 109 Resp 18 18 B/P (MAP) 101/79 (86) 110/67 (81) Pulse Ox 97 98 97 O2 Delivery Room Air Room Air Room Air Room Air 11/13/19 11/13/19 11/13/19 11/13/19 18:29 18:56 20:00 20:00 Temp 98.1 98.1 98.1 98.1 Pulse 112 105 Resp 18 18 B/P (MAP) 106/72 (83) 125/82 (96) Pulse Ox 98 98 96 O2 Delivery Room Air Room Air Room Air Room Air 11/13/19 11/13/19 11/13/19/9/20 20:11 20:16 20:45 21:00 Temp 98.2 98.2 Pulse 100 96 Resp 18 B/P (MAP) 113/76 (88) 128/73 (91) Pulse Ox 96 94 O2 Delivery Room Air Room Air 11/13/19 11/14/19 11/14/19 11/14/19 23:00 00:45 01:15 02:05 Temp 97.8 97.8 Pulse 66 Resp 20 B/P (MAP) 101/64 (76) Pulse Ox 98 O2 Delivery Room Air Room Air Room Air Room Air 11/14/19 11/14/19 11/14/19 11/14/19 03:00 03:10 06:23 07:00 Temp 98.4 98.4 Pulse 86 63 Resp 18 B/P (MAP) 157/58 (91) 124/67 (86) Pulse Ox 96 95 O2 Delivery Room Air Room Air Room Air Room Air 11/14/19 11/14/19 11/14/19 11/14/19 07:30 07:36 07:36 08:37 Pulse 63 B/P (MAP) 124/67 Pulse Ox 100 O2 Delivery Room Air Room Air Room Air 11/14/19 11/14/19 08:38 11:53 Pulse 63 B/P (MAP) 124/67 O2 Delivery Room Air Intake and Output 11/13/19 11/13/19 11/14/19 15:00 23:00 07:00 Intake Total 1000 ml Output Total 500 ml Balance 1000 ml -500 ml DARRYN COLLINS MD Nov 14, 2019 12:23
--- NOTE | 2019-11-14 13:07 | NUR ---
[facility] contacted re: LSO brace. gloria state they just received faxed information.They stated they cannot be to the unit approx. 1500. Pt. stated he could go to the [facility] office to picket [employer] brace. [facility] stated pt could come to office to pick it up. Pt. discharged to home with Rx, verbalized understanding of discharge instructions. Back dressing CDI. Pt. instructed to go to [facility] to obtain LSO brace.
--- NOTE | 2019-11-15 16:19 | OP ---
DATE OF SURGERY: 11/13/2019 PREOPERATIVE DIAGNOSES: Spondylolisthesis with motion and severe foraminal narrowing with radiculopathy, L5-S1, left. POSTOPERATIVE DIAGNOSES: Spondylolisthesis with motion and right severe foraminal narrowing with radiculopathy, L5-S1, left. OPERATION PERFORMED: 1. Transfacet decompression, left L5-S1. 2. Posterior instrumentation, L5-S1, posterolateral fusion, L5-S1. The operation was done with multimodality monitoring including EMG, SSEP, fluoroscopy and microscopic dissection, BrainLAB guidance was also used. NAILHEAD OPERATOR: NATALYA Craft assisted with the surgery. She assisted with the instrumentation and fusion as well as the closure. OPERATIVE INDICATIONS: The patient is a pleasant 59-year-old man who developed severe intractable back and left leg pain, which failed conservative measures. On imaging studies, he had above-mentioned findings and I recommended a decompression on the left at L5-S1 combined with an instrumented lumbar fusion. He understood the surgery and the risks. He understood the technique of the operation and he wished to go ahead. DESCRIPTION OF PROCEDURE: Following general endotracheal anesthesia, the patient was positioned prone on the Jose table. Lumbar region prepped and draped in standard fashion. ABRIL hose and AV impulse boots were applied for DVT prophylaxis. A microscope was draped. Fluoroscopy was draped and brought into field. Monitoring was established. Ancef 2 grams was given less than 1 hour prior to initiation of surgery. Using fluoroscopic iliac posts were first placed into the iliac crest on the right. I then made a right paramedian incision directly over the facets and pedicles at L5-S1. I dissected down through skin and subcutaneous tissue and placed self-retaining retractors. I then using anatomic landmarks plus the BrainLAB system drilled into the posterior aspect of the pedicles of L5 and S1. I passed the black ball, followed by ball tip probe, followed by tap. During this time, I excoriated the lateral facet and transverse processes and packed allograft bone into that location. After I aspirated 20 mL of bone marrow from the left iliac crest and used this to mix with the allograft bone. With allograft bone was in position, again with stimulated EMG monitoring I placed using the [place] system, 6.5 x 40 screws into L5 and S1. The enmanuel was placed 40 mm nuts were applied. I then went to the right side. In a similar fashion, I prepared the pedicles by first passing the black ball, followed by ball tip probe, followed by tap again at every step on both sides I used stimulated EMG monitoring and there were no problems with the positioning of with these maneuvers. I did not yet. I covered those openings with bone wax. I did excoriate laterally and placed allograft bone in the left gutter. I brought in the microscope and I began to drill a laminotomy and then I worked laterally five root out along the foramen. There was considerable scar as well as a fragmented bone and I trimmed this material away as I worked, I was able to fully decompress the region. I then placed pedicle screws in L5 and S1, again with stimulated monitoring. The rods were placed, the nuts were tightened sequentially. X-rays showed good positioning of the construct and a significant reduction of spondylolisthesis. I was very pleased. I irrigated copiously, then copiously with antibiotic solution. I closed the wounds in layers with absorbable suture. Skin was closed with 4-0 subcuticular stitch. The operation went very well. DARRYN COLLINS MD DR: DAYDAY/velasquez JOB#: [id number] / [id number]
== END 2019-11-14 13:15 | disposition home or self-care (01) | DRG 460 ==
LOC: OPSVCIP 07:45 → 4 NORTH 17:00
PROVIDERS: ADMIT Neurological Surgery; ATTEND Neurological Surgery
PROC: 4A11X4G Monitoring of Peripheral Nervous Electrical Activity, Intraoperative, External Approach (ICD-10-PCS; 2019-11-13)
PROC: 07DR0ZZ Extraction of Iliac Bone Marrow, Open Approach (ICD-10-PCS; 2019-11-13)
PROC: 0SG30K1 Fusion of Lumbosacral Joint with Nonautologous Tissue Substitute, Posterior Approach, Posterior Column, Open Approach (ICD-10-PCS; principal; 2019-11-13 10:30)
DX: M43.17 Spondylolisthesis, lumbosacral region (principal); I10 Essential (primary) hypertension; M54.17 Radiculopathy, lumbosacral region; M19.90 Unspecified osteoarthritis, unspecified site; Z82.49 Family history of ischemic heart disease and other diseases of the circulatory system; Z87.891 Personal history of nicotine dependence; Z95.5 Presence of coronary angioplasty implant and graft; Z79.899 Other long term (current) drug therapy
CPT/HCPCS: 36415; 72131; 76000; 86850; 86900; 86901; 94760; 99406; A7015; C1713; J0171; J0690; J0696; J1100; J1885; J2001; J2370; J2405; J2704; J3010; J3370; J3480; J3490; J7030; J7120; G0378

== ENCOUNTER → 2019-12-28 | Outpatient (CLI) | payer BC ==
[~2019-12-28] MED LIST changes: -BUPIVACAINE-EPI 0.5%-1:200000 MPF 30 ML VIAL. ONE; +DOCU-153 PO; -GELATIN SPONGE SIZE 100. ONE; -IV RINGERS,LACTATED 1000ML 1,000 ML IV SCH; -KETOROLAC 60 MG/2 ML VIAL. ONE; -LIDOCAINE 1% PF 2 ML VIAL. ID PRN; +METH750T2 PO; -ONDANSETRON PF 4 MG/2 ML VIAL. IV PRN; -PROCHLORPERAZINE 10 MG/2 ML VIAL. IV PRN; -THROMBIN TOPICAL 20,000 UNIT SPRAY.SYRN KIT TP ONE; -fentaNYL PF VIAL 100 MCG/2 ML VIAL IV PRN
--- NOTE | 2019-12-28 09:29 | RAD ---
Study: CT lumbar spine without contrast INDICATION: Lumbar radiculopathy. COMPARISON: 11/13/2019 TECHNIQUE: Axial CT imaging of the lumbar spine performed without the use of intravenous contrast. One or more of the following individualized dose reduction techniques were utilized for this examination: 1. Automated exposure control 2. Adjustment of the mA and/or kV according to patient size 3. Use of iterative reconstruction technique. FINDINGS: Interval dorsal pedicle screw and enmanuel fixation spanning L5-S1. The hardware is intact and without loosening. The pedicle screws are well-positioned. Laminotomy defect on the left at L5 with adjacent changes of partial facetectomy as well. Bone grafting material without solid osseous bridging at this time. Redemonstrated grade 1 anterolisthesis of L5 on S1 in the setting of bilateral pars intraarticularis defects. No change in the degree of disc space narrowing at L5-S1. No newly seen vertebral body height loss. Unchanged alignment above the operative level. Ill-defined dorsal subcutaneous edema-like attenuation around the operative site. No discrete fluid collection. No evidence on this unenhanced CT for a tracking fluid collection towards the spinal canal. Vascular calcifications otherwise within normal limits visualized abdominal and pelvic structures. T12-L1: Superior endplate Schmorl's node at T12. No osseous encroachment on the central canal or neural foramina. L1-L2: No osseous encroachment on the central canal or neural foramina. L2-L3: Mild disc bulge. No significant osseous encroachment on the central canal or neural foramina. L3-L4: Disc bulge eccentric to the left. Endplate osteophytic ridging eccentric to the left. Mild neural foraminal encroachment on the left. No evidence for significant central canal or right neural foraminal stenosis. L4-L5: No osseous encroachment on the central canal or neural foramina. L5-S1: Operative level. Grade 1 anterolisthesis with disc uncovering. Pars defects. Endplate osteophytic ridging more pronounced on the right. Moderate neural foraminal encroachment on the right at L5-S1 in the setting of vertebral body slippage and endplate ridging. Minimal encroachment on the left neural foramen. IMPRESSION: 1. Interval operative changes of posterior instrumented fusion and partial dorsal decompression at L5-S1. The hardware is intact and normally positioned. No features of loosening. No concerning soft tissue abnormality at the surgical site. 2. No change in vertebral body height or alignment with again grade 1 anterolisthesis of L5 on S1. 3. As above, moderate osseous encroachment on the right neural foramen at L5-S1. Mild neural foraminal encroachment on the left at L3-L4 relating to a left eccentric disc bulge and endplate osteophytic ridging. Electronically signed by: ROHAN DIGGS MD (12/28/2019 9:26 AM) [id number]
== END | disposition home or self-care (01) ==
LOC: CT 08:33
PROVIDERS: ATTEND Neurological Surgery
DX: M51.16 Intervertebral disc disorders with radiculopathy, lumbar region (principal)
CPT/HCPCS: 72131

== ENCOUNTER → 2020-01-01 | Outpatient (CLI) | payer BC ==
--- NOTE | 2020-01-01 14:10 | RAD ---
MRI Lumbar Spine without contrast History: Lumbar radiculopathy Technique: Multiplanar, multi sequential noncontrast MR imaging was performed of the lumbar spine. Comparison: July 12, 2019 Findings: Lumbar vertebral body stature is unchanged. There are again small Schmorl's nodes superiorly of L3 and T12. There is mild edema of the anterior superior corner of L3 somewhat increased. There is again grade 1 anterior spondylolisthesis at L5-S1 at which there is spondylolysis. There is now posterolateral fusion hardware with bilateral pedicle screws at L5-S1. Exam does not accurately evaluate integrity of hardware. There is again moderate to severe degenerative disc disease greater posteriorly L5-S1, mild disc disc disease L2-3 and to lesser degree L3-4. Conus terminates at L1. There is nonspecific edema of the posterior subcutaneous fat of the lower back. L1-L2: Neural foramina and spinal canal are adequate. L2-L3: There is minimal facet degenerative change. There is negligible disc osteophyte complex, very shallow protrusion in the inferior left neural foramen as seen previously. Neural foramina and spinal canal are overall adequate. L3-L4: There is minimal disc osteophyte complex, more eccentric to the inferior left neural foramen. There is again also likely small protrusion in the inferior left neural foramen and proximal left extraforaminal region near the undersurface exiting left L3 nerve root in the proximal extraforaminal region. There is overall mild narrowing of the left neural foramen greater distally. Right neural foramen is overall adequate. Spinal canal is adequate. L4-L5: Spinal canal and neural foramina are adequate. L5-S1: Spinal canal is adequate. There is mild partial uncovering of the posterior aspect of the disc due to spondylolisthesis. There is mild left and mild to moderate right neural foramina compromise with contact undersurface exiting right L5 nerve root by disc osteophyte complex/partially covered disc. Impression: 1. There is no significant lumbar spinal stenosis. There is now posterolateral fusion hardware L5-S1 at which there is grade 1 anterior spondylolisthesis and L5 spondylolysis. There is again degenerative disc disease greatest at L5-S1. There is neural foramina compromise as stated greatest on the right at L5-S1. There is again contact of the extraforaminal left L3 nerve root at L3-4 by disc osteophyte complex and shallow protrusion. Electronically signed by: Regan Amanda MD (01/01/2020 2:07 PM) [id number]
== END | disposition home or self-care (01) ==
LOC: MRI 12:38
PROVIDERS: ATTEND Neurological Surgery
DX: M51.17 Intervertebral disc disorders with radiculopathy, lumbosacral region (principal); M51.45 Schmorl's nodes, thoracolumbar region; M43.17 Spondylolisthesis, lumbosacral region; M25.78 Osteophyte, vertebrae; M51.16 Intervertebral disc disorders with radiculopathy, lumbar region; M48.061 Spinal stenosis, lumbar region without neurogenic claudication
CPT/HCPCS: 72148

== ENCOUNTER → 2020-01-09 | Outpatient (CLI) | payer OTHER ==
--- NOTE | 2020-01-09 13:29 | PAIN ---
DATE OF SERVICE: 01/09/2020 PROGRESS NOTE FOR PAIN CLINIC DIAGNOSES: Lumbar radiculopathy with lumbar degenerative disk disease. HISTORY OF PRESENT ILLNESS: This is a 59-year-old male who returns for followup status post lumbar epidural steroid injection, last seen 08/31/2019. The patient has since had surgery about 2 months ago with lumbar fusion at L5-S1. The patient reports he did well after the surgery, but the pain is persistent in his left lower extremity. He has seen his neurosurgeon, who is recommending conservative therapies at this time, still significant radiculopathy in the left leg and following a L4-L5 dermatomal distribution. The patient did have a new MRI scan dated 01/01/2020 showing posterior lateral fusion hardware at L5-S1 with degenerative disk disease greatest at L5 with neural foraminal compromise with contact at the extraforaminal left L3 nerve root and L3-L4 by disk osteophyte complex and shallow protrusion. The patient reports significant fatigability of the left lower extremity. No overt motor loss, but very fatigued and very weak with activity with the left quadriceps. The patient reports it is aching, sharp, shooting across the back, tingling and burning in the legs, stabbing in the back, constant in the legs, severe, can be unbearable with activity, worse with walking, standing, changing positions. The patient has been taking oxycodone about 3 times a day, decreased the pain, which does help by about 60%. The patient reports the pain is a 10 on a scale of 10 at its worst over the past week, 8 on average and 8 at its least and is an 8 today. The patient reports no new motor or sensory deficits. No overt motor loss, but again significant fatigability of the left lower extremity, but not the right. PHYSICAL EXAMINATION: VITAL SIGNS: The patient's blood pressure is 130/86, pulse 76, respirations 18, temperature 98.3 degrees Fahrenheit, height is 5 feet 7 inches and weight is 186 pounds. GENERAL: The patient is awake, alert, oriented, appropriate, very pleasant demeanor. HEENT: Shows normocephalic, atraumatic. Extraocular movements are intact and symmetrical. Oral cavity: Mucous membranes moist and pink. Dentition is intact. NECK: Shows anterior throat supple without palpable lymphadenopathy noted. Swallow reflex symmetrical. CHEST Shows normal on expansion. Breath sounds are clear bilaterally. HEART: Shows S1, S2 clear. No murmurs auscultated. ABDOMEN: Soft, nontender, nondistended. No palpable organomegaly is noted. No rebound or guarding demonstrated. BACK: Shows spine grossly in the midline. Normal appearing thoracic kyphosis, some minor flattening of lumbar lordotic curvature. Lumbar paraspinous musculature symmetrical on inspection with a well-healed surgical scarring noted some slight flattening of lumbar lordotic curvature with palpation shows some moderate tenderness diffusely more on the left than the right, that is, in the low back with good rotational motion both laterally greater than 10 degrees right and left as well as extension greater than 10 degrees, forward flexion 45 degrees without significant increase in pain. EXTREMITIES: Lower extremities show deep tendon reflexes 1+ in the patellar and tendo calcaneus tendons. Motor exam is strong with 5/5 dorsiflexion, extension on the right and 4/5 on the left. Quadriceps and hamstring flexion 3-4 on the left, 5/5 on the right. Peripheral pulses are 1+ posterior tibia. No peripheral edema is noted bilaterally. PLAN: Options were discussed with the patient. The patient's old chart was reviewed as his current medication regimen updated. Current review of systems updated today as well. We will preauthorize the patient for a lumbar epidural steroid injection as he has significant radicular qualities in the left L4-L5 dermatomal distribution with recent MRI scan as noted. The patient has already done therapy, stretching and strengthening exercises on his own, Medrol Dosepak as well as taking oxycodone, all with only temporary relief. I would like to try interventional techniques as he has done well with these in the past and again with recommendations from his neurosurgeon to have lumbar epidural steroid injection. We will plan on the L4-L5 translaminar epidural injection for his L4-L5 dermatomal distribution radiculopathy. In the meantime, the patient will continue with stretching and strengthening exercises, maintain with oxycodone as written and exercise as tolerated. The patient will follow up in approximately 1 week. We will plan on lumbar epidural steroid injection at that time. CHARLIE DAVALOS MD DR: REBECCA/velasquez JOB#: [id number] / [id number]
== END | disposition home or self-care (01) ==
LOC: PNCL 08:20
PROVIDERS: ATTEND Anesthesiology
DX: M51.16 Intervertebral disc disorders with radiculopathy, lumbar region (principal)
CPT/HCPCS: G0463

== ENCOUNTER → 2020-01-23 | Outpatient (CLI) | payer OTHER ==
[~2020-01-23] MED LIST changes: +IOHEXOL 180 MG/ML 10 ML VIAL. ONE; +methylPREDNISolone ACETATE 40 MG/ML VIAL. ONE; +methylPREDNISolone ACETATE 80 MG/ML VIAL. ONE
--- NOTE | 2020-01-23 21:00 | PAIN ---
DATE OF SERVICE: 01/23/2020 PROGRESS NOTE FOR PAIN CLINIC DIAGNOSES: Lumbar radiculopathy with lumbar degenerative disk disease and lumbar post-laminectomy syndrome. HISTORY OF PRESENT ILLNESS: The patient is a 59-year-old male who returns for followup status post lumbar epidural steroid injections in the past, most recently had surgery with a lumbar fusion 11/12 of this year and has some significant pain still left over in the low back and left lower extremity, posterior lateral thigh, anterior medial thigh, medial lower leg as well. The patient reports it is a 9 on a scale of 10 at its worst over the past week, 9 on average, 9 at its least and is a 9 today. The patient reports it is aching, sharp, dull, tight, shooting, stabbing, burning, cramping, radiating, becoming severe and unbearable with activity, better with sitting or lying down, but does awaken him from sleep about every 4 hours. The patient reports no new motor or sensory deficits, no new bowel or bladder incontinence or other complaints, but still significant pain in low back, left lower extremity as previously. PHYSICAL EXAMINATION: VITAL SIGNS: The patient's blood pressure is 128/84, pulse 77, respirations 18, temperature is 98.5 degrees Fahrenheit, height is 5 feet 7 inches, weight is 185 pounds. GENERAL: The patient is awake, alert, oriented, appropriate, very pleasant demeanor. HEENT: Shows normocephalic, atraumatic. Extraocular movements are intact and symmetrical. Oral cavity: Mucous membranes moist and pink. Dentition is intact. NECK: Shows anterior throat supple without palpable lymphadenopathy noted. Swallow reflex symmetrical. CHEST: Shows normal on inspection. Breath sounds clear to auscultation bilaterally. HEART: Shows S1, S2 clear. No murmurs auscultated. ABDOMEN: Soft, nontender, nondistended. No palpable organomegaly is noted. No rebound or guarding demonstrated. BACK: Shows spine grossly in the midline. Normal appearing thoracic kyphosis and some well-healed surgical scarring with some minor flattening of lumbar lordotic curvature. Lumbar paraspinous muscle shows symmetrical on inspection, with palpation shows some moderate tenderness diffusely bilaterally, diffusely without significant radiation. The patient has good rotational motion both laterally as well as extension and flexion without increase in pain. EXTREMITIES: Lower extremities show deep tendon reflexes 1+ in the patellar and tendo calcaneus tendons. Motor exam is approximately 3-4 on a scale of 5 with left quadriceps flexion and 4/5 at the ankle on the left, 5/5 on the right with upper and lower leg. Peripheral pulses are 1+ posterior tibia. No peripheral edema is noted bilaterally. Options were discussed with the patient. The patient's old chart was reviewed as his current medication regimen updated. Current review of systems updated today as well and we will proceed with a lumbar epidural steroid injection today with fluoroscopic guidance. Risks were again discussed including, but not limited to bleeding, infection, possibility of epidural hematoma, subsequent neurological compromise, dural puncture, headaches, spinal cord and/or nerve damage, side effects of steroid medication and poor results regarding pain control. The patient understands and wished to proceed. The patient will return to clinic in approximately 2 weeks for followup. She was counseled on return appointment, activity level and side effects to be aware of. DIAGNOSES: Lumbar radiculopathy with lumbar degenerative disk disease and lumbar post-laminectomy syndrome. PROCEDURE: Lumbar epidural steroid injection, translaminar approach L4-L5 level using C-arm fluoroscopic guidance under sterile prep and drape using local anesthetic. MEDICATION INJECTED: A total of 120 mg Depo-Medrol plus 10 mL of preservative-free normal saline and 2 mL of contrast. CONDITION AT DISCHARGE: Stable. The patient tolerated the procedure well, had no complications. CHARLIE DAVALOS MD DR: REBECCA/velasquez JOB#: [id number] / [id number]
== END ==
LOC: PNCL 07:41
PROVIDERS: ATTEND Anesthesiology
DX: M51.16 Intervertebral disc disorders with radiculopathy, lumbar region (principal); M96.1 Postlaminectomy syndrome, not elsewhere classified
CPT/HCPCS: 62323; J1030; J1040; Q9965

== ENCOUNTER → 2020-02-07 | Outpatient (CLI) | payer OTHER ==
[~2020-02-07] MED LIST changes: -IOHEXOL 180 MG/ML 10 ML VIAL. ONE; -methylPREDNISolone ACETATE 40 MG/ML VIAL. ONE; -methylPREDNISolone ACETATE 80 MG/ML VIAL. ONE
--- NOTE | 2020-02-07 09:50 | PAIN ---
DATE OF SERVICE: 02/07/2020 PROGRESS NOTE FOR PAIN CLINIC DIAGNOSES: Lumbar radiculopathy with lumbar degenerative disk disease and lumbar post-laminectomy syndrome. HISTORY OF PRESENT ILLNESS: The patient is a 59-year-old male who returns for followup status post lumbar epidural steroid injection x 1, 01/23/2020. The patient reports about a 75% improvement initially for the first 3 weeks, the pain was reduced significantly. The patient reports about 50% overall now, but his left leg was doing much better. The patient reports almost no pain for the first week after the injection. After the second week about 75% improvement overall but the pain is returning now on the left low back and left lateral thigh, lateral anterior thigh, anterior medial thigh. The patient reports it is aching, sharp, dull, can be tight or shooting at times, but initially was doing much better, was increased distance walking, doing work activities, sleeping better and still sleeping very well at night, does not awaken him from sleep at night. The patient reports it is an aching pain in the low back with radiating pain returning in the left leg, but much significantly reduced since previous exam. The patient reports it is a 7 on a scale of 10 most times, average worst and least over the past week. Prior to that, was doing much better with pain rating from 0-10 about 1-2. PHYSICAL EXAMINATION: VITAL SIGNS: The patient's blood pressure is 121/85, pulse 72, respirations 18, temperature 98.7 degrees Fahrenheit, height is 5 feet 7 inches, weighs 178 pounds. GENERAL: The patient is awake, alert, oriented, appropriate, very pleasant demeanor. HEENT: Shows normocephalic, atraumatic. Extraocular movements are intact and symmetrical. Oral cavity: Mucous membranes moist and pink. Dentition is intact. NECK: Shows anterior throat supple without palpable lymphadenopathy noted. Swallow reflex symmetrical. CHEST: Shows normal on inspection. Breath sounds are clear. No rales, rhonchi or wheezes auscultated. HEART: Shows S1, S2 clear. No murmurs auscultated. ABDOMEN: Soft, nontender, nondistended. No palpable organomegaly is noted. No rebound or guarding demonstrated. BACK: Shows spine grossly in the midline. Normal-appearing thoracic kyphosis and flattening of lumbar lordotic curvature with well-healed surgical scarring noted x 2. Lumbar paraspinous muscle shows firm, but symmetrical without evidence of atrophy or hypertrophy. No specific trigger points, no specific radiation of pain bilaterally. The patient has good rotational motion of lumbar spine, both laterally, right and left as well as extension and flexion without significant difficulty or pain reported. EXTREMITIES: The patient's lower extremities show deep tendon reflexes 1+ in the patellar and tendo calcaneus tendons are equal. Motor exam is strong with 5/5 dorsiflexion, extension, quadriceps and hamstring flexion. Peripheral pulses are 1+ posterior tibial. No peripheral edema is noted bilaterally. Options were discussed with the patient. The patient's old chart was reviewed as his current medication regimen updated. Current review of systems updated as well and we will preauthorize the patient for a second lumbar epidural steroid injection. Still has clinical radiculopathy on the left in the L4-L5 dermatomal distribution. We will plan on translaminar approach L4-L5 level lumbar epidural steroid injection. Again, the patient is doing much better, about 75% improved for the first almost 3 weeks following the first injection with pain returning now in a radicular pattern on the left at L4-L5 is noted. The patient will continue doing stretching and strengthening exercises, also taking some anti-inflammatories p.r.n. basis, but much less than previous. The patient will return and we will plan on lumbar epidural steroid injection at that time. CHARLIE DAVALOS MD DR: REBECCA/velasquez JOB#: [id number] / [id number]
== END ==
LOC: PNCL 07:53
PROVIDERS: ATTEND Anesthesiology
DX: M51.16 Intervertebral disc disorders with radiculopathy, lumbar region (principal); M96.1 Postlaminectomy syndrome, not elsewhere classified
CPT/HCPCS: G0463

== ENCOUNTER → 2020-02-21 | Outpatient (CLI) | payer OTHER ==
[~2020-02-21] MED LIST changes: +IOHEXOL 180 MG/ML 10 ML VIAL. ONE; +methylPREDNISolone ACETATE 40 MG/ML VIAL. ONE; +methylPREDNISolone ACETATE 80 MG/ML VIAL. ONE
--- NOTE | 2020-02-21 10:26 | PAIN ---
DATE OF SERVICE: 02/21/2020 PROGRESS NOTE FOR PAIN CLINIC DIAGNOSES: Lumbar radiculopathy with lumbar degenerative disk disease and lumbar post-laminectomy syndrome. HISTORY OF PRESENT ILLNESS: The patient is a 59-year-old male who returns for followup status post lumbar epidural steroid injection x 1 with about 75% improvement. The patient reports the pain is returning now in the low back and into the left lower extremity, but again significantly improved from where it was. The patient reports it is a 6 on a scale of 10 at its worst, least and average and is a 6 today. The patient reports it is tingling, burning, stabbing in the back, radiating and shooting in the left lower extremity, posterior gluteus, posterolateral thigh, lateral anterior thigh, anterior medial thigh, sometimes in the medial calf, mostly just in the thigh. The patient reports it is a shooting pain, can be radiating and constant, severe at times with activity. The patient was waiting for preauthorization with insurance provider. He has obtained that now and would like to proceed with a second injection. The patient reports it generally does not awaken him from sleep at night, it is better with sitting or lying down, worse with walking, standing, changing positions. PHYSICAL EXAMINATION: VITAL SIGNS: The patient's blood pressure is 128/78, pulse 79, respirations 18, temperature is 97.5 degrees Fahrenheit, height is 5 feet 7 inches, weight is 175 pounds. GENERAL: The patient is awake, alert, oriented, appropriate, very pleasant demeanor. HEENT: Shows normocephalic, atraumatic. Extraocular movements are intact and symmetrical. Oral cavity shows mucous membranes moist and pink. Dentition is intact. NECK: Shows anterior throat supple without palpable lymphadenopathy noted. Swallow reflex symmetrical. CHEST: Shows normal on inspection. Breath sounds are clear bilaterally. HEART: Shows S1, S2 clear. No murmurs auscultated. ABDOMEN: Soft, nontender, nondistended. BACK: Shows spine grossly in the midline. Slight exaggeration of thoracic kyphosis with some significant flattening of lumbar lordotic curvature with well-healed surgical scarring noted. Lumbar paraspinous muscle shows symmetrical with inspection, with palpation shows some moderate tenderness diffusely throughout the upper, middle and lower distribution of paraspinous muscles, but only diffusely without radiation. The patient has good rotational motion of the lumbar spine both laterally as well as extension and flexion without exacerbation of pain. EXTREMITIES: Lower extremities show deep tendon reflexes 1+ in the patellar and tendo calcaneus tendons. Motor exam is approximately 4 on a scale of 5 on the left and 5/5 on the right with dorsiflexion, extension, quadriceps and hamstring flexion. Peripheral pulses are 1+. No peripheral edema bilaterally. Options were discussed with the patient. The patient's old chart was reviewed as his current medication regimen updated. Current review of systems updated today as well. We will proceed with a second in the series of lumbar epidural steroid injection today with fluoroscopic guidance. Risks were again discussed including, but not limited to bleeding, infection, possibility of epidural hematoma, subsequent neurological compromise, dural puncture, headaches, spinal cord and/or nerve damage, side effects of steroid medication and poor results regarding pain control. The patient understands and wished to proceed. The patient will return to the clinic in approximately 2 weeks for followup. He was counseled on return appointment, activity level and side effects to be aware of. DIAGNOSES: Lumbar radiculopathy with lumbar degenerative disk disease and lumbar post-laminectomy syndrome. PROCEDURE: Lumbar epidural steroid injection, translaminar approach at L4-L5 level using C-arm fluoroscopic guidance under sterile prep and drape using local anesthetic. MEDICATION INJECTED: A total of 120 mg of Depo-Medrol plus 10 mL of preservative-free normal saline and 2 mL of contrast. CONDITION AT DISCHARGE: Stable. The patient tolerated the procedure well and had no complications. CHARLIE DAVALOS MD DR: REBECCA/velasquez JOB#: [id number] / [id number]
== END ==
LOC: PNCL 07:53
PROVIDERS: ATTEND Anesthesiology
DX: M51.16 Intervertebral disc disorders with radiculopathy, lumbar region (principal); M96.1 Postlaminectomy syndrome, not elsewhere classified
CPT/HCPCS: 62323; J1030; J1040; Q9965

== ENCOUNTER → 2020-03-06 | Outpatient (CLI) | payer OTHER ==
[~2020-03-06] MED LIST changes: -IOHEXOL 180 MG/ML 10 ML VIAL. ONE; -methylPREDNISolone ACETATE 40 MG/ML VIAL. ONE; -methylPREDNISolone ACETATE 80 MG/ML VIAL. ONE
--- NOTE | 2020-03-07 00:06 | PAIN ---
DATE OF SERVICE: 03/06/2020 PROGRESS NOTE FOR PAIN CLINIC DIAGNOSES: Lumbar radiculopathy with lumbar degenerative disk disease and lumbar post-laminectomy syndrome. HISTORY OF PRESENT ILLNESS: The patient is a 59-year-old male who returns for followup status post lumbar epidural steroid injection x 2. The patient reports that his pain is decreased for further period of time, still about 75% improved with the shot, but lasting longer now. The patient reports that it went almost 3 weeks at this time, before the pain returned. The first shot was only about a week and a half to 2 weeks, but now is about 3 weeks or more. The patient reports still pain in the low back, left lower extremity, posterior gluteus, posterolateral thigh, lateral anterior thigh and into the anterior medial lower leg. The patient reports it is worse with walking, standing, changing positions, better with sitting or lying down, generally does not awaken him from sleep at night, rates as a 7 on a scale of 10 at all times over the past week, average, worst and least and is a 7 today. Reports it is aching, sharp, dull, tight, shooting, cramping, stabbing, tingling, burning, radiating, becoming more constant and severe with activity. The patient reports he was walking by the footboard of his bed and caught up with his left leg, smacked his thigh, which has increased the pain too and that was just about a week ago. The patient reports otherwise doing well. No new motor or sensory deficits, no bowel or bladder incontinence or other complaints. PHYSICAL EXAMINATION: VITAL SIGNS: The patient's blood pressure 117/84, pulse 65, respirations 18, temperature is 98.8 degrees Fahrenheit, height is 5 feet 7 inches, weight is 173 pounds. GENERAL: The patient is awake, alert, oriented, appropriate, very pleasant demeanor. HEENT: Shows normocephalic, atraumatic. Extraocular movements are intact and symmetrical. Oral cavity: Mucous membranes moist and pink. Dentition is intact. NECK: Shows anterior throat supple without palpable lymphadenopathy noted. Swallow reflex symmetrical. CHEST: Shows normal on inspection. Breath sounds are clear. No rales, rhonchi or wheezes auscultated. HEART: Shows S1, S2 clear. No murmurs auscultated. ABDOMEN: Soft, nontender, nondistended. BACK: Shows spine grossly in the midline. Well-healed surgical scar in the lumbar distribution with some flattening of lumbar lordotic curvature. Paraspinous muscle shows symmetrical on inspection, with palpation shows some moderate tenderness diffusely bilaterally, but only diffusely without significant radiation. The patient has good rotational motion of lumbar spine, both laterally as well as extension and flexion without difficulty. EXTREMITIES: Lower extremities show deep tendon reflexes 1+ in the patellar and tendo-calcaneus tendons. Motor exam is approximately 4 on a scale of 5 on the left, 5/5 on the right. Peripheral pulses are 1+ posterior tibia. No peripheral edema is noted bilaterally. Options were discussed with the patient. The patient's old chart was reviewed as his current medication regimen updated. Current review of systems updated today as well and we will proceed with preauthorization for a third lumbar epidural steroid injection. The patient still has clinical radiculopathy in the left L4-L5 dermatomal distribution, although significantly improved after the last injection and lasting longer, still significant pain in this region in a radicular pattern. We will preauthorize for a translaminar approach at L4-L5 level for lumbar epidural steroid injection as he has done quite well with these. In the meantime, we will continue with stretching and strength exercises, walking daily as well as anti-inflammatories and we will have him followup once preauthorization is obtained for a third lumbar epidural steroid injection at that time. CHARLIE DAVALOS MD DR: REBECCA/velasquez JOB#: [id number] / [id number]
== END | disposition home or self-care (01) ==
LOC: PNCL 08:13
PROVIDERS: ATTEND Anesthesiology
DX: M51.16 Intervertebral disc disorders with radiculopathy, lumbar region (principal); M96.1 Postlaminectomy syndrome, not elsewhere classified; F17.210 Nicotine dependence, cigarettes, uncomplicated; Z79.82 Long term (current) use of aspirin; Z79.899 Other long term (current) drug therapy; Z88.5 Allergy status to narcotic agent; Z82.49 Family history of ischemic heart disease and other diseases of the circulatory system
CPT/HCPCS: G0463

== ENCOUNTER → 2020-04-09 | Outpatient (CLI) | payer OTHER ==
--- NOTE | 2020-04-09 17:26 | KCIC ---
Right hand 3 views. HISTORY: Pain in fingers, M 79.644, attention third MP joint 3 views were taken of the right hand. There is not evidence of an acute fracture. There is deformity of the fifth carpal suggesting an old healed fracture. There are small erosions or tiny subchondral cysts on both sides at the third metacarpal phalangeal joint from mild arthritic process. There is no fracture or bony or other bony destructive process. IMPRESSION: 1. Mild arthritic process third metacarpal phalangeal joint. 2. Old fifth metacarpal carpal fracture. 3. No other acute osseous abnormality. Electronically signed by: Altaf Flor MD (04/09/2020 5:24 PM) [id number]
== END | disposition home or self-care (01) ==
LOC: KCIC 14:15
PROVIDERS: ATTEND Family Medicine
DX: M19.041 Primary osteoarthritis, right hand (principal); M79.644 Pain in right finger(s)
CPT/HCPCS: 73120

== ENCOUNTER → 2020-12-25 | Outpatient (CLI) | payer OTHER ==
[~2020-12-25] MED LIST changes: +AMLO-186 PO; -AMLO5TAB10 PO; +METH-562 PO; -METH750T2 PO
[2020-12-25 10:53] LABS: BASO % 0 % (0-3); EOS # 0.4 x10^3/uL (0.0-0.7); EOS % 4 % (0-3); HEMOGLOBIN 15.3 g/dL (13.0-17.5); LYMPH % 31 % (24-48); MEAN CORPUSCULAR HEMOGLOBIN 32 pg (25-35); MEAN CORPUSCULAR HGB CONC 34 g/dL (31-37); MEAN CORPUSCULAR VOLUME 93 fL (79-100); MONO # 0.6 x10^3/uL (0.0-1.1); MONO % 6 % (0-9); NEUT # 5.9 x10^3/uL (1.8-7.7); NEUT % 60 % (31-73); PLATELET COUNT 274 x10^3/uL (140-400); RED BLOOD COUNT 4.85 x10^6/uL (4.30-5.70); RED CELL DISTRIBUTION WIDTH 13.3 % (11.5-14.5); WHITE BLOOD COUNT 9.9 x10^3/uL (4.0-11.0)
[2020-12-25 11:03] LABS: CALCIUM 9.4 mg/dL (8.5-10.1); GFR 76.5; POTASSIUM 4.6 mmol/L (3.5-5.1); URIC ACID 4.6 mg/dL (3.5-7.2)
[2020-12-25 11:05] LABS: CHOLESTEROL/HDL RATIO 2.6
[2020-12-25 22:16] LABS: RHEUMATOID FACTOR <10.0 IU/mL (0.0-13.9)
[2020-12-25 23:16] LABS: HEMOGLOBIN A1C 5.7 % (4.8-5.6)
[2020-12-26 19:12] LABS: ANA INTERP Negative (.)
== END ==
LOC: LAB 10:20
PROVIDERS: ATTEND Family Medicine
DX: R73.09 Other abnormal glucose (principal); M65.9 Synovitis and tenosynovitis, unspecified; M25.541 Pain in joints of right hand; I25.10 Atherosclerotic heart disease of native coronary artery without angina pectoris
CPT/HCPCS: 36415; 80048; 80061; 83036; 84550; 85025; 85651; 86038; 86431

== ENCOUNTER → 2020-12-25 | Outpatient (CLI) | payer OTHER ==
--- NOTE | 2020-12-25 11:26 | RAD ---
MR#: [id number] Date of Study: 12/25/2020 Ordering Physician: ASHA PADILLA, Referring Physician: ASHA PADILLA, Tech: Delores Malcolm, JIMMYMS, RVT, RTR APPROVED REPORT Patient Location: OUT-PATIENT Indications LEG PAIN VELOCITY AND DOPPLER WAVEFORM ANALYSIS RIGHT cm/secWaveformSeverity LEFT cm/secWaveform Severity dCFA 109.9dCFA 89.1 Prof Fem Art. 89.2Prof Fem Art. 58.4 Fem Art Prox. 86.8Fem Art Prox. 79.2 Fem Art Mid. 113.2Fem Art Mid. 87.9 Fem Art Dist. 68.5Fem Art Dist. 85.5 Pop Art(AK) 63.9Pop Art(AK) 55.2 DEATH CLEARANCE COORDINATOR Prox. 38.4PTA Prox. 47.3 DEATH CLEARANCE COORDINATOR Dist. 48.6PTA Dist. 74.1 Per Art Prox. 49.1Per Art Prox. 45.7 BRIJESH Prox. 48.6ATA Prox. 50.0 DPA 51DPA 100 Findings Grayscale images of the bilateral lower extremity arterial vessels demonstrates mild diffuse arterial plaque and intimal hyperplasia. Spectral waveforms and color Doppler and velocities are within norm al limits bilaterally. There is three-vessel runoff below the knee bilaterally. Critical Notification Critical Value: No <Conclusion> 1. No significant lower extremity arterial disease noted bilaterally Signed by : Asha Padilla, Electronically Approved : 12/25/2020 11:25:59
--- NOTE | 2020-12-25 11:53 | RAD ---
MR#: [id number] Date of Study: 12/25/2020 Ordering Physician: ASHA PADILLA, Referring Physician: ASHA PADILLA, Tech: Delores Malcolm RDMS, RVT, RTR APPROVED REPORT Patient Location: OUT-PATIENT Exam Type: Ankle to Brachial Index Indications LEG PAIN Pressures/Indices RightABI LeftABI Brachial 308eqFo3.16Brachial 206kdMw9.24 Ankle(PT) 126mmHgAnkle(PT) 134mmHg Ankle(DP) 121mmHgAnkle(DP) 132mmHg Findings Normal bilateral CHASE as noted above Critical Notification Critical Value: No <Conclusion> Normal bilateral CHASE. Signed by : Asha Padilla, Electronically Approved : 12/25/2020 11:52:45
--- NOTE | 2020-12-25 12:02 | RAD ---
MR#: [id number] Date of Study: 12/25/2020 Ordering Physician: ASHA PADILLA, Referring Physician: ASHA PADILLA, Tech: Delores Malcolm, JIMMYMS, RVT, RTR APPROVED REPORT Patient Location: OUT-PATIENT Laterality:Bilateral Indications CVA/TIA: Risk Factors TIA/CVA History Doppler Spectral Velocity Analysis Right Left pCCA 79/23 cm/spCCA 84/29 cm/s mCCA 95/32 cm/smCCA 83/30 cm/s dCCA 75/29 cm/sdCCA 80/32 cm/s Bulb 58/20 cm/sBulb 67/14 cm/s ECA 97/27 cm/sECA 83/19 cm/s pICA 59/20 cm/spICA 78/27 cm/s Lali 78/29 cm/smICA 78/32 cm/s dICA 52/24 cm/sdICA 87/36 cm/s Vert. 28/13 cm/sVert. 38/16 cm/s ICA/CCA 0.82ICA/CCA 1.04 Findings Grayscale images of the bilateral carotid vessels demonstrates mild diffuse intimal hyperplasia. Spe ctral waveforms and velocities are within normal limits overall suggestive of 0 to less than 50% sten osis. Normal ICA to CCA ratios bilaterally. Normal antegrade vertebral velocities bilaterally. No significant stenosis identified. Critical Notification Critical Value: No <Conclusion> 1. No significant bilateral extracranial carotid occlusive disease. Signed by : Asha Padilla, Electronically Approved : 12/25/2020 12:02:24
== END ==
LOC: US 09:53
PROVIDERS: ATTEND Internal Medicine Cardiovascular Disease
DX: I65.23 Occlusion and stenosis of bilateral carotid arteries (principal); I70.203 Unspecified atherosclerosis of native arteries of extremities, bilateral legs
CPT/HCPCS: 93880; 93922; 93925

== ENCOUNTER → 2021-08-04 | Outpatient (CLI) | payer OTHER ==
[~2021-08-04] MED LIST changes: +DOCU-148 PO; -DOCU-153 PO; -LISI1TAB20 PO; +LISI1TAB39 PO
--- NOTE | 2021-08-04 13:07 | RAD ---
EXAMINATION: XR SHOULDER 2+ VIEWS BILAT CLINICAL HISTORY: BILATERAL SHOULDER PAIN AND STIFFNESS, NO RECENT INJURY TECHNIQUE: XR SHOULDER 2+ VIEWS BILAT Number of Images/Views: 6 COMPARISON: None FINDINGS: Glenohumeral joint alignment maintained bilaterally. Mild acromioclavicular degenerative changes with small corticated ossicles along the superior joint margins bilaterally. No acute fracture. Acromiohu meral interval maintained bilaterally. IMPRESSION: No acute osseous abnormality. Electronically signed by: Robert Peoples DO (08/04/2021 1:05 PM) [id number]
== END ==
LOC: RAD 10:03
PROVIDERS: ATTEND Family Medicine
DX: M19.011 Primary osteoarthritis, right shoulder (principal); M19.012 Primary osteoarthritis, left shoulder; M25.662 Stiffness of left knee, not elsewhere classified; M25.661 Stiffness of right knee, not elsewhere classified
CPT/HCPCS: 73030-50

== ENCOUNTER → 2021-09-10 | Outpatient (CLI) | payer OTHER ==
--- NOTE | 2021-09-10 14:58 | KCIC ---
EXAMINATION: MRI RIGHT SHOULDER WITHOUT IV CONTRAST CLINICAL HISTORY: Chronic right shoulder pain and LROM from just yrs of overuse. TECHNIQUE: Multiplanar multisequential images obtained through the shoulder without intravenous contr ast. COMPARISON: Bilateral shoulder radiographs 08/04/2021 FINDINGS: TENDONS: - Supraspinatus: Mild tendinosis. - Infraspinatus: Small low-grade interstitial tear at the insertion anteriorly and mild tendinosis. - Subscapularis: Within normal limits. - Teres Minor: Within normal limits. - Biceps Tendon: Long head biceps tendon intact and appropriately located. MUSCLES: Muscle bulk and signal intensity are within normal limits. LABRUM: Inferior labral degeneration with degenerative tearing in the anterior inferior labrum and ad jacent small multilocular paralabral cyst. GLENOHUMERAL JOINT: - Joint Fluid: No joint effusion or synovitis. - Cartilage: Small area of full-thickness chondral loss in the anterior-inferior glenoid. ACROMIOCLAVICULAR JOINT: Mild hypertrophic degenerative changes. BONES/MARROW: No evidence of acute fracture or suspicious marrow replacing process. OTHER: Minimal focal subacromial bursal fluid. IMPRESSION: Small low-grade interstitial tear in the infraspinatus tendon and mild rotator cuff tendinosis. No fu ll-thickness rotator cuff tear. Inferior labral degeneration and degenerative tearing in the anterior-inferior labrum with small para labral cyst. Mild full-thickness chondral wear in the glenoid. Electronically signed by: Robert Peoples DO (09/10/2021 2:55 PM) [id number]
== END ==
LOC: KCIC MRI 07:54
PROVIDERS: ATTEND Nurse Practitioner
DX: S43.491A Other sprain of right shoulder joint, initial encounter (principal); S43.431A Superior glenoid labrum lesion of right shoulder, initial encounter; M75.31 Calcific tendinitis of right shoulder; X58.XXXA Exposure to other specified factors, initial encounter; Y93.89 Activity, other specified; Y92.89 Other specified places as the place of occurrence of the external cause; Y99.8 Other external cause status
CPT/HCPCS: 73221

== ENCOUNTER 2021-11-13 21:00 | Emergency (ER) | payer OTHER, MEDICARE ==
[~2021-11-13] VITALS: Ht 170.2 cm; Wt 79.5 kg
[2021-11-13 21:32] LABS: BASO # 0.2 x10^3/uL (0.0-0.2); BASO % 1 % (0-3); EOS # 0.4 x10^3/uL (0.0-0.7); EOS % 3 % (0-3); HEMATOCRIT 44.3 % (39.0-53.0); HEMOGLOBIN 14.9 g/dL (13.0-17.5); LYMPH # 2.8 x10^3/uL (1.0-4.8); LYMPH % 25 % (24-48); MEAN CORPUSCULAR HEMOGLOBIN 32 pg (25-35); MEAN CORPUSCULAR HGB CONC 34 g/dL (31-37); MEAN CORPUSCULAR VOLUME 94 fL (79-100); MONO # 0.8 x10^3/uL (0.0-1.1); MONO % 7 % (0-9); NEUT # 7.2 x10^3/uL (1.8-7.7); NEUT % 64 % (31-73); PLATELET COUNT 240 x10^3/uL (140-400); RED BLOOD COUNT 4.72 x10^6/uL (4.30-5.70); WHITE BLOOD COUNT 11.3 x10^3/uL (4.0-11.0)
[2021-11-13 21:43] LABS: CALCIUM 9.2 mg/dL (8.5-10.1); CREATININE 1.1 mg/dL (0.7-1.3); GFR 68.3; POTASSIUM 4.3 mmol/L (3.5-5.1)
[2021-11-13 21:49] LABS: ALBUMIN 4.5 g/dL (3.4-5.0); ALBUMIN/GLOBULIN RATIO 1.6 (1.0-1.7); MAGNESIUM 2.3 mg/dL (1.8-2.4); TOTAL BILIRUBIN 0.4 mg/dL (0.2-1.0); TOTAL PROTEIN 7.3 g/dL (6.4-8.2)
[2021-11-13] MEDS ORDERED: IV NORMAL SALINE 1000ML BAG 1,000 ML IV ONE (22:00)
[2021-11-13 22:13] LABS: INFLUENZA A PATIENT NEGATIVE (NEGATIVE); INFLUENZA B PATIENT NEGATIVE (NEGATIVE)
[2021-11-13 22:20] LABS: BILIRUBIN,URINE NEGATIVE (NEG); CLARITY,URINE CLEAR; COLOR,URINE YELLOW; NITRITE,URINE NEGATIVE (NEG); PROTEIN,URINE NEGATIVE (NEG-TRACE); UROBILINOGEN,URINE 0.2 mg/dL (0.2 mg/dL)
[2021-11-13 22:21] LABS: AMORPHOUS SEDIMENT,UR PRESENT /HPF; BACTERIA,URINE 0 /HPF (0-FEW)
[2021-11-13 22:22] LABS: RBC,URINE OCC /HPF (0-2)
[2021-11-13] MEDS ORDERED: KETOROLAC 15 MG/ML VIAL. IVP ONE (22:30)
[2021-11-13] MEDS ORDERED: ORPHENADRINE CITRATE 60 MG/2 ML VIAL. IV ONE (22:30)
--- NOTE | 2021-11-13 22:37 | PHYS DOC ---
Past Medical History Past Medical History: CAD, High Cholesterol, Heart Disease, Hypertension, Other Additional Past Medical Histor: BPH Past Surgical History: Tonsillectomy, Other Additional Past Surgical Histo: "removal of thymus", cardiac cath with stent, knee and shoulder surgery Smoking Status: Former Smoker Alcohol Use: Occasionally Drug Use: None Social History currently on disability due to chronic back pain General Adult EDM: Chief Complaint: SHORTNESS OF BREATH HPI: HPI: Patient is a 61 year old male with a PMH signficant for CAD with stent placement, HTN, and hx of tobacco use that presents with worsening thoracic back pain that started at 2:30 this morning which awoke him from sleep. He describes the pain as non-radiating but feels like he is being "stabbed in the back". The pain started to migrate to his chest earlier this evening. He denies chest tightness or pressure. Endorses increased pain with inspiration and coughing. He took 2 Tylenol at home with minimal relief. He denies new cough. Past surgical history significant for S5-L1 fusion with cage placement and 3 anchors in SI joint. He doesn't work as he is on disability for chronic back pain. Of note, last he was cleaning the attic when he had a syncopal event and was transferred to ED. He left prior to evaluation due to frustrations with wait times. He has followed up with his outpatient provider and had a cardiac event monitor placed 11/12/21. Reports COVID vaccination x 3. Denies known sick contacts. Denies fever, chills, nausea, vomiting, or diarrhea. Denies recent illness. Review of Systems: Review of Systems: Constitutional: Denies fever or chills HENT: Denies nasal congestion or sore throat Respiratory: Denies new cough. Reports pain with inspiration Cardiovascular: Denies chest pain or edema. GI: Denies abdominal pain, nausea, vomiting, bloody stools or diarrhea : Denies dysuria. Musculoskeletal: Chronic back pain Integument: Denies rash Neurologic: Denies headache, focal weakness or sensory changes Complete systems were reviewed and found to be within normal limits, except as documented in this note. Heart Score: C/O Chest Pain: Yes HEART Score for Chest Pain: HEART Score for Chest Pain Response (Comments) Value History Slighlty/Non-Suspicious 0 ECG Normal 0 Age >45 - < 65 1 Risk Factors >3 Risk Factors or Hx CAD 2 Troponin < Normal Limit 0 Total 3 Risk Factors: Risk Factors: DM, Current or recent (<one month) smoker, HTN, HLP, family history of CAD, obesity. Risk Scores: Score 0 - 3: 2.5% MACE over next 6 weeks - Discharge Home Score 4 - 6: 20.3% MACE over next 6 weeks - Admit for Clinical Observation Score 7 - 10: 72.7% MACE over next 6 weeks - Early Invasive Strategies Current Medications: Current Medications Medications (Trade) Dose Ordered Sig/Eddie Start Time Stop Time Status Last Admin Dose Admin Ketorolac Tromethamine (Toradol 15mg Vial) 15 mg 1X ONCE 11/13/21 22:00 11/13/21 22:01 UNV Orphenadrine Citrate (Norflex) 60 mg 1X ONCE 11/13/21 22:00 11/13/21 22:01 UNV Sodium Chloride 1,000 ml @ 1,000 mls/hr 1X ONCE 11/13/21 22:00 11/13/21 22:59 Allergies: Allergies: Allergies Coded Allergies Type Severity Reaction Last Updated Verified codeine Allergy Intermediate 11/13/21 Yes I S O L A T I O N *CONTACT* Allergy Unknown Unknown 01/08/20 Yes Physical Exam: PE: Constitutional: Well developed, no acute distress HENT: Normocephalic, atraumatic Eyes: EOMI, conjunctiva normal Neck: Supple, non-tender Cardiovascular:Heart rate regular rhythm, no murmur Lungs & Thorax: Clear to auscultation, no respiratory distress Abdomen: Soft, non-tender Skin: Warm, dry Back: Paraspinal thoracic tenderness, no midline tenderness Extremities: ROM intact, no edema. Neurologic: Alert and oriented X 3, no focal deficits Psychologic: Affect normal, judgment normal, mood normal Current Patient Data: Labs: Laboratory Tests Test 11/13/21 21:20 White Blood Count 11.3 x10^3/uL (4.0-11.0) H Red Blood Count 4.72 x10^6/uL (4.30-5.70) Hemoglobin 14.9 g/dL (13.0-17.5) Hematocrit 44.3 % (39.0-53.0) Mean Corpuscular Volume 94 fL (79-100) Mean Corpuscular Hemoglobin 32 pg (25-35) Mean Corpuscular Hemoglobin Concent 34 g/dL (31-37) Red Cell Distribution Width 13.0 % (11.5-14.5) Platelet Count 240 x10^3/uL (140-400) Neutrophils (%) (Auto) 64 % (31-73) Lymphocytes (%) (Auto) 25 % (24-48) Monocytes (%) (Auto) 7 % (0-9) Eosinophils (%) (Auto) 3 % (0-3) Basophils (%) (Auto) 1 % (0-3) Neutrophils # (Auto) 7.2 x10^3/uL (1.8-7.7) Lymphocytes # (Auto) 2.8 x10^3/uL (1.0-4.8) Monocytes # (Auto) 0.8 x10^3/uL (0.0-1.1) Eosinophils # (Auto) 0.4 x10^3/uL (0.0-0.7) Basophils # (Auto) 0.2 x10^3/uL (0.0-0.2) Sodium Level 145 mmol/L (136-145) Potassium Level 4.3 mmol/L (3.5-5.1) Chloride Level 104 mmol/L (98-107) Carbon Dioxide Level 29 mmol/L (21-32) Anion Gap 12 (6-14) Blood Urea Nitrogen 17 mg/dL (8-26) Creatinine 1.1 mg/dL (0.7-1.3) Estimated GFR (Cockcroft-Gault) 68.3 BUN/Creatinine Ratio 15 (6-20) Glucose Level 110 mg/dL (70-99) H Calcium Level 9.2 mg/dL (8.5-10.1) Magnesium Level 2.3 mg/dL (1.8-2.4) Total Bilirubin 0.4 mg/dL (0.2-1.0) Aspartate Amino Transferase (AST) Pending Alanine Aminotransferase (ALT) 43 U/L (16-63) Alkaline Phosphatase 109 U/L (46-116) Creatine Kinase 174 U/L (39-308) Creatine Kinase MB (Mass) 0.9 ng/mL (0.0-3.6) Creatine Kinase MB Relative Index 0.5 % (0-4) Troponin I High Sensitivity 5 ng/L (4-75) NE-Fif-I-Type Natriuretic Peptide 6 pg/mL (0-124) Total Protein 7.3 g/dL (6.4-8.2) Albumin 4.5 g/dL (3.4-5.0) Albumin/Globulin Ratio 1.6 (1.0-1.7) Laboratory Tests 11/13/21 21:20 Laboratory Tests 11/13/21 21:20 Vital Signs: Vital Signs Date Time Temp Pulse Resp B/P (MAP) Pulse Ox O2 Delivery O2 Flow Rate FiO2 11/13/21 21:05 97.7 96 18 128/73 (91) 97 Room Air 97.7 EKG: EKG: @2213 NSR at 96. NO ST elevation. WI: 136. QT: 318 Radiology/Procedures: Radiology/Procedures: PROCEDURE: CHEST AP ONLY XR CHEST 1V History: Reason: SOA / Spl. Instructions: / History: Comparison: June 22, 2018 Findings: No consolidation or pleural effusion. Normal heart size. No pneumothorax. Prior median sternotomy. Impression: 1. No acute cardiopulmonary process. Electronically signed by: Donald Dewitt DO (11/13/2021 11:12 PM) [facility] Course & Med Decision Making: Course & Med Decision Making Pertinent Labs and Imaging studies reviewed. (See chart for details) Patient with PMH signficant for Chronic back pain, CAD, HTN, and tobacco use presents with back pain that worsens with inspiration. Denies new cough. Reports syncopal event 1 week ago. Event monitor placed 11/12/21. Labs obtained and [id number] to chart. Troponin and d-dimer WNL. EKG reviewed: Sinus Rhythm. CXR: No acute process. Symptomatic treatment provided. Patient stable for discharge with outpatient follow-up with PCP. Discussed findings and plan with patient and spouse, who acknowledge understanding and agreement. Dragon Disclaimer: Dragon Disclaimer: This electronic medical record was generated, in whole or in part, using a voice recognition dictation system. Departure Departure Impression: Primary Impression: Chest wall pain Additional Impression: Bronchitis Disposition: HOME / SELF CARE / HOMELESS Condition: STABLE Referrals: SIERRA LEAHY MD (PCP) Patient Instructions: Acute Bronchitis, [id number], Chest Wall Pain, Easy-to- Read Scripts Orphenadrine Citrate (ORPHENADRINE CITRATE) 100 Mg Tablet.er 1 TAB PO BID PRN for MUSCLE PAIN, #14 TAB Prov: SIERRA DOZIER DO 11/13/21 Prednisone (PREDNISONE) 20 Mg Tablet 2 TAB PO DAILY for 4 Days, #8 TAB Prov: SIERRA DOZIER DO 11/13/21 SIERRA DOZIER DO Nov 13, 2021 22:37
[2021-11-13 22:45] LABS: PROTHROMBIN TIME PATIENT 12.8 SEC (11.7-14.0)
[2021-11-13 22:49] LABS: D-DIMER 0.36 ug/mlFEU (0.00-0.50)
--- NOTE | 2021-11-13 23:15 | RAD ---
XR CHEST 1V History: Reason: SOA / Spl. Instructions: / History: Comparison: June 22, 2018 Findings: No consolidation or pleural effusion. Normal heart size. No pneumothorax. Prior median sternotomy. Impression: 1. No acute cardiopulmonary process. Electronically signed by: Donald Dewitt DO (11/13/2021 11:12 PM) [facility] [place]
[2021-11-13] MEDS ORDERED: ORPH100T PO (23:21)
[2021-11-13] MEDS ORDERED: PRED20TA PO (23:21)
[2021-11-13 23:28] VITALS: BP 115/70
[2021-11-13] MEDS ORDERED: DEXAMETHASONE 4 MG TABLET PO ONE (23:30)
--- NOTE | 2021-11-13 23:39 | EKG ---
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
== END 2021-11-13 23:35 | disposition home or self-care (01) ==
LOC: ER 21:00
DX: J40 Bronchitis, not specified as acute or chronic (principal); R07.89 Other chest pain; Z20.822 Contact with and (suspected) exposure to COVID-19; G89.29 Other chronic pain; M54.6 Pain in thoracic spine; I25.10 Atherosclerotic heart disease of native coronary artery without angina pectoris; I11.9 Hypertensive heart disease without heart failure; Z87.891 Personal history of nicotine dependence; Z88.5 Allergy status to narcotic agent; Z91.041 Radiographic dye allergy status
CPT/HCPCS: 36415; 71045; 80053; 81001; 82553; 83605; 83735; 83880; 84484; 85025; 85379; 85610; 85730; 87428; 93005; 96361; 96374; 96375; 99285; J1885; J2360; J7030

== ENCOUNTER → 2021-11-24 | Outpatient (CLI) | payer MEDICARE, OTHER ==
[2021-11-13 23:28] VITALS: BP 115/70
[~2021-11-24] MED LIST changes: +ORPH100T PO; +PRED20TA PO
--- NOTE | 2021-11-26 09:22 | CARD ---
MR#: [id number] Date of Study: 11/24/2021 Ordering Physician: ASHA PADILLA, Referring Physician: ASHA PADILLA, Tech: Duong Mcneil [facility] APPROVED REPORT EXAM: Two-dimensional and M-mode echocardiogram with Doppler and color Doppler. Other Information Quality : AverageHR: 71bpm Rhythm : NSR INDICATION Syncope RISK FACTORS Hypertension Hyperlipidemia Smoking 2D DIMENSIONS Left Atrium(2D)3.9 (1.6-4.0cm)IVSd1.0 (0.7-1.1cm) Aortic Root(2D)3.6 (2.0-3.7cm)LVDd4.4 (3.9-5.9cm) LVOT Diameter2.0 (1.8-2.4cm)PWd1.0 (0.7-1.1cm) LA [id number] (18-58mL)LVDs3.1 (2.5-4.0cm) FS (%) 31.1 %SV52.8 ml Mitral Valve MV E Ybhckzrp23.7cm/sMV DECEL [id number] MV A Xlxtwcfk61.6cm/sMV E Mean Gr.2mmHg MV TBU29wpQ/A Ratio1.3 MVA (PHT)3.28cm2 Pulmonary Valve PV Peak Sngwuxet94.8cm/sPV Peak Grad.4mmHg Tricuspid Valve TR P. Cjhsqhju624to/sTR Peak Gr.22mmHg Pulmonary Vein S1 Hvipwmux85.2cm/sD2 Ykfhqlqk82.6cm/s LEFT VENTRICLE The left ventricle is normal size. There is normal left ventricular wall thickness. The left ventricu lar systolic function is normal and the ejection fraction is within normal range. LV ejection fractio n of 50 to 55%. There is normal LV segmental wall motion. No left ventricle thrombus noted on this st udy. There is no ventricular septal defect visualized. There is no left ventricular aneurysm. There i s no mass noted in the left ventricle. RIGHT VENTRICLE The right ventricle is normal size. There is normal right ventricular wall thickness. The right ventr icular systolic function is normal. ATRIA The left atrium size is normal. The right atrium size is normal. The interatrial septum is intact wit h no evidence for an atrial septal defect or patent foramen ovale as noted on 2-D or Doppler imaging. AORTIC VALVE The aortic valve is normal in structure and function. Doppler and Color Flow revealed no significant aortic regurgitation. There is no significant aortic valvular stenosis. There is no aortic valvular v egetation. MITRAL VALVE The mitral valve is mildly thickened. There is no evidence of mitral valve prolapse. There is no mitr al valve stenosis. Doppler and Color-flow revealed trace to mild mitral regurgitation. TRICUSPID VALVE The tricuspid valve is normal in structure and function. Doppler and Color Flow revealed trace tricus pid regurgitation. The PA pressure was estimated at 30 mmHg. There is no tricuspid valve prolapse or vegetation. There is no tricuspid valve stenosis. PULMONIC VALVE The pulmonary valve is normal in structure and function. Doppler and Color Flow revealed no pulmonic valvular regurgitation. There is no pulmonic valvular stenosis. GREAT VESSELS The aortic root is normal in size. The ascending aorta is normal in size. The pulmonary artery is nor mal. The IVC is normal in size and collapses >50% with inspiration. PERICARDIAL EFFUSION There is no pleural effusion. There is no evidence of significant pericardial effusion. Critical Notification Critical Value: No <Conclusion> The left ventricle is normal size. The left ventricular systolic function is normal and the ejection fraction is within normal range. LV ejection fraction of 50 to 55%. Doppler and Color Flow revealed no significant aortic regurgitation. There is no significant aortic valvular stenosis. Doppler and Color-flow revealed trace to mild mitral regurgitation. Doppler and Color Flow revealed trace tricuspid regurgitation. The PA pressure was estimated at 30 mmHg. Signed by : Horacoi Mckeon MD Electronically Approved : 11/26/2021 09:21:32
== END ==
LOC: ECHO 07:45
PROVIDERS: ATTEND Internal Medicine Cardiovascular Disease
DX: I34.0 Nonrheumatic mitral (valve) insufficiency (principal); R55 Syncope and collapse
CPT/HCPCS: 93306; C8929

== ENCOUNTER → 2021-11-27 | Outpatient (CLI) | payer OTHER, MEDICARE ==
[2021-11-13 23:28] VITALS: BP 115/70
[~2021-11-27] MED LIST changes: -OMEP20TA8 PO; +OMEP20TA91 PO
--- NOTE | 2021-11-27 13:47 | KCIC ---
EXAM: CT CHEST WITHOUT CONTRAST (LDCT LUNG CANCER SCREENING). HISTORY: Risk factors for pulmonary malignancy. Nicotine dependence. Smoker 53 years. TECHNIQUE: CT of the chest was performed without intravenous contrast using a low-dose lung screening protocol. Findings analysis is based on ACR Lung-RADS v1.1. *One or more of the following individual ized dose reduction techniques were utilized for this examination: 1. Automated exposure control. 2. Adjustment of the mA and/or kV according to patient size. 3. Use of iterative reconstruction technique. COMPARISON: None. FINDINGS: Thyroid gland is normal in appearance. Median sternotomy changes are present. There are no pathologically enlarged axillary, mediastinal or hilar lymph nodes. Heart size is within normal limits. Thoracic aorta is normal in course and caliber. There is no significant pericardial e ffusion. Thoracic esophagus is normal in appearance. Anterior chest wall appears intact. There is a 2 .1 x 1.7 x 2.2 cm cystic outpouching analyzing from the right lateral aspect of the mid thoracic esop hagus. There is a 2 mm solid noncalcified pulmonary nodule in the left upper lobe (series 3, image 206). The re is a 3 mm calcified granuloma in the inferior lingula (image 278). There is an adjacent 2 mm calci fied granuloma (image 287). There is a 2 mm solid noncalcified pulmonary nodule in the left lower lob e laterally (series 3, image 312). There is a 3 mm solid noncalcified pulmonary nodule along the paula r fissure (series 3, image 216). 8 mm calcified granuloma identified the right lung base. There are n o pleural effusions, pulmonary vascular congestion or pneumothorax. Lungs are clear without focal air space consolidation. Central airways are clear. Visualized portions of the upper abdomen are normal in appearance within limitations of a noncontrast examination. Cholecystectomy. No suspicious osseous abnormality. No paraspinal soft tissue mass. IMPRESSION/RECOMMENDATION: 1. ACR Lung-RADS category: 2, benign appearance or behavior. Solid noncalcified pulmonary nodules jolly sure up to 2-3 mm. 2. Continue annual screening with LDCT in 12 months. 3. Cystic area along the right lateral margin of the mid thoracic esophagus measures 2.1 x 1.7 x 2.2 cm. Differential considerations would include an esophageal duplication cyst, bronchogenic cyst or es ophageal diverticulum. Further evaluation with contrast-enhanced CT or esophagram could be of benefit . Electronically signed by: Dianna Kapoor MD (11/27/2021 1:44 PM) [id number]
== END ==
LOC: KCIC CT 12:15
PROVIDERS: ATTEND Family Medicine
DX: Z12.2 Encounter for screening for malignant neoplasm of respiratory organs (principal); R91.8 Other nonspecific abnormal finding of lung field; J84.10 Pulmonary fibrosis, unspecified; K22.89 Other specified disease of esophagus; Z90.49 Acquired absence of other specified parts of digestive tract; Z72.0 Tobacco use
CPT/HCPCS: 71271